=== PATIENT | male | born 1985 | race Caucasian/White ===

== ENCOUNTER 2016-09-13 19:44 | Emergency (ER) | payer OTHER ==
[2016-09-13 20:02] VITALS: RESP 18
[2016-09-13] MEDS ORDERED: PROPARACAINE 0.5% OPHTH DROPS 15 ML BTL LEFT EYE STA (20:34)
[2016-09-13] MEDS ORDERED: DIPH,PERTUS(ACELL)TETVAC-LF 0.5 ML VIAL IM ONE (20:43)
--- NOTE | 2016-09-13 20:47 | ED ---
General Adult HPI - General Chief complaint: Eye Problems Stated complaint: metal in eye Time Seen by Provider: 09/13/16 20:32 Source: patient, RN notes reviewed Mode of arrival: ambulatory Limitations: no limitations - History of Present Illness Initial comments: This is a 31-year-old male who presents with a foreign body to the left eye. Patient states this happened this morning at work around 7am. 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 Patient is not sure if he is up to date on his tetanus shot. Patient states the vision in his left eye is somewhat blurry. Patient states he tried to flush out his eye but was unsuccessful with removal of the foreign body. Patient does not wear contacts. Patient denies any recent fever, chills, shortness breath, chest pain , abdominal pain, nausea/vomiting/diarrhea, back pain, numbness, tingling, hematuria, headache, or any other complaints. - Related Data Home Medications Medication Instructions Recorded Confirmed [id number] 1 tab PO Q4HR PRN 10/12/15 08/01/16 [Excedrin] HYDROmorphone HCL [Dilaudid] 8 mg PO Q3-4H PRN 10/12/15 08/01/16 Ibuprofen [Motrin] 800 mg PO Q8HR PRN 10/12/15 08/01/16 Methadone [Dolophine] 10 mg PO Q12HR 10/12/15 08/01/16 Heparin Sod 1000 Unit/1Ml [Heparin 0 unit IV DAILY 11/11/15 08/01/16 Sodium] IV Vancomycin Per Pharmacy 0 mg IVPB DAILY 11/11/15 08/01/16 [Vancomycin IV (Pharmacy to dose)] Lansoprazole [Prevacid] 15 mg PO DAILY PRN 11/11/15 08/01/16 diphenhydrAMINE [Benadryl] 50 mg PO Q4H PRN 11/11/15 08/01/16 Previous Rx's Medication Instructions Recorded Amoxic-Pot Clav 875-125Mg 1 tab PO Q12HR 7 Days 08/01/16 [Augmentin 875-125] Ofloxacin [Floxin 0.3% Otic Soln] 10 drops LEFT EAR BID 14 Days 08/01/16 Erythromycin Ophth Oint [Romycin 1 applic LEFT EYE QID 5 Days 09/13/16 Ophth Oint] traMADol HCL [Ultram] 50 mg PO Q6HR #12 tab 09/13/16 Allergies Allergy/AdvReac Type Severity Reaction Status Date / Time cefepime Allergy Rash/Hives Verified 09/13/16 20:02 prochlorperazine edisylate Allergy SEIZURE Verified 09/13/16 20:02 [From Compazine] prochlorperazine maleate Allergy SEIZURE Verified 09/13/16 20:02 [From Compazine] Review of Systems ROS Statement: Those systems with pertinent positive or pertinent negative responses have been documented in the HPI. ROS Other: All systems not noted in ROS Statement are negative. Past Medical History Past Medical History: Asthma, GERD/Reflux Additional Past Medical History / Comment(s): 10/12/15 Pt is a direct admit with osteomyelitis sternum. He has been having pain swelling and redness for past 2 months. Pt states had quit heroin for a year Additional hx; lower back pain with arthritis, herniated discs, migraines , seizure with compazine as a child and once while in rehab in 2013. History of Any Multi-Drug Resistant Organisms: None Reported Past Surgical History: No Surgical Hx Reported Additional Past Surgical History / Comment(s): HAD EAR SURGERY AN twice. Cystoscopy Past Anesthesia/Blood Transfusion Reactions: No Reported Reaction Past Psychological History: ADD/ADHD, Anxiety Additional Psychological History / Comment(s): Pt lives with his mother. He states he has hx of heroin iv drug use. His physician has prescribed dilaudid but it is not covering the pain per pt. He states he takes the dialudid as prescribed. Smoking Status: Current every day smoker Past Alcohol Use History: Occasional Additional Past Alcohol Use History / Comment(s): Pt states he started smoking at age 18 or 19. He is 1PPD smoker. Past Drug Use History: None Reported Additional Drug Use History / Comment(s): Pt has hx of heroin addiction, opiate addiction. He was clean of heroin for about 1 yr with relapse 2 months ago and last heroin used 2 days ago. He has been buying methadone on the street and has a prescripition for dilaudid which he states is not covering the pain. He states he takes the dilaudid as prescribed. - Past Family History Father Additional Family Medical History / Comment(s): FATHER HAS EMPHYSEMA AND STAGE IV LUNG CA. ALSO HAS AN AORTIC ANEURYSM. Mother Family Medical History: Cancer Additional Family Medical History / Comment(s): BREAST CANCER. General Exam - General Exam Comments Initial Comments: General: The patient is awake and alert, in no distress, and does not appear acutely ill. Eye: There is mild conjunctival injection of the left eye. There is a foreign body noted to the 2 o'clock and 7 o'clock position of the eye. There is no foreign body noted with eyelid eversion. There is no purulent drainage. Pupils are equal, round and reactive to light, extra-ocular movements are intact. No nystagmus. There is normal conjunctiva of the right eye. No signs of icterus. Visual acuity is 20/40 of the left eye and 20/25 of the right eye. Neck: The neck is supple, there is no tenderness or JVD. Cardiovascular: There is a regular rate and rhythm. No murmur, rub or gallop is appreciated. Respiratory: Lungs are clear to auscultation, respirations are non-labored, breath sounds are equal. No wheezes, stridor, rales, or rhonchi. Musculoskeletal: Normal ROM, no tenderness. Strength 5/5. Sensation intact. Radial Pulses equal bilaterally 2+. Neurological: A&O x 3. CN II-XII intact, There are no obvious motor or sensory deficits. Coordination appears grossly intact. Speech is normal. Skin: Skin is warm and dry and no rashes or lesions are noted. Psychiatric: Cooperative, appropriate mood & affect, normal judgment. Limitations: no limitations Course Vital Signs 09/13/16 09/13/16 19:59 21:58 Temperature 98.5 F 98 F Pulse Rate 79 84 Respiratory 18 18 Rate Blood Pressure 142/79 140/68 O2 Sat by Pulse 98 96 Oximetry Procedures - Procedures Initial comment: A slit lamp exam was performed and rust ring with metal foreign body was noted to the 2:00 and 7:00 positions. Proparacaine was used to anesthetize the eye. Patient's symptoms were relieved after proparacaine drops. Used cotton tip to attempt to remove foreign body. No foreign body was removed with cotton tip. An [place] brush was used to remove the rust ring. Foreign body was removed successfully from 2 o'clock position and 7:00 positions. Rust ring was unable to be removed fully. Inverted lids to check for foreign body and no foreign body was noted. Patient tolerated procedure well. Medical Decision Making - Medical Decision Making This is a 31-year-old male who presents with foreign body to left eye. On physical exam There is mild conjunctival injection of the left eye. There is a foreign body noted to the 2 o'clock and 7:00 positions of the eye. There is no foreign body noted with eyelid eversion. There is no purulent drainage. Pupils are equal, round and reactive to light, extra-ocular movements are intact. No nystagmus. There is normal conjunctiva of the right eye. No signs of icterus. Visual acuity is 20/40 of the left eye and 20/25 of the right eye. Proparacaine was applied to the left eye with relief of symptoms. A slit lamp exam was performed and rust ring with metcal foreign body was noted to the 2:00 and 7:00 positions. Proparacaine was used to anesthetize the eye. Patient's symptoms were relieved after proparacaine drops. Used cotton tip to attempt to remove foreign body. No foreign body was removed with cotton tip. An [place] brush was used to remove the rust ring. Foreign body was successfully removed from 2 o'clock position and 7:00 positions. Rust ring was unable to be fully removed. Everted eyelids to check for foreign body and no foreign body was noted. Patient tolerated procedure well. I discussed that patient needs to follow-up with ophthalmology tomorrow. Patient will be given a prescription for erythromycin ointment to be applied 4 times daily for the next 5 days. Discussed the patient will be given a prescription for pain medication otherwise Tylenol or Motrin will be useful. Discussed return parameters.Discussed that patient should follow up with PCP in one to 2 days or return to the [facility] for any worsening symptoms or for any further concerns. Patient was receptive to this plan and patient will be discharged home. Disposition Clinical Impression: Foreign body in eyeball, left, Corneal rust ring of left eye Disposition: HOME SELF-CARE Condition: Good Instructions: Eye Foreign Body (ED) Additional Instructions: Please use antibiotic eye ointment 4 times daily to the left eye. Please follow -up with ophthalmology tomorrow. Please use medication as discussed. Please follow-up with family doctor in the next 2 days of symptoms have not improved. Please return to emergency room if the symptoms increase or worsen or for any other concerns. Prescriptions: Erythromycin Ophth Oint [Romycin Ophth Oint] 1 applic LEFT EYE QID 5 Days traMADol HCL [Ultram] 50 mg PO Q6HR #12 tab Referrals: Pedro Pablo Nunez MD [Primary Care Provider] - 1-2 days Jacek Cruz MD [STAFF PHYSICIAN] - 1-2 days Time of Disposition: 21:46
[2016-09-13 22:00] VITALS: BP 140/68; PULSE 84; TEMP 98
[2016-09-14] MEDS ORDERED: ERYTHROMYCIN 5 MG/GM OPHTH OINT 3.5 GM TUBE LEFT EYE SCH
== END 2016-09-13 21:58 | disposition home or self-care (01) ==
LOC: EC 19:44
DX: T15.02XA Foreign body in cornea, left eye, initial encounter (principal); Z23 Encounter for immunization; F17.200 Nicotine dependence, unspecified, uncomplicated; X58.XXXA Exposure to other specified factors, initial encounter; Y92.69 Other specified industrial and construction area as the place of occurrence of the external cause; Y99.0 Civilian activity done for income or pay; Z79.899 Other long term (current) drug therapy; Z88.1 Allergy status to other antibiotic agents; Z88.8 Allergy status to other drugs, medicaments and biological substances; F11.99 Opioid use, unspecified with unspecified opioid-induced disorder; Z79.2 Long term (current) use of antibiotics; Z79.01 Long term (current) use of anticoagulants
CPT/HCPCS: 65222; 90471; 90715; 99283

== ENCOUNTER 2016-10-17 02:23 | Emergency (ER) | payer OTHER ==
[2016-10-17 02:39] VITALS: RESP 16; TEMP 98.1
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
--- NOTE | 2016-10-17 03:31 | CT ---
PROCEDURE: CT HEAD Without Contrast HISTORY: 31-year-old male with head pain. COMPARISON: CT head 08/01/2016 TECHNIQUE: CT imaging was obtained through the head. Coronal and sagittal reformations were performed. DOSE: Total Exam volume computed tomography dose index (CTDIvol) = 60.3 mGy and Dose Length Product (DLP) = 1072.3 mGY-cm. FINDINGS: There is no evidence of acute intracranial hemorrhage, mass effect, or midline shift. The ventricles, sulci, and cisternal spaces are within normal limits. The edmonds-white matter differentiation is preserved. The bony structures are intact. Visualized mastoid air cells are clear. Mild mucosal thickening throughout the paranasal sinuses Visualized portions of the orbits are within normal limits. IMPRESSION: 1. No CT evidence of acute intracranial abnormality. 2. Other findings as detailed above.
--- NOTE | 2016-10-17 03:34 | XR ---
PROCEDURE: FILM CXR 1 VIEW HISTORY: 31-year-old male with altered mental status. COMPARISON: Chest radiograph 11/30/2015 TECHNIQUE: Frontal view of the chest was obtained. FINDINGS/IMPRESSION: Stable cardiomediastinal silhouette. The lungs are clear without evidence of focal consolidation, pleural effusion, or pneumothorax. Bones are unremarkable for age, without evidence of displaced fracture.
[2016-10-17 04:31] LABS: ALT 38 U/L (21-72); AST 47 U/L (17-59); Alcohol <10 mg/dL; Alkaline Phosphatase 104 U/L (38-126); Anion Gap 13 mmol/L; Calcium 9.4 mg/dL (8.4-10.2); Carbon Dioxide 23 mmol/L (22-30); Chloride 103 mmol/L (98-107); Glucose 77 mg/dL (74-99); Non-African American GFR(MDRD) >60 (>60 ml/min/1.73 sqM); Potassium 4.6 mmol/L (3.5-5.1); Sodium 139 mmol/L (137-145); Total Bilirubin 0.8 mg/dL (0.2-1.3); Total Protein 8.3 g/dL (6.3-8.2)
[2016-10-17 04:32] LABS: Blood Urea Nitrogen 21 mg/dL (9-20)
[2016-10-17 04:46] LABS: Creatine Kinase 412 U/L (55-170)
[2016-10-17 04:59] LABS: Troponin I <0.012 ng/mL (0.000-0.034)
[2016-10-17 05:13] LABS: Appearance,Urine Cloudy (Clear); Bacteria,Urine Rare /hpf; Bilirubin,Urine Negative (Negative); Glucose,Urine (UA) Negative (Negative); Ketones,Urine 1+ (Negative); Leukocyte Esterase,Urine Negative (Negative); Mucus,Urine Few /hpf; Nitrite,Urine Negative (Negative); PH, Urine 6.5 (5.0-8.0); Particle Count 7107; Protein,Urine Negative (Negative); RBC,Urine <1 /hpf (0-5); Specific Gravity,Urine 1.012 (1.001-1.035); Squamous Epithelial Cell,Urine 13 /hpf (0-4); UA Billing (MACRO vs. MICRO) MICRO; Urobilinogen,Urine <2.0 mg/dL (<2.0); WBC,Urine 1 /hpf (0-5)
[2016-10-17 05:26] LABS: Basophils % (A) 0 %; CH 28.8; CHCM 33.8; Eosinophils # (A) 0.3 k/uL (0-0.7); Eosinophils % (A) 4 %; HCT 42.2 % (39.0-53.0); HDW 3.04; HGB 13.6 gm/dL (13.0-17.5); Luc # (Auto) 0.11; Luc % (Auto) 2; Lymphocytes # (A) 0.6 k/uL (1.0-4.8); Lymphocytes % (A) 9 %; MCH 27.6 pg (25.0-35.0); MCHC 32.3 g/dL (31.0-37.0); MCV 85.5 fL (80.0-100.0); Monocytes # (A) 0.5 k/uL (0-1.0); Monocytes % (A) 7 %; Neutrophils # (A) 5.5 k/uL (1.3-7.7); Neutrophils % (A) 79 %; RBC 4.93 m/uL (4.30-5.90); RDW 12.1 % (11.5-15.5); WBC (Perox) 7.77
[2016-10-17 06:12] VITALS: BP 138/62; PULSE 78
== END 2016-10-17 06:32 | disposition home or self-care (01) ==
LOC: EC 02:23
DX: R41.82 Altered mental status, unspecified (principal); K21.9 Gastro-esophageal reflux disease without esophagitis; F17.200 Nicotine dependence, unspecified, uncomplicated; F11.90 Opioid use, unspecified, uncomplicated; Z79.891 Long term (current) use of opiate analgesic; Z79.899 Other long term (current) drug therapy; Z88.8 Allergy status to other drugs, medicaments and biological substances; Z88.1 Allergy status to other antibiotic agents
CPT/HCPCS: 36415; 70450; 71010; 80053; 80306; 80320; 81001; 82140; 82550; 82553; 84484; 85025; 93005; 99285

== ENCOUNTER → 2016-11-13 | Outpatient (CLI) | payer OTHER ==
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
== END | disposition home or self-care (01) ==
LOC: NEUROMAIN 09:24
PROVIDERS: ATTEND Family Medicine
DX: R56.9 Unspecified convulsions (principal)
CPT/HCPCS: 95816

== ENCOUNTER 2017-02-12 14:41 | Observation (INO) | payer OTHER ==
--- NOTE | 2017-02-12 14:53 | ED ---
General Adult HPI - General Chief complaint: Extremity Injury, Upper Stated complaint: L hand infection Time Seen by Provider: 02/12/17 14:53 Source: patient, RN notes reviewed, old records reviewed Mode of arrival: ambulatory Limitations: no limitations - History of Present Illness Initial comments: This is a 31-year-old male to the ER for evaluation of hand swelling left hand pain. Patient states he did punch a wall and is complaining of pain and swelling in his left hand. Patient has significant track guzman throughout upper extremities, patient has left hand pain. Left hand swelling and erythema. Denies fevers. Denies recent IV drug abuse - Related Data Home Medications Medication Instructions Recorded Confirmed Meinzax-Nogz-Kcta [id number] 1 tab PO Q4HR PRN 10/12/15 08/01/16 [Excedrin] HYDROmorphone HCL [Dilaudid] 8 mg PO Q3-4H PRN 10/12/15 08/01/16 Ibuprofen [Motrin] 800 mg PO Q8HR PRN 10/12/15 08/01/16 Methadone [Dolophine] 10 mg PO Q12HR 10/12/15 08/01/16 Heparin Sod 1000 Unit/1Ml [Heparin 0 unit IV DAILY 11/11/15 08/01/16 Sodium] IV Vancomycin Per Pharmacy 0 mg IVPB DAILY 11/11/15 08/01/16 [Vancomycin IV (Pharmacy to dose)] Lansoprazole [Prevacid] 15 mg PO DAILY PRN 11/11/15 08/01/16 diphenhydrAMINE [Benadryl] 50 mg PO Q4H PRN 11/11/15 08/01/16 Previous Rx's Medication Instructions Recorded Amoxic-Pot Clav 875-125Mg 1 tab PO Q12HR 7 Days 08/01/16 [Augmentin 875-125] Ofloxacin [Floxin 0.3% Otic Soln] 10 drops LEFT EAR BID 14 Days 08/01/16 Erythromycin Ophth Oint [Romycin 1 applic LEFT EYE QID 5 Days 09/13/16 Ophth Oint] traMADol HCL [Ultram] 50 mg PO Q6HR #12 tab 09/13/16 Allergies Allergy/AdvReac Type Severity Reaction Status Date / Time cefepime Allergy Rash/Hives Verified 02/12/17 14:49 prochlorperazine edisylate Allergy SEIZURE Verified 02/12/17 14:49 [From Compazine] prochlorperazine maleate Allergy SEIZURE Verified 02/12/17 14:49 [From Compazine] Review of Systems ROS Statement: Those systems with pertinent positive or pertinent negative responses have been documented in the HPI. ROS Other: All systems not noted in ROS Statement are negative. Past Medical History Past Medical History: Asthma, GERD/Reflux Additional Past Medical History / Comment(s): 10/12/15 Pt is a direct admit with osteomyelitis sternum. He has been having pain swelling and redness for past 2 months. Pt states had quit heroin for a year Additional hx; lower back pain with arthritis, herniated discs, migraines , seizure with compazine as a child and once while in rehab in 2013. History of Any Multi-Drug Resistant Organisms: None Reported Past Surgical History: No Surgical Hx Reported Additional Past Surgical History / Comment(s): HAD EAR SURGERY AN twice. Cystoscopy Past Anesthesia/Blood Transfusion Reactions: No Reported Reaction Past Psychological History: ADD/ADHD, Anxiety Smoking Status: Current every day smoker Past Alcohol Use History: Occasional Past Drug Use History: None Reported - Past Family History Father Additional Family Medical History / Comment(s): FATHER HAS EMPHYSEMA AND STAGE IV LUNG CA. ALSO HAS AN AORTIC ANEURYSM. Mother Family Medical History: Cancer Additional Family Medical History / Comment(s): BREAST CANCER. General Exam - General Exam Comments Initial Comments: significant swelling R hand, warmth, edema Limitations: no limitations General appearance: alert, in no apparent distress Head exam: Present: atraumatic, normocephalic, normal inspection Eye exam: Present: normal appearance, PERRL, EOMI. Absent: scleral icterus, conjunctival injection, periorbital swelling ENT exam: Present: normal exam, mucous membranes moist Neck exam: Present: normal inspection. Absent: tenderness, meningismus, lymphadenopathy Respiratory exam: Present: normal lung sounds bilaterally. Absent: respiratory distress, wheezes, rales, rhonchi, stridor Cardiovascular Exam: Present: regular rate, normal rhythm, normal heart sounds. Absent: systolic murmur, diastolic murmur, rubs, gallop, clicks GI/Abdominal exam: Present: soft, normal bowel sounds. Absent: distended, tenderness, guarding, rebound, rigid Extremities exam: Present: normal inspection, full ROM, normal capillary refill. Absent: tenderness, pedal edema, joint swelling, calf tenderness Back exam: Present: normal inspection Neurological exam: Present: alert, oriented X3, CN II-XII intact Psychiatric exam: Present: normal affect, normal mood Skin exam: Present: warm, dry, intact, normal color. Absent: rash Course Vital Signs 02/12/17 14:46 Temperature 97.9 F Pulse Rate 119 H Respiratory 18 Rate Blood Pressure 135/83 O2 Sat by Pulse 99 Oximetry - Reevaluation(s) Reevaluation #1: 02/12/17 16:37 Patient is in no acute distress Medical Decision Making - Medical Decision Making 31 no the ER with left hand abscess likely IV drug abuse, patient will be admitted for IV antibiotics, evaluation by hand surgery - Lab Data Result diagrams: 02/12/17 15:32 02/12/17 15:32 Lab Results 02/12/17 02/12/17 02/12/17 Range/Units 15:32 15:32 15:32 WBC 9.2 (3.8-10.6) k/uL RBC 4.86 (4.30-5.90) m/uL Hgb 14.2 (13.0-17.5) gm/dL Hct 39.5 (39.0-53.0) % MCV 81.2 (80.0-100.0) fL MCH 29.3 (25.0-35.0) pg MCHC 36.0 (31.0-37.0) g/dL RDW 12.7 (11.5-15.5) % Plt Count 250 (150-450) k/uL Neutrophils % 84 % Lymphocytes % 7 % Monocytes % 4 % Eosinophils % 4 % Basophils % 1 % Neutrophils # 7.7 (1.3-7.7) k/uL Lymphocytes # 0.6 L (1.0-4.8) k/uL Monocytes # 0.4 (0-1.0) k/uL Eosinophils # 0.4 (0-0.7) k/uL Basophils # 0.1 (0-0.2) k/uL PT 10.4 (9.0-12.0) sec INR 1.0 (<1.1) APTT 27.2 (22.0-30.0) sec Sodium 138 (137-145) mmol/L Potassium 4.4 (3.5-5.1) mmol/L Chloride 102 (98-107) mmol/L Carbon Dioxide 26 (22-30) mmol/L Anion Gap 10 mmol/L BUN 9 (9-20) mg/dL Creatinine 0.80 (0.66-1.25) mg/dL Est GFR (MDRD) Af Amer >60 (>60 ml/min/1.73 sqM) Est GFR (MDRD) Non-Af >60 (>60 ml/min/1.73 sqM) Glucose 106 H (74-99) mg/dL Calcium 9.4 (8.4-10.2) mg/dL Phosphorus 3.1 (2.5-4.5) mg/dL Magnesium 1.6 (1.6-2.3) mg/dL Total Bilirubin 0.7 (0.2-1.3) mg/dL AST 20 (17-59) U/L ALT 34 (21-72) U/L Alkaline Phosphatase 131 H (38-126) U/L Total Protein 7.0 (6.3-8.2) g/dL Albumin 3.8 (3.5-5.0) g/dL - Radiology Data Radiology results: report reviewed (X-ray left hand shows no osteo, no air), image reviewed Disposition Clinical Impression: Abscess of left hand, IV drug abuse Disposition: ADMITTED IP TO THIS HOSP Condition: Good Referrals: Pedro Pablo Nunez MD [Primary Care Provider] - 1-2 days
[2017-02-12] MEDS ORDERED: SODIUM CHLORIDE 0.9% 1,000 ML IV STA (15:10)
--- NOTE | 2017-02-12 15:28 | XR ---
EXAMINATION TYPE: XR hand complete LT DATE OF EXAM: 02/12/2017 COMPARISON: NONE HISTORY: Injury pain TECHNIQUE: 3 views FINDINGS: There is significant soft tissue swelling on the dorsum of the hand. The metacarpals appear intact. I see no fracture. Joint spaces are normal. IMPRESSION: Significant soft tissue swelling. No fracture seen.
[2017-02-12 15:48] LABS: Basophils # (A) 0.1 k/uL (0-0.2); Basophils % (A) 1 %; CHCM 35.8; Eosinophils # (A) 0.4 k/uL (0-0.7); Eosinophils % (A) 4 %; HCT 39.5 % (39.0-53.0); HDW 2.86; HGB 14.2 gm/dL (13.0-17.5); Luc # (Auto) 0.07; Luc % (Auto) 1; Lymphocytes # (A) 0.6 k/uL (1.0-4.8); Lymphocytes % (A) 7 %; MCH 29.3 pg (25.0-35.0); MCV 81.2 fL (80.0-100.0); Monocytes # (A) 0.4 k/uL (0-1.0); Monocytes % (A) 4 %; Neutrophils # (A) 7.7 k/uL (1.3-7.7); Neutrophils % (A) 84 %; RBC 4.86 m/uL (4.30-5.90); RDW 12.7 % (11.5-15.5); WBC 9.2 k/uL (3.8-10.6); WBC (Perox) 8.02
[2017-02-12] MEDS ORDERED: IV VANCOMYCIN PER PHARMACY 1 EACH MISC MISCELLANE PRN (15:58)
[2017-02-12] MEDS ORDERED: MORPHINE SULFATE 4 MG/ML SYRINGE IVP STA (15:58)
[2017-02-12 16:03] LABS: ALT 34 U/L (21-72); AST 20 U/L (17-59); Alkaline Phosphatase 131 U/L (38-126); Anion Gap 10 mmol/L; Blood Urea Nitrogen 9 mg/dL (9-20); Calcium 9.4 mg/dL (8.4-10.2); Carbon Dioxide 26 mmol/L (22-30); Chloride 102 mmol/L (98-107); Glucose 106 mg/dL (74-99); Magnesium 1.6 mg/dL (1.6-2.3); Non-African American GFR(MDRD) >60 (>60 ml/min/1.73 sqM); Phosphorous 3.1 mg/dL (2.5-4.5); Potassium 4.4 mmol/L (3.5-5.1); Sodium 138 mmol/L (137-145); Total Bilirubin 0.7 mg/dL (0.2-1.3)
[2017-02-12 16:05] LABS: Partial Thromboplastin Time 27.2 sec (22.0-30.0); Prothrombin Time 10.4 sec (9.0-12.0)
[2017-02-12] MEDS ORDERED: AMPICILLIN-SULBACTAM 3 GM in SODIUM CHLORIDE 0.9% 100 ML IVPB STA (16:07)
[2017-02-12] MEDS ORDERED: SODIUM CHLORIDE 0.9% 1,000 ML IV ONE (16:38)
[2017-02-12] MEDS ORDERED: VANCOMYCIN 2,000 MG in SODIUM CHLORIDE 0.9% 500 ML IVPB ONE (17:00)
[2017-02-12] MEDS ORDERED: THIAMINE 100 MG/ML 2 ML VIAL IM STA (17:16)
[2017-02-12] MEDS ORDERED: LORazepam 2 MG/ML SYRINGE IV PRN ×4 (17:16)
[2017-02-12 17:51] VITALS: RESP 18
[2017-02-12] MEDS: LORazepam 1 MG TAB PO SCH ×2 (18:12→21:47)
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
[2017-02-12] MEDS: NICOTINE 14MG/24HR PATCH TRANSDERM SCH (18:47)
[2017-02-12] MEDS: NAPROXEN 250 MG TAB PO SCH (20:30)
[2017-02-12] MEDS: MORPHINE SULFATE 4 MG/ML SYRINGE IVP PRN ×2 (20:31→23:38)
[2017-02-12 23:39] VITALS: TEMP 97.9
[2017-02-12] MEDS: AMPICILLIN-SULBACTAM 3 GM in SODIUM CHLORIDE 0.9% 100 ML IVPB SCH (23:40)
[2017-02-13] MEDS: VANCOMYCIN 1,500 MG in SODIUM CHLORIDE 0.9% 250 ML IVPB SCH ×2 (00:36→08:54)
[2017-02-13] MEDS: ACETAMINOPHEN TAB 325 MG TAB PO PRN ×2 (01:14→11:53)
[2017-02-13] MEDS: MORPHINE SULFATE 4 MG/ML SYRINGE IVP PRN ×3 (02:40→09:10)
[2017-02-13] MEDS: AMPICILLIN-SULBACTAM 3 GM in SODIUM CHLORIDE 0.9% 100 ML IVPB SCH ×2 (05:44→11:56)
[2017-02-13 07:34] VITALS: BP 123/57; PULSE 85
[2017-02-13] MEDS ORDERED: METHADONE 10 MG TAB PO PRN (08:29)
[2017-02-13] MEDS: NAPROXEN 250 MG TAB PO SCH (08:55)
[2017-02-13] MEDS: LORazepam 1 MG TAB PO SCH (08:55)
[2017-02-13] MEDS: NICOTINE 14MG/24HR PATCH TRANSDERM SCH (08:55)
[2017-02-13] MEDS: ERYTHROMYCIN 5 MG/GM OPHTH OINT 3.5 GM TUBE LEFT EYE SCH ×2 (08:56→13:21)
[2017-02-13] MEDS ORDERED: PANTOPRAZOLE 40 MG TABLET PO SCH (09:00)
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
--- NOTE | 2017-02-13 11:07 | P.CONS ---
History of Present Illness - Reason for Consult Consult date: 02/13/17 Left hand cellulitis Requesting physician: Nelson Eckert - Chief Complaint Left hand pain and swelling - History of Present Illness Patient is a 31 male who apparently got upset after breaking up with his girlfriend about a week and half ago and slammed the dorsum of his hand into a steel table patient did have slight laceration on the dorsum of his left hand and the patient said he was applying a drying powder on it however for the last few days and it has become more swollen and more red and painful. Pain was throbbing with Intensity of 4-5 of 10 and no radiation he did mention that he squeezes slight blood, but no pus denies any high-grade fever and chills with worsening pain swelling or tenderness E the patient presented to [facility] ER where the patient was evaluated by the emergency room physician patient did have x-rays of the left hand that did show significant soft tissue swelling but no bony changes patient did have a normal white count and no fever he has been admitted hospital for observation and started on cefepime and vancomycin ID was consulted for further recommendations regarding antibiotic therapy. As of this morning his left hand redness has much improved the redness is slightly decreased there is no skin breakdown there is no drainage the patient denies having any fever or chills denies significant chest pain shortness of breath or cough no abdominal pain and no diarrhea and categorically denied injecting any drugs in his left hand. Review of Systems Review of system Constitutional: The patient denies any fever or rigors or chills. Eyes: No complaint ENT: No complaint Respiratory: No complaint Cardiovascular: No complaint Gastrointestinal: No complaint Genitourinary: No complaint Musculoskeletal: As per history of present illness Integumentary: As per history of present illness Endocrine : No complaint Psycologial : No complaint Neurological: No complaint. Past Medical History Past Medical History: Asthma, GERD/Reflux Additional Past Medical History / Comment(s): Left sternoclavicular joint osteomyelitis, treated at [facility] Pt states had quit heroin for a year Additional hx; lower back pain with arthritis, herniated discs, migraines , seizure with compazine as a child and once while in rehab in 2013. History of Any Multi-Drug Resistant Organisms: None Reported Past Surgical History: No Surgical Hx Reported Additional Past Surgical History / Comment(s): HAD EAR SURGERY AN twice. Cystoscopy Past Anesthesia/Blood Transfusion Reactions: No Reported Reaction Past Psychological History: ADD/ADHD, Anxiety Smoking Status: Current every day smoker Past Alcohol Use History: Occasional Past Drug Use History: None Reported - Past Family History Father Additional Family Medical History / Comment(s): FATHER HAS EMPHYSEMA AND STAGE IV LUNG CA. ALSO HAS AN AORTIC ANEURYSM. Mother Family Medical History: Cancer Additional Family Medical History / Comment(s): BREAST CANCER. Medications and Allergies Home Medications Medication Instructions Recorded Confirmed Type Ibuprofen [Motrin] 800 mg PO TID PRN 10/12/15 02/13/17 History Methadone [Dolophine] 120 mg PO Q12HR PRN 10/12/15 02/12/17 History Acetaminophen [Tylenol] 1,000 mg PO QID PRN 02/13/17 02/13/17 History Buprenorphine HCl/Naloxone HCl 1 film SL BID 02/13/17 02/13/17 History [Suboxone 8 mg-2 mg Sl Film] Famotidine [Pepcid] 40 mg PO DAILY 02/13/17 02/13/17 History Gabapentin [Neurontin] 100 mg PO DAILY 02/13/17 02/13/17 History cloNIDine HCL [Catapres] 0.1 mg PO HS 02/13/17 02/13/17 History Allergies Allergy/AdvReac Type Severity Reaction Status Date / Time cefepime Allergy Rash/Hives Verified 02/12/17 14:49 prochlorperazine edisylate Allergy SEIZURE Verified 02/12/17 14:49 [From Compazine] prochlorperazine maleate Allergy SEIZURE Verified 02/12/17 14:49 [From Compazine] Physical Exam Vitals: Vital Signs Temp Pulse Pulse Resp BP BP Pulse Ox 02/13/17 07:32 97.9 F 85 18 123/57 99 02/13/17 03:58 18 02/12/17 23:51 18 02/12/17 23:38 97.9 F 80 18 135/83 99 02/12/17 20:00 18 02/12/17 18:22 85 18 02/12/17 17:50 98.5 F 85 18 130/69 98 02/12/17 17:28 98.5 F 111 H 20 137/72 99 02/12/17 14:46 97.9 F 119 H 18 135/83 99 Intake and Output 02/12/17 02/13/17 02/13/17 22:59 06:59 14:59 Intake Total 1250 240 Balance 1250 240 Intake: IV 1050 Ampicillin-Sulbactam 3 gm 100 In Sodium Chloride 0.9% 100 ml @ 100 mls/hr IVPB ONCE STA Rx#:[id number] Sodium Chloride 0.9% 1, 700 000 ml @ 100 mls/hr IV . Q10H ONE Rx#:[id number] Vancomycin 1,500 mg In 250 Sodium Chloride 0.9% 250 ml @ 125 mls/hr IVPB Q8H ASA Rx#:[id number] Oral 200 240 Other: Voiding Method Toilet Toilet # Voids 3 Weight 79.7 kg General: The patient is awake and alert, in no distress. Skin: no rashes or lesions are noted no masses palpable. Eye: Pupils are equal, round and reactive to light, there is normal conjunctiva bilaterally. Ears, nose, mouth and throat: There are moist mucous membranes and no oral lesions. Neck: The neck is supple, there is no thyromegaly. Cardiovascular: S1-S2 regular rate and rhythm. No murmur. Respiratory: Unlabored breathing clear to auscultation bilaterally Gastrointestinal: Soft, non-distended, non-tender abdomen without masses or organomegaly noted. Musculoskeletal: Left had is swollen with minimal redness no fluctuation induration or drainage was noticed Neurological: There are no obvious motor or sensory deficits. Coordination appears grossly intact. Speech is normal. Psychiatric: Patient is awake and alert and oriented 3, appropriate mood & affect, normal judgment. Results CBC & Chem 7: 02/12/17 15:32 02/12/17 15:32 Labs: Abnormal Lab Results - Last 24 Hours (Table) 02/12/17 02/12/17 02/12/17 Range/Units 15:32 15:32 15:32 Lymphocytes # 0.6 L (1.0-4.8) k/uL ESR 28 H (0-15) mm/hr Glucose 106 H (74-99) mg/dL Alkaline Phosphatase 131 H (38-126) U/L Assessment and Plan (1) Cellulitis of hand, left Status: Acute Plan: 1-left hand cellulitis the patient swelling and redness started after he slammed his hand on the steel table the likely organism need to cover will be the gram-positive skin michelle and less likely gram-negative pathogen and did show overall improvement within 24 hour x-rays negative for any osteomyelitis 2-as the patient is insisting on going home the patient can be switched over to Bactrim DS one twice a day for another 10 days along with an Ted wrap to the left hand to keep some of the swelling down and follow-up in the office in about a week times
[2017-02-13] MEDS ORDERED: MULTIVITAMINS, THERA 1 EACH TAB PO SCH (12:00)
[2017-02-13 13:03] VITALS: BMI 25.2
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
[2017-02-14] MEDS ORDERED: VANCOMYCIN TROUGH DUE 1 EACH MISC MISCELLANE ONE
== END 2017-02-13 15:04 | disposition home or self-care (01) ==
LOC: EC 14:41 → 3OBS 16:38
PROVIDERS: ADMIT Hospitalist; ATTEND Hospitalist
DX: L03.114 Cellulitis of left upper limb (principal); F17.210 Nicotine dependence, cigarettes, uncomplicated; F11.99 Opioid use, unspecified with unspecified opioid-induced disorder; F41.9 Anxiety disorder, unspecified; F90.9 Attention-deficit hyperactivity disorder, unspecified type; K21.9 Gastro-esophageal reflux disease without esophagitis; J45.20 Mild intermittent asthma, uncomplicated; Z79.01 Long term (current) use of anticoagulants; Z79.899 Other long term (current) drug therapy; Z79.2 Long term (current) use of antibiotics; Z88.8 Allergy status to other drugs, medicaments and biological substances; Z80.1 Family history of malignant neoplasm of trachea, bronchus and lung; Z80.3 Family history of malignant neoplasm of breast
CPT/HCPCS: 96361 ×5; 96375 ×3; 99285; 96365; 96366 ×2; 96367; 96376 ×2; 36415; 80053; 85652; 83735; 84100; 85025; 85610; 85730; 87040; 73130; G0378 ×2; S4990 ×2; J3370 ×2; J2060; J2270 ×2; J0295 ×2

== ENCOUNTER → 2017-04-26 | Outpatient (CLI) | payer OTHER ==
[2017-04-26 15:51] LABS: Basophils % (A) 0 %; CH 28.4; CHCM 34.9; Eosinophils # (A) 0.2 k/uL (0-0.7); Eosinophils % (A) 5 %; HCT 41.7 % (39.0-53.0); HDW 2.82; HGB 14.6 gm/dL (13.0-17.5); Luc # (Auto) 0.11; Luc % (Auto) 4; Lymphocytes # (A) 1.3 k/uL (1.0-4.8); Lymphocytes % (A) 42 %; MCH 28.5 pg (25.0-35.0); MCV 81.5 fL (80.0-100.0); Mean Platelet Volume 8.5; Monocytes # (A) 0.2 k/uL (0-1.0); Monocytes % (A) 5 %; Neutrophils # (A) 1.4 k/uL (1.3-7.7); Neutrophils % (A) 45 %; RBC 5.11 m/uL (4.30-5.90); RDW 13.5 % (11.5-15.5); WBC 3.1 k/uL (3.8-10.6); WBC (Perox) 3.07
[2017-04-26 16:00] LABS: ALT 26 U/L (21-72); AST 25 U/L (17-59); Alkaline Phosphatase 108 U/L (38-126); Anion Gap 10 mmol/L; Blood Urea Nitrogen 14 mg/dL (9-20); Calcium 9.5 mg/dL (8.4-10.2); Carbon Dioxide 26 mmol/L (22-30); Chloride 105 mmol/L (98-107); Glucose 78 mg/dL (74-99); Non-African American GFR(MDRD) >60 (>60 ml/min/1.73 sqM); Potassium 4.7 mmol/L (3.5-5.1); Sodium 141 mmol/L (137-145); Total Bilirubin 0.3 mg/dL (0.2-1.3)
[2017-04-26 16:11] LABS: Appearance,Urine Clear (Clear); Bilirubin,Urine Negative (Negative); Glucose,Urine (UA) Negative (Negative); Ketones,Urine Negative (Negative); Leukocyte Esterase,Urine Negative (Negative); Nitrite,Urine Negative (Negative); PH, Urine 5.5 (5.0-8.0); Protein,Urine Negative (Negative); Specific Gravity,Urine 1.021 (1.001-1.035); UA Billing (MACRO vs. MICRO) CHEM; Urobilinogen,Urine <2.0 mg/dL (<2.0)
[2017-04-26 16:30] LABS: Hepatitis B Surface Ag Index 0.08
== END | disposition home or self-care (01) ==
LOC: LABWHC1 15:00
PROVIDERS: ATTEND Family Medicine
DX: F19.10 Other psychoactive substance abuse, uncomplicated (principal)
CPT/HCPCS: 36415; 80053; 81003; 85025; 86780; 87340

== ENCOUNTER 2017-04-29 15:06 | Emergency (ER) | payer OTHER ==
[2017-04-29 15:10] VITALS: RESP 18
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
[2017-04-29 16:46] LABS: ALT 42 U/L (21-72); AST 33 U/L (17-59); Alkaline Phosphatase 121 U/L (38-126); Anion Gap 8 mmol/L; Blood Urea Nitrogen 17 mg/dL (9-20); Calcium 9.4 mg/dL (8.4-10.2); Carbon Dioxide 27 mmol/L (22-30); Chloride 104 mmol/L (98-107); Glucose 74 mg/dL (74-99); Non-African American GFR(MDRD) >60 (>60 ml/min/1.73 sqM); Potassium 4.6 mmol/L (3.5-5.1); Sodium 139 mmol/L (137-145); Total Bilirubin 0.4 mg/dL (0.2-1.3); Total Protein 7.8 g/dL (6.3-8.2)
[2017-04-29 16:49] LABS: Basophils % (A) 1 %; CH 28.2; CHCM 34.5; Eosinophils # (A) 0.6 k/uL (0-0.7); Eosinophils % (A) 10 %; HCT 42.3 % (39.0-53.0); HDW 2.78; HGB 14.7 gm/dL (13.0-17.5); Luc # (Auto) 0.08; Luc % (Auto) 1; Lymphocytes # (A) 1.2 k/uL (1.0-4.8); Lymphocytes % (A) 21 %; MCH 28.4 pg (25.0-35.0); MCHC 34.7 g/dL (31.0-37.0); MCV 81.9 fL (80.0-100.0); Mean Platelet Volume 6.5; Monocytes # (A) 0.4 k/uL (0-1.0); Monocytes % (A) 7 %; Neutrophils # (A) 3.4 k/uL (1.3-7.7); Neutrophils % (A) 60 %; RBC 5.17 m/uL (4.30-5.90); RDW 13.5 % (11.5-15.5); WBC 5.6 k/uL (3.8-10.6); WBC (Perox) 5.13
[2017-04-29 17:11] VITALS: BP 134/66; PULSE 77; TEMP 97.8
== END 2017-04-29 17:09 | disposition home or self-care (01) ==
LOC: EC 15:06
DX: R79.89 Other specified abnormal findings of blood chemistry (principal); I10 Essential (primary) hypertension; F41.9 Anxiety disorder, unspecified; F17.200 Nicotine dependence, unspecified, uncomplicated; Z79.899 Other long term (current) drug therapy; Z88.1 Allergy status to other antibiotic agents; Z88.8 Allergy status to other drugs, medicaments and biological substances
CPT/HCPCS: 36415; 80053; 85025; 99283

== ENCOUNTER 2017-07-05 19:15 | Emergency (ER) | payer OTHER ==
[2017-07-05 19:21] VITALS: BP 138/76; PULSE 86; RESP 16; TEMP 98.1
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
== END 2017-07-05 20:40 | disposition home or self-care (01) ==
LOC: EC 19:15
DX: L02.414 Cutaneous abscess of left upper limb (principal); F17.200 Nicotine dependence, unspecified, uncomplicated; Z88.1 Allergy status to other antibiotic agents; Z88.8 Allergy status to other drugs, medicaments and biological substances; Z79.899 Other long term (current) drug therapy
CPT/HCPCS: 10060; 99282

== ENCOUNTER → 2017-09-06 | Outpatient (CLI) | payer OTHER ==
--- NOTE | 2017-09-07 20:55 | XR ---
EXAMINATION TYPE: XR cervical spine comp DATE OF EXAM: 09/06/2017 TECHNIQUE: Frontal, lateral, oblique, swimmers, and open mouth view of the cervical spine are obtaine d. HISTORY: R52 PAIN COMPARISON: CT cervical spine August 01, 2016 FINDINGS: The cervical spine is visualized in its entirety from C1 thru the top of T1 level, it is s atisfactory in alignment without evidence of acute fracture or dislocation. The pre-vertebral soft t issue appears within normal limits. The C1-C2 articulation is within normal limits on the open mouth view. Vertebral body heights and disc space heights are maintained. The oblique images are within no rmal limits. Overlying soft tissue is unremarkable. IMPRESSION: Unremarkable study.
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
== END | disposition home or self-care (01) ==
LOC: RADXRMAIN 16:13
PROVIDERS: ATTEND Internal Medicine
DX: M47.816 Spondylosis without myelopathy or radiculopathy, lumbar region (principal); M46.04 Spinal enthesopathy, thoracic region; R52 Pain, unspecified
CPT/HCPCS: 72050; 72070; 72110

== ENCOUNTER → 2017-09-30 | Outpatient (CLI) | payer OTHER ==
--- NOTE | 2017-09-30 21:59 | MR ---
EXAMINATION TYPE: MR lumbar spine wo con DATE OF EXAM: 09/30/2017 COMPARISON: NONE HISTORY: 32-year-old male Low back pain x1 year TECHNIQUE: Multiplanar, multisequence images of the lumbar spine were acquired. FINDINGS: Vertebral body heights are preserved and alignment is maintained. There is mild intervertebral disc desiccation and disc interspace narrowing throughout, sparing L2-L3 and L3-L4. Bulging discs at these levels as well as well as a prominent posterior annular fissure at L4-L5. Facet degenerative change mid to lower lumbar spine. No suspicious bone marrow replacement. Conus medullaris terminates opposite the L2 level which is acceptable. At T12-L1, mild bulging disc without significant canal or foraminal stenosis. At L1-L2, mild bulging disc without significant canal or foraminal stenosis. At L2-L3 and L3-L4, there is facet degenerative change without significant canal or foraminal stenosi s. At L4-L5, bulging disc with posterior annular fissure and facet degenerative change. Changes result i n mild narrowing of the right neuroforamen. No spinal canal stenosis. Disc material closely approache s both traversing L5 nerve roots. At L5-S1, bulging disc with facet degenerative change. Changes mildly narrow the bilateral neural for amen. No spinal canal stenosis. No prevertebral or paravertebral soft tissue abnormality. IMPRESSION: 1. Mild multilevel degenerative disc disease characterized by disc desiccation, disc space narrowing, and disc bulging. There is a posterior annular fissure at L4-L5. The L2-L3 and L3-L4 levels are rela tively spared. 2. Mild facet arthropathy mid to lower lumbar spine. 3. At L4-L5, changes result in mild right-sided neuroforaminal stenosis and disc material closely celena roaches the bilateral traversing L5 nerve roots. 4. At L5-S1, there is mild bilateral neuroforaminal stenosis. 5. No significant spinal canal stenosis.
== END ==
LOC: RADMRIMAIN 19:42
PROVIDERS: ATTEND Internal Medicine
DX: M48.061 Spinal stenosis, lumbar region without neurogenic claudication (principal); M99.73 Connective tissue and disc stenosis of intervertebral foramina of lumbar region; M51.26 Other intervertebral disc displacement, lumbar region; M51.36 Other intervertebral disc degeneration, lumbar region; M46.86 Other specified inflammatory spondylopathies, lumbar region
CPT/HCPCS: 72148

== ENCOUNTER 2018-01-31 22:42 | Emergency (ER) | payer OTHER ==
[2018-01-31 22:51] VITALS: RESP 18
--- NOTE | 2018-01-31 23:03 | ED ---
Seizure HPI - General Chief Complaint: Seizure Stated Complaint: Seizure Time Seen by Provider: 01/31/18 22:53 Source: patient, EMS, RN notes reviewed Mode of arrival: EMS Limitations: no limitations - History of Present Illness Initial Comments: This is a 32-year-old male who presents to the emergency department with chief complaint of seizure. Patient does report a history of seizures, his last being one year ago. Patient states that prior to arrival he was at his mother' s house. Mother reported to EMS that patient was walking down the hallway, started to lean over to one side, hit the wall and landed on the ground. She states that he had a grand mal seizure and was unconscious for a couple of minutes. Patient states he has never followed up with a neurologist and takes no medications for seizures. He states currently that he feels "100%." Denies fevers or chills, chest pain shortness of breath, abdominal pain, nausea or vomiting, dizziness or headache, numbness or tingling. - Related Data Home Medications Medication Instructions Recorded Confirmed Albuterol Inhaler [Ventolin Hfa 2 puff INHALATION RT-QID PRN 07/05/17 01/31/18 Inhaler] Buprenorphine HCl/Naloxone HCl 1 film SL BID 07/05/17 01/31/18 [Suboxone 8 mg-2 mg Sl Film] ALPRAZolam [Xanax] 0.25 mg PO BID PRN 01/31/18 01/31/18 Allergies Allergy/AdvReac Type Severity Reaction Status Date / Time cefepime Allergy Rash/Hives Verified 01/31/18 23:25 prochlorperazine edisylate Allergy SEIZURE Verified 01/31/18 23:25 [From Compazine] prochlorperazine maleate Allergy SEIZURE Verified 01/31/18 23:25 [From Compazine] Review of Systems ROS Statement: Those systems with pertinent positive or pertinent negative responses have been documented in the HPI. ROS Other: All systems not noted in ROS Statement are negative. 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 History of Any Multi-Drug Resistant Organisms: None Reported Past Surgical History: No Surgical Hx Reported Additional Past Surgical History / Comment(s): HAD EAR SURGERY AN INFANT twice. Cystoscopy Past Anesthesia/Blood Transfusion Reactions: No Reported Reaction Past Psychological History: ADD/ADHD, Anxiety Smoking Status: Current every day smoker Past Alcohol Use History: Occasional Past Drug Use History: Heroin - Past Family History Father Additional Family Medical History / Comment(s): FATHER HAS EMPHYSEMA AND STAGE IV LUNG CA. ALSO HAS AN AORTIC ANEURYSM. Mother Family Medical History: Cancer Additional Family Medical History / Comment(s): BREAST CANCER. General Exam - General Exam Comments Initial Comments: General: Awake and alert, well-developed; in no apparent distress. HEENT: Head atraumatic, normocephalic. Pupils are equal, round and reactive to light. Extraocular movements intact. Oropharynx moist without erythema or exudate. Dried blood noted to the left upper lip, however no wounds are noted. Neck: Supple. Normal ROM. Cardiovascular: Regular rate and rhythm. No murmurs, rubs or gallops. Chest symmetrical. Respiratory: Lungs clear to auscultation bilaterally. No wheezes, rales or rhonchi. Normal respiratory effort with no use of accessory muscles. Abdomen: Soft, non-tender, non-distended. No rigidity, rebound or guarding. Normal bowel sounds in all 4 quadrants. Musculoskeletal: Normal ROM, no tenderness bilateral upper and lower extremities. Ambulating normally. Skin: [place], warm and dry without rashes or lesions. Neurological: Alert and oriented x3. CN II-XII grossly intact. Speech is fluent and answers are appropriate. No focal neuro deficits. Psychiatric: Normal mood and affect. No overt signs of depression or anxiety noted. Limitations: no limitations Course Vital Signs 01/31/18 01/31/18 22:46 23:34 Temperature 99.3 F Pulse Rate 97 97 Respiratory 18 18 Rate Blood Pressure 134/61 132/64 O2 Sat by Pulse 99 98 Oximetry Medical Decision Making - Medical Decision Making This is a 32-year-old male who presents to the emergency department with chief complaint of seizure. Patient does have a history of seizures but does not take any medications for it and does not see a neurologist. She reportedly had a witnessed grand mal seizure this evening as reported by his mother to EMS. Patient has no complaints and denies any current symptoms while in the emergency department. CBC, CMP were unremarkable. Computed tomography scan of the brain revealed no acute abnormalities. Patient has been seizure-free throughout entire emergency department stay. Vital signs are stable and patient is in no acute distress. He will be discharged home at this time. Patient will be given referral to neurology. Recommended follow-up with the next couple of days. Patient is in agreement with plan and voices understanding. All questions answered. - Lab Data Result diagrams: 01/31/18 22:55 01/31/18 22:55 Lab Results 01/31/18 01/31/18 02/01/18 Range/Units 22:55 22:55 00:23 WBC 5.0 (3.8-10.6) k/uL RBC 4.75 (4.30-5.90) m/uL Hgb 13.6 (13.0-17.5) gm/dL Hct 39.5 (39.0-53.0) % MCV 83.1 (80.0-100.0) fL MCH 28.6 (25.0-35.0) pg MCHC 34.4 (31.0-37.0) g/dL RDW 13.3 (11.5-15.5) % Plt Count 230 (150-450) k/uL Neutrophils % 63 % Lymphocytes % 20 % Monocytes % 6 % Eosinophils % 8 % Basophils % 1 % Neutrophils # 3.1 (1.3-7.7) k/uL Lymphocytes # 1.0 (1.0-4.8) k/uL Monocytes # 0.3 (0-1.0) k/uL Eosinophils # 0.4 (0-0.7) k/uL Basophils # 0.0 (0-0.2) k/uL Sodium 140 (137-145) mmol/L Potassium 4.0 (3.5-5.1) mmol/L Chloride 104 (98-107) mmol/L Carbon Dioxide 26 (22-30) mmol/L Anion Gap 10 mmol/L BUN 13 (9-20) mg/dL Creatinine 0.80 (0.66-1.25) mg/dL Est GFR (CKD-EPI)AfAm >90 (>60 ml/min/1.73 sqM) Est GFR (CKD-EPI)NonAf >90 (>60 ml/min/1.73 sqM) Glucose 124 H (74-99) mg/dL Calcium 9.3 (8.4-10.2) mg/dL Total Bilirubin 0.2 (0.2-1.3) mg/dL AST 84 H (17-59) U/L ALT 118 H (21-72) U/L Alkaline Phosphatase 75 (38-126) U/L Total Protein 6.4 (6.3-8.2) g/dL Albumin 3.9 (3.5-5.0) g/dL Urine Opiates Screen Not Detected (NotDetected) Ur Oxycodone Screen Not Detected (NotDetected) Urine Methadone Screen Not Detected (NotDetected) Ur Propoxyphene Screen Not Detected (NotDetected) Ur Barbiturates Screen Not Detected (NotDetected) U Tricyclic Antidepress Not Detected (NotDetected) Ur Phencyclidine Scrn Not Detected (NotDetected) Ur Amphetamines Screen Not Detected (NotDetected) U Methamphetamines Scrn Not Detected (NotDetected) U Benzodiazepines Scrn Not Detected (NotDetected) Urine Cocaine Screen Not Detected (NotDetected) U Marijuana (THC) Screen Detected H (NotDetected) - EKG Data EKG Comments: 22:52:26. Normal sinus rhythm with sinus arrhythmia. Minimal voltage criteria for LVH, maybe normal variant. Ventricular rate 91 bpm, MO interval 130, QRS duration 84, QT/QTC 340/418. - Radiology Data Radiology results: report reviewed CT brain without contrast impression: Normal head CT scan. No change. There is noted minimal frontal sinusitis is improved compared to old exam. Disposition Clinical Impression: Generalized seizure Disposition: HOME SELF-CARE Condition: Good Instructions: Recurrent Seizures in Adults (ED) Additional Instructions: Please follow-up with Dr. Srinivasan, neurology within 1-2 days. Please follow up with primary care provider within 1-2 days. Return to emergency department if symptoms should worsen or any concerns arise. Is patient prescribed a controlled substance at d/c from ED?: No Referrals: Sarah Apple MD [Primary Care Provider] - 1-2 days Cholo Srinivasan MD [STAFF PHYSICIAN] - 1-2 days Time of Disposition: 00:52
[2018-01-31 23:19] LABS: Basophils % (A) 1 %; Eosinophils # (A) 0.4 k/uL (0-0.7); Eosinophils % (A) 8 %; HCT 39.5 % (39.0-53.0); HGB 13.6 gm/dL (13.0-17.5); Lymphocytes % (A) 20 %; MCH 28.6 pg (25.0-35.0); MCHC 34.4 g/dL (31.0-37.0); MCV 83.1 fL (80.0-100.0); Mean Platelet Volume 6.6; Monocytes # (A) 0.3 k/uL (0-1.0); Monocytes % (A) 6 %; Neutrophils # (A) 3.1 k/uL (1.3-7.7); Neutrophils % (A) 63 %; Platelet Count 230 k/uL (150-450); RBC 4.75 m/uL (4.30-5.90); RDW 13.3 % (11.5-15.5)
[2018-01-31 23:29] LABS: ALT 118 U/L (21-72); AST 84 U/L (17-59); Albumin 3.9 g/dL (3.5-5.0); Alkaline Phosphatase 75 U/L (38-126); Anion Gap 10 mmol/L; Blood Urea Nitrogen 13 mg/dL (9-20); Calcium 9.3 mg/dL (8.4-10.2); Carbon Dioxide 26 mmol/L (22-30); Chloride 104 mmol/L (98-107); Glucose 124 mg/dL (74-99); Sodium 140 mmol/L (137-145); Total Bilirubin 0.2 mg/dL (0.2-1.3); Total Protein 6.4 g/dL (6.3-8.2)
--- NOTE | 2018-01-31 23:41 | CT ---
EXAMINATION TYPE: CT brain wo con DATE OF EXAM: 01/31/2018 COMPARISON: 10/17/2016 HISTORY: seizure CT DLP: 995.50 mGycm. Automated Exposure Control for Dose Reduction was Utilized. TECHNIQUE: CT scan of the head is performed without contrast. FINDINGS: Ventricles and sulci appear normal. There is no mass effect nor midline shift. There is no sign of intracranial hemorrhage. The calvarium is intact. IMPRESSION: Normal head CT scan. No change. There is noted minimal frontal sinusitis that is improved compared to old exam.
[2018-02-01 00:45] LABS: Amphetamine Screen,Urine Not Detected (NotDetected); Barbiturate Screen,Urine Not Detected (NotDetected); Benzodiazepines Screen,Urine Not Detected (NotDetected); Cocaine Screen,Urine Not Detected (NotDetected); Methadone Screen, Urine Not Detected (NotDetected); Opiate Screen,Urine Not Detected (NotDetected); Oxycodone Screen, Urine Not Detected (NotDetected); Phencyclidine Screen,Urine Not Detected (NotDetected); Tricyclic Antidepressant,Urine Not Detected (NotDetected); Urn Cannabinoid Scrn Detected (NotDetected)
[2018-02-01 01:16] VITALS: BP 130/60; PULSE 89; TEMP 98.2
== END 2018-02-01 01:16 | disposition home or self-care (01) ==
LOC: EC 22:42
DX: G40.409 Other generalized epilepsy and epileptic syndromes, not intractable, without status epilepticus (principal); J32.1 Chronic frontal sinusitis; I49.8 Other specified cardiac arrhythmias; J45.909 Unspecified asthma, uncomplicated; F17.200 Nicotine dependence, unspecified, uncomplicated; Z79.899 Other long term (current) drug therapy; Z88.1 Allergy status to other antibiotic agents; Z88.8 Allergy status to other drugs, medicaments and biological substances; Z82.49 Family history of ischemic heart disease and other diseases of the circulatory system; W22.8XXA Striking against or struck by other objects, initial encounter; Y93.01 Activity, walking, marching and hiking; Y92.89 Other specified places as the place of occurrence of the external cause
CPT/HCPCS: 36415; 70450; 80053; 80306; 85025; 93005; 99285

== ENCOUNTER 2018-09-09 12:30 | Emergency (ER) | payer OTHER ==
[2018-09-09 12:41] VITALS: RESP 16
[2018-09-09] MEDS ORDERED: SODIUM CHLORIDE 0.9% 1,000 ML IV STA (12:58)
--- NOTE | 2018-09-09 14:25 | XR ---
EXAMINATION TYPE: XR forearm LT DATE OF EXAM: 09/09/2018 CLINICAL HISTORY: Pain swelling and redness. Fall injury per patient. TECHNIQUE: Two views of the left forearm are obtained. COMPARISON: None. FINDINGS: There is no acute fracture or dislocation seen in the left radius or ulna. The left elbow and wrist joints appear within normal limits. There are 4 needle fragments in the cubital fossa radi al aspect at level of distal humeral diaphysis seen on 2 views. IMPRESSION: There are 4 linear foreign bodies suspected needle fragments distal humeral level.
--- NOTE | 2018-09-09 14:34 | ED ---
General Adult HPI - General Chief complaint: Extremity Injury, Upper Stated complaint: Left arm pain Time Seen by Provider: 09/09/18 12:51 Source: patient, RN notes reviewed Mode of arrival: ambulatory Limitations: no limitations - History of Present Illness Initial comments: Patient's a 33-year-old male presented to the emergency room today with a chief complaint of increased pain to the left forearm. He does admit that there was a bump there approximately for one month that was nonpainful. He states he slipped on the ice yesterday landing on this area is had increased swelling and pain. Patient does admit to a history of IV drug use. Admits that he's had osteomyelitis in the past. Patient denies any other complaints or symptoms. Patient denies any recent fever, chills, shortness of breath, chest pain, back pain, abdominal pain, nausea or vomiting, headaches or visual changes, or any other complaints. - Related Data Home Medications Medication Instructions Recorded Confirmed Buprenorphine HCl/Naloxone HCl 1 film SUBLINGUAL BID 07/05/17 09/09/18 [Suboxone 8 mg-2 mg Sl Film] Ibuprofen [Motrin] 800 mg PO BID 09/09/18 09/09/18 Previous Rx's Medication Instructions Recorded Cephalexin [Keflex] 500 mg PO Q12HR 10 Days cap 09/09/18 Ibuprofen [Motrin] 800 mg PO Q6HR #30 tab 09/09/18 Sulfamethox-Tmp 800-160Mg [Bactrim 1 tab PO Q12HR #20 tab 09/09/18 DS 800-160 mg] Allergies Allergy/AdvReac Type Severity Reaction Status Date / Time cefepime Allergy Rash/Hives Verified 09/09/18 13:37 prochlorperazine edisylate Allergy SEIZURE Verified 09/09/18 13:37 [From Compazine] prochlorperazine maleate Allergy SEIZURE Verified 09/09/18 13:37 [From Compazine] Review of Systems ROS Statement: Those systems with pertinent positive or pertinent negative responses have been documented in the HPI. ROS Other: All systems not noted in ROS Statement are negative. 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 History of Any Multi-Drug Resistant Organisms: None Reported Past Surgical History: No Surgical Hx Reported Additional Past Surgical History / Comment(s): HAD EAR SURGERY AN twice. Cystoscopy Past Anesthesia/Blood Transfusion Reactions: No Reported Reaction Past Psychological History: ADD/ADHD, Anxiety Smoking Status: Current every day smoker Past Alcohol Use History: Occasional Past Drug Use History: Heroin, Marijuana - Past Family History Father Additional Family Medical History / Comment(s): FATHER HAS EMPHYSEMA AND STAGE IV LUNG CA. ALSO HAS AN AORTIC ANEURYSM. Mother Family Medical History: Cancer Additional Family Medical History / Comment(s): BREAST CANCER. General Exam - General Exam Comments Initial Comments: General: The patient is awake and alert, in no distress, and does not appear acutely ill. Neck: The neck is supple, there is no tenderness or JVD. Cardiovascular: There is a regular rate and rhythm. No murmur, rub or gallop is appreciated. Respiratory: Lungs are clear to auscultation, respirations are non-labored, breath sounds are equal. No wheezes, stridor, rales, or rhonchi. Musculoskeletal/skin: Patient does have moderate swelling to the left forearm. Locally tender to the posterior proximal forearm. There is no lymphangitis. There is some warmth to the posterior aspect. It is firm on palpation there is no fluctuant head. Radial pulses 2+ bilateral. Full range of motion. Strength 5/5. Neurological: A&O x 3. CN II-XII intact, There are no obvious motor or sensory deficits. Coordination appears grossly intact. Speech is normal. Psychiatric: Normal mood and affect. Limitations: no limitations Course Vital Signs 09/09/18 12:33 Temperature 98.8 F Pulse Rate 71 Respiratory 16 Rate Blood Pressure 117/66 O2 Sat by Pulse 100 Oximetry Medical Decision Making - Medical Decision Making Multiple attempts made by nursing staff to establish IV for blood work. No blood or IV was able to be obtained. Patient does have history of former IV drug user. Patient states had a pump for approximately a month but did not become painful until yesterday after falling on the ice there is swelling to the left forearm. Denies fever or chills. Was discussed with patient about possible admission with IV antibiotics. He has declined this stating that he would like to try oral antibiotics outpatient first. Patient will be placed on Bactrim, Keflex. He is advised close follow-up over the next 2 days. Advised return if symptoms increase worsen or for any other concerns. Disposition Clinical Impression: Abscess of forearm, left Disposition: HOME SELF-CARE Condition: Good Instructions (If sedation given, give patient instructions): Abscess (ED) Additional Instructions: Please use medication as discussed. Please follow-up with family doctor in the next 2 days. Please return to emergency room if the symptoms increase or worsen or for any other concerns. Prescriptions: Cephalexin [Keflex] 500 mg PO Q12HR 10 Days cap Ibuprofen [Motrin] 800 mg PO Q6HR #30 tab Sulfamethox-Tmp 800-160Mg [Bactrim DS 800-160 mg] 1 tab PO Q12HR #20 tab Is patient prescribed a controlled substance at d/c from ED?: No Referrals: Sarah Apple MD [Primary Care Provider] - 1-2 days Time of Disposition: 14:32
[2018-09-09 14:44] VITALS: BP 111/68; PULSE 73; TEMP 98.6
== END 2018-09-09 14:44 | disposition home or self-care (01) ==
LOC: EC 12:30
DX: L02.414 Cutaneous abscess of left upper limb (principal); F17.200 Nicotine dependence, unspecified, uncomplicated; Z79.891 Long term (current) use of opiate analgesic; Z88.1 Allergy status to other antibiotic agents; Z88.8 Allergy status to other drugs, medicaments and biological substances; W00.0XXA Fall on same level due to ice and snow, initial encounter
CPT/HCPCS: 99283

== ENCOUNTER 2018-09-11 11:31 | Inpatient (IN) | payer OTHER ==
[2018-09-11] MEDS ORDERED: KETOROLAC 30 MG/ML 1 ML VIAL IVP STA (12:30)
[2018-09-11] MEDS ORDERED: SODIUM CHLORIDE 0.9% 1,000 ML IV STA (12:30)
[2018-09-11] MEDS ORDERED: LIDOCAINE 1% INJ 10MG/ML (20 ML MDV) SQ STA (12:30)
--- NOTE | 2018-09-11 12:59 | ED ---
General Adult HPI - General Source: patient, RN notes reviewed, old records reviewed Mode of arrival: ambulatory Limitations: no limitations <Colton De Luna - Last Filed: 09/11/18 15:28> <Morro Horvath - Last Filed: 09/11/18 16:05> - General Chief complaint: Skin/Abscess/Foreign Body Stated complaint: lt arm infection - recheck Time Seen by Provider: 09/11/18 12:05 - History of Present Illness Initial comments: Patient 33-year-old male presented to the emergency room today with a chief complaint of an abscess to the left forearm. Patient states that he was here 2 days ago and started on oral antibiotics. Patient states that the pain swelling seems to become worse. He states that a total of 4 doses. Currently taking Bactrim, Keflex. Patient does admit to history of past IV drug use. Denies any other complaints or symptoms. He states this originally started as a small bump was present for a month with nonpainful but became worse 3 days ago when he slipped on the ice falling onto this area. Patient denies any recent shortness of breath, chest pain, back pain, abdominal pain, nausea or vomiting, numbness or tingling, headaches or visual changes, or any other complaints. (Colton De Luna) - Related Data Home Medications Medication Instructions Recorded Confirmed Buprenorphine HCl/Naloxone HCl 1 film SUBLINGUAL TID 07/05/17 09/11/18 [Suboxone 8 mg-2 mg Sl Film] Ibuprofen [Motrin] 800 mg PO TID PRN 09/09/18 09/11/18 Previous Rx's Medication Instructions Recorded Cephalexin [Keflex] 500 mg PO Q12HR 10 Days cap 09/09/18 Sulfamethox-Tmp 800-160Mg [Bactrim 1 tab PO Q12HR #20 tab 09/09/18 DS 800-160 mg] Allergies Allergy/AdvReac Type Severity Reaction Status Date / Time cefepime Allergy Rash/Hives Verified 09/11/18 12:06 prochlorperazine edisylate Allergy SEIZURE Verified 09/11/18 12:06 [From Compazine] prochlorperazine maleate Allergy SEIZURE Verified 09/11/18 12:06 [From Compazine] Review of Systems ROS Other: All systems not noted in ROS Statement are negative. <Colton De Luna - Last Filed: 09/11/18 15:28> ROS Other: All systems not noted in ROS Statement are negative. <Morro Horvath - Last Filed: 09/11/18 16:05> ROS Statement: Those systems with pertinent positive or pertinent negative responses have been documented in the HPI. 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 History of Any Multi-Drug Resistant Organisms: None Reported Past Surgical History: No Surgical Hx Reported Additional Past Surgical History / Comment(s): HAD EAR SURGERY AN INFANT twice. Cystoscopy Past Anesthesia/Blood Transfusion Reactions: No Reported Reaction Past Psychological History: ADD/ADHD, Anxiety Smoking Status: Current every day smoker Past Alcohol Use History: Occasional Past Drug Use History: Heroin, Marijuana - Past Family History Father Additional Family Medical History / Comment(s): FATHER HAS EMPHYSEMA AND STAGE IV LUNG CA. ALSO HAS AN AORTIC ANEURYSM. Mother Family Medical History: Cancer Additional Family Medical History / Comment(s): BREAST CANCER. <Colton De Luna - Last Filed: 09/11/18 15:28> General Exam Limitations: no limitations <Colton De Luna - Last Filed: 09/11/18 15:28> <Morro Horvath - Last Filed: 09/11/18 16:05> - General Exam Comments Initial Comments: General: The patient is awake and alert, in no distress, and does not appear acutely ill. Neck: The neck is supple, there is no tenderness or JVD. Cardiovascular: There is a regular rate and rhythm. No murmur, rub or gallop is appreciated. Respiratory: Lungs are clear to auscultation, respirations are non-labored, breath sounds are equal. No wheezes, stridor, rales, or rhonchi. Musculoskeletal: Normal ROM, no tenderness. Strength 5/5. Sensation intact. Pulses equal bilaterally 2+. Neurological: A&O x 3. CN II-XII intact, There are no obvious motor or sensory deficits. Coordination appears grossly intact. Speech is normal. Skin: Redness to proximal left forearm. It is firm on palpation. Small area of fluctuance is palpated. Tender on Palpation. No lymphangitic streaking. Psychiatric: Cooperative, appropriate mood & affect, normal judgment. (Colton De Luna) Vital Signs 09/11/18 11:44 Temperature 98.7 F Pulse Rate 96 Respiratory 16 Rate Blood Pressure 133/67 O2 Sat by Pulse 100 Oximetry Procedures <Colton De Luna - Last Filed: 09/11/18 15:28> <Morro Horvath - Last Filed: 09/11/18 16:05> - Procedures Initial comment: Procedure: Incision and drainage The skin overlying the abscess was prepped with Betadine, and anesthetized with 1% lidocaine without epinephrine. A #11 scalpel was then used to incise the abscess. Large purulent material was then extracted from the lesion. Wound culture obtained. Gauze dressing placed on top, The patient tolerated the procedure well. (Colton De Luna) Medical Decision Making - Lab Data Result diagrams: 09/11/18 13:35 09/11/18 13:31 <Colton De Luna - Last Filed: 09/11/18 15:28> - Lab Data Result diagrams: 09/11/18 13:35 09/11/18 13:31 <Morro Horvath - Last Filed: 09/11/18 16:05> - Medical Decision Making Case was discussed with Dr. odell, who will admit covering for Dr. Apple I did reevaluate and reexamined patient. Patient does have left forearm swelling. Patient states he is improved following I&D. Patient does have pain however is not out of proportion. No pain with passive range of motion. Patient states he did have some mild paresthesias earlier however that has resolved. No pallor. No paralysis. No pulse. Patient does have radial pulse. Cap refill less than 2 seconds. Case was discussed with Marisol from orthopedics who will evaluate patient. Patient was earlier seen by Dr. odell who did have some concern for possible compartment syndrome. (Morro Horvath) - Lab Data Lab Results 09/11/18 09/11/18 09/11/18 Range/Units 13:31 13:31 13:35 WBC 8.1 (3.8-10.6) k/uL RBC 4.95 (4.30-5.90) m/uL Hgb 13.9 (13.0-17.5) gm/dL Hct 44.0 (39.0-53.0) % MCV 88.8 (80.0-100.0) fL MCH 28.1 (25.0-35.0) pg MCHC 31.7 (31.0-37.0) g/dL RDW 13.1 (11.5-15.5) % Plt Count 243 (150-450) k/uL Neutrophils % 73 % Lymphocytes % 14 % Monocytes % 4 % Eosinophils % 8 % Basophils % 0 % Neutrophils # 6.0 (1.3-7.7) k/uL Lymphocytes # 1.1 (1.0-4.8) k/uL Monocytes # 0.3 (0-1.0) k/uL Eosinophils # 0.6 (0-0.7) k/uL Basophils # 0.0 (0-0.2) k/uL Sodium 138 (137-145) mmol/L Potassium 4.5 (3.5-5.1) mmol/L Chloride 101 (98-107) mmol/L Carbon Dioxide 26 (22-30) mmol/L Anion Gap 11 mmol/L BUN 20 (9-20) mg/dL Creatinine 0.89 (0.66-1.25) mg/dL Est GFR (CKD-EPI)AfAm >90 (>60 ml/min/1.73 sqM) Est GFR (CKD-EPI)NonAf >90 (>60 ml/min/1.73 sqM) Glucose 88 (74-99) mg/dL Plasma Lactic Acid Erik 1.6 (0.7-2.0) mmol/L Calcium 9.3 (8.4-10.2) mg/dL Total Bilirubin 0.2 (0.2-1.3) mg/dL AST 15 L (17-59) U/L ALT 13 L (21-72) U/L Alkaline Phosphatase 99 (38-126) U/L Total Protein 7.7 (6.3-8.2) g/dL Albumin 4.4 (3.5-5.0) g/dL Disposition Is patient prescribed a controlled substance at d/c from ED?: No Time of Disposition: 15:29 <Colton De Luna - Last Filed: 09/11/18 15:28> <Morro Horvath - Last Filed: 09/11/18 16:05> Clinical Impression: Abscess of forearm, left, Failure of outpatient treatment Disposition: ADMITTED IP TO THIS HOSP Condition: Stable
[2018-09-11 13:49] LABS: Basophils % (A) 0 %; Eosinophils # (A) 0.6 k/uL (0-0.7); Eosinophils % (A) 8 %; HGB 13.9 gm/dL (13.0-17.5); Lymphocytes # (A) 1.1 k/uL (1.0-4.8); Lymphocytes % (A) 14 %; MCH 28.1 pg (25.0-35.0); MCHC 31.7 g/dL (31.0-37.0); MCV 88.8 fL (80.0-100.0); Mean Platelet Volume 6.9; Monocytes # (A) 0.3 k/uL (0-1.0); Monocytes % (A) 4 %; Neutrophils % (A) 73 %; Platelet Count 243 k/uL (150-450); RBC 4.95 m/uL (4.30-5.90); RDW 13.1 % (11.5-15.5); WBC 8.1 k/uL (3.8-10.6)
[2018-09-11 14:08] LABS: ALT 13 U/L (21-72); AST 15 U/L (17-59); Albumin 4.4 g/dL (3.5-5.0); Alkaline Phosphatase 99 U/L (38-126); Anion Gap 11 mmol/L; Blood Urea Nitrogen 20 mg/dL (9-20); Calcium 9.3 mg/dL (8.4-10.2); Carbon Dioxide 26 mmol/L (22-30); Chloride 101 mmol/L (98-107); Glucose 88 mg/dL (74-99); Potassium 4.5 mmol/L (3.5-5.1); Sodium 138 mmol/L (137-145); Total Bilirubin 0.2 mg/dL (0.2-1.3); Total Protein 7.7 g/dL (6.3-8.2)
[2018-09-11] MEDS ORDERED: VANCOMYCIN IV PER PHARMACY 1 EACH MISC MISCELLANE PRN ×2 (14:35→16:16)
[2018-09-11] MEDS ORDERED: AMPICILLIN-SULBACTAM 3 GM in SODIUM CHLORIDE 0.9% 100 ML IVPB STA (14:38)
[2018-09-11] MEDS ORDERED: VANCOMYCIN 1,500 MG in SODIUM CHLORIDE 0.9% 250 ML IVPB ONE (15:00)
[2018-09-11] MEDS ORDERED: ONDANSETRON 4 MG/2 ML VIAL IVP PRN (15:29)
[2018-09-11] MEDS ORDERED: SODIUM CHLORIDE 0.9% 1,000 ML IV ONE (15:29)
[2018-09-11] MEDS ORDERED: NALOXONE 0.4 MG/ML 1 ML VIAL IV PRN (15:29)
[2018-09-11] MEDS ORDERED: KETOROLAC 30 MG/ML 1 ML VIAL IVP PRN (15:29)
[2018-09-11] MEDS ORDERED: ACETAMINOPHEN TAB 325 MG TAB PO PRN (15:29)
[2018-09-11] MEDS ORDERED: MORPHINE SULFATE 2 MG/ML SYRINGE IVP PRN (16:18)
--- NOTE | 2018-09-11 16:25 | P.HPIM ---
History of Present Illness This is a pleasant 33 years old male with significant past medical history of asthma, GERD, who presents because of left arm swelling and tenderness, patient had been diagnosed with cellulitis of his left arm which is a started as tender point in the proximal left forearm about one month ago, and he slipped in the office about 3 days ago, after that he started to have swelling, pain and tenderness in his proximal forearm. He came to the emergency room when he got to antibiotics about 2 days ago however his left arm Attending swelling. Today he was complaining of from pain and significant swelling around his elbow joint and the proximal forearm with pain in his shoulder area, also patient was noticed to have difficulty in moving his fingers. Also he has a linear wound on the lateral side of the proximal forearm about 3 inches in length with clear right base and some serosanguineous fluid a training. Patient denies recommended fever however yesterday he was warm and has some chills as per patient. I discussed the case with surgeon special education coordinator, compartment syndrome is of concern. Discussed the case again with the ER attending and with recommendation for emergent orthopedic evaluation for possible compartment syndrome otherwise patient has to be shipped to outside hospital facility where he can be evaluated and treated emergently for possible compartment syndrome of his left forearm. On admission his Vitas looks stable with temperature 98.7, blood pressure 133/67 , heart rate 96. CBC was unremarkable with the WBC 8.1K, BMP was also unremarkable with creatinine 0.89, liver enzymes not elevated. There is no imaging done yet. Patient already got Tylenol, Toradol, Unasyn, intravenous vancomycin, IV fluids boluses and started on normal saline at 100 mm/h. his status post I&D in the emergency room Review of Systems CONSTITUTIONAL: No fever, no malaise, no fatigue. HEENT: No recent visual problems or hearing problems. Denied any sore throat. CARDIOVASCULAR: No orthopnea, PND, no palpitations, no syncope. PULMONARY: No shortness of breath, no cough, no hemoptysis. GASTROINTESTINAL: No diarrhea, no nausea, no vomiting, no abdominal pain. Normoactive bowel sounds. NEUROLOGICAL: No headaches, no weakness, no numbness. HEMATOLOGICAL: Denies any bleeding or petechiae. GENITOURINARY: Denies any burning micturition, frequency, or urgency. MUSCULOSKELETAL/RHEUMATOLOGICAL: Denies any joint pain, swelling, or any muscle pain. ENDOCRINE: Denies any polyuria or polydipsia. Past Medical History Past Medical History: Asthma, GERD/Reflux Additional Past Medical History / Comment(s): Left sternoclavicular joint osteomyelitis, treated at [facility] Pt states had quit heroin for a year Additional hx; lower back pain with arthritis, herniated discs, migraines , seizure with compazine as a child and once while in rehab in 2013. History of Any Multi-Drug Resistant Organisms: None Reported Past Surgical History: No Surgical Hx Reported Additional Past Surgical History / Comment(s): HAD EAR SURGERY AN twice. Cystoscopy Past Anesthesia/Blood Transfusion Reactions: No Reported Reaction Past Psychological History: ADD/ADHD, Anxiety Smoking Status: Current every day smoker Past Alcohol Use History: Occasional Past Drug Use History: Heroin, Marijuana - Past Family History Father Additional Family Medical History / Comment(s): FATHER HAS EMPHYSEMA AND STAGE IV LUNG CA. ALSO HAS AN AORTIC ANEURYSM. Mother Family Medical History: Cancer Additional Family Medical History / Comment(s): BREAST CANCER. Medications and Allergies Home Medications Medication Instructions Recorded Confirmed Type Buprenorphine HCl/Naloxone HCl 1 film SUBLINGUAL TID 07/05/17 09/11/18 History [Suboxone 8 mg-2 mg Sl Film] Cephalexin [Keflex] 500 mg PO Q12HR 10 Days cap 09/09/18 09/11/18 Rx Ibuprofen [Motrin] 800 mg PO TID PRN 09/09/18 09/11/18 History Sulfamethox-Tmp 800-160Mg [Bactrim 1 tab PO Q12HR #20 tab 09/09/18 09/11/18 Rx DS 800-160 mg] Allergies Allergy/AdvReac Type Severity Reaction Status Date / Time cefepime Allergy Rash/Hives Verified 09/11/18 12:06 prochlorperazine edisylate Allergy SEIZURE Verified 09/11/18 12:06 [From Compazine] prochlorperazine maleate Allergy SEIZURE Verified 09/11/18 12:06 [From Compazine] Physical Exam Vitals: Vital Signs Temp Pulse Resp BP Pulse Ox 09/11/18 11:44 98.7 F 96 16 133/67 100 Intake and Output 09/11/18 09/11/18 09/11/18 06:59 14:59 22:59 Other: Weight 79.379 kg GENERAL: The patient is alert and oriented x3, not in any acute distress. Well developed, well nourished. HEENT: Pupils are round and equally reacting to light. EOMI. No scleral icterus. No conjunctival pallor. Normocephalic, atraumatic. No pharyngeal erythema. No thyromegaly. CARDIOVASCULAR: S1 and S2 present. No murmurs, rubs, or gallops. PULMONARY: Chest is clear to auscultation, no wheezing or crackles. ABDOMEN: Soft, nontender, nondistended, normoactive bowel sounds. No palpable organomegaly. MUSCULOSKELETAL: No joint swelling or deformity. -EXTREMITIES: No cyanosis, clubbing, or pedal edema. 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 NEUROLOGICAL: Gross neurological examination did not reveal any focal deficits. SKIN: No rashes. Results CBC & Chem 7: 09/11/18 13:35 09/11/18 13:31 Labs: Abnormal Lab Results - Last 24 Hours (Table) 09/11/18 Range/Units 13:31 AST 15 L (17-59) U/L ALT 13 L (21-72) U/L Assessment and Plan Assessment: Assessment and plan -Left arm swelling and tenderness, needs emergent evaluation for compartment syndrome. Orthopedic team already evaluated the patient, I spoke with Marisol nurse practitioner and they don't think it's compartment syndrome however going to keep a close follow-up with the patient -Possible cellulitis of the left forearm, where, and antibiotics which are already started in the emergency room including unasyn, and vancomycin pharmacy to dose and will call infectious disease for consult and Gen. surgery for possible abscess collection. We will recommend x-ray of the left elbow area as well as venous Doppler to rule out deep venous thrombosis. Sent for wound culture and blood culture as well. Continue with pain management -History of asthma when he was a kid, not an active issue -History of GERD, not in active issue -History of substance abuse on Suboxone, he hasn't taken his Suboxone for 3 days. He was on it for about one year as per patient -DVT prophylaxis: Subcutaneous heparin -GI prophylaxis: Pepcid
[2018-09-11 16:41] VITALS: BMI 25.1
--- NOTE | 2018-09-11 16:44 | XR ---
EXAMINATION TYPE: XR elbow complete LT DATE OF EXAM: 09/11/2018 COMPARISON: NONE HISTORY: Elbow abscess TECHNIQUE: 3 views FINDINGS: There is soft tissue swelling around the elbow. I see no fracture nor dislocation. There is no focal bone destruction. There is no sign of joint effusion. IMPRESSION: Soft tissue swelling. No evidence of osteomyelitis.
--- NOTE | 2018-09-11 16:52 | P.CNOR ---
<Marisol Villalta Odell - Last Filed: 09/11/18 16:52> History of Present Illness - HPI Consult date: 09/11/18 Consult reason: other (Left forearm/elbow abscess and cellulitis) History of present illness: The patient is a 33-year-old male who presented to the emergency department with worsening left arm swelling and tenderness. He states that he's had a tender area on the posterior aspect of his proximal left forearm for almost a month. The patient slipped and fell approximately 3 days ago onto the left forearm and noticed worsening pain and swelling to the left proximal forearm/ elbow. He was seen in the emergency department on 09/09/2017 where x-rays were taken and he was placed on Keflex and Bactrim. The wound on his posterior forearm has continued to worsen and now has limited ROM of the the elbow due to pain. He denies fever, chills, rigors, shortness of breath, chest pain, abdominal pain today. He did however have chills yesterday. The patient states that he does have a history of osteomyelitis of his clavicle which was removed and he was on IV antibiotics in the form of vancomycin and cefepime in the past. Dr. Hoffman has followed the patient for that infection. The patient has had a history of IV drug use in the past but is currently on Suboxone for the past year. He denies any current use of IV drugs. Orthopedics was consulted for further evaluation and to rule out compartment syndrome. Review of Systems Constitutional: Reports chills, Denies fever Cardiovascular: Denies chest pain, Denies shortness of breath Respiratory: Denies cough Gastrointestinal: Denies diarrhea, Denies nausea, Denies vomiting Musculoskeletal: left: elbow pain, elbow stiffness, elbow swelling Integumentary: Reports wounds (Left proximal forearm) Past Medical History Past Medical History: Asthma, GERD/Reflux, Seizure Disorder Additional Past Medical History / Comment(s): Left sternoclavicular joint osteomyelitis, treated at [facility] Pt states had quit heroin since 2016. lower back pain with arthritis, herniated discs, migraines , seizure with compazine as a child and once while in rehab in 2013.last seizure 5 -6 months ago, adhd/anxiety, [place] lt ear(past perforated eardrum History of Any Multi-Drug Resistant Organisms: None Reported Past Surgical History: No Surgical Hx Reported Additional Past Surgical History / Comment(s): HAD EAR SURGERY AN INFANT twice. Cystoscopy Past Anesthesia/Blood Transfusion Reactions: No Reported Reaction Smoking Status: Current every day smoker - Past Family History Father Family Medical History: Cancer Additional Family Medical History / Comment(s): FATHER HAd EMPHYSEMA AND STAGE IV LUNG CA. ALSO HAS AN AORTIC ANEURYSM. recently . Mother Family Medical History: Cancer Additional Family Medical History / Comment(s): BREAST CANCER. Medications and Allergies Home Medications Medication Instructions Recorded Confirmed Type Buprenorphine HCl/Naloxone HCl 1 film SUBLINGUAL TID 07/05/17 09/11/18 History [Suboxone 8 mg-2 mg Sl Film] Cephalexin [Keflex] 500 mg PO Q12HR 10 Days cap 09/09/18 09/11/18 Rx Ibuprofen [Motrin] 800 mg PO TID PRN 09/09/18 09/11/18 History Sulfamethox-Tmp 800-160Mg [Bactrim 1 tab PO Q12HR #20 tab 09/09/18 09/11/18 Rx DS 800-160 mg] Allergies Allergy/AdvReac Type Severity Reaction Status Date / Time cefepime Allergy Rash/Hives Verified 09/11/18 12:06 prochlorperazine edisylate Allergy SEIZURE Verified 09/11/18 12:06 [From Compazine] prochlorperazine maleate Allergy SEIZURE Verified 09/11/18 12:06 [From Compazine] Physical Examination The patient is a 33-year-old male who is in no acute distress. He is alert and oriented 3. Exam of the left upper extremity reveals a approximate 3cm wound to the posterior aspect of the proximal left forearm which was opened up by the emergency department . No obvious purulent drainage noted. There is moderate swelling to the posterior aspect of the left forearm and elbow. No obvious abscess seen at this time. Mild erythema present to the area without proximal red streaking. No significant pain on passive range of motion of the elbow, wrists, and fingers. There is limited active range of motion of the left shoulder due to previous clavicle excision and limited active range of motion of the left elbow due to pain and guarding. No signs of compartment syndrome present. Neurological status is normal. Patient is able to feel light touch to the volar and dorsal aspects of the forearm, hand, and fingers. Radial pulses strong and capillary refill is less than 2 seconds. Results X-rays of the left forearm dated 09/09/2018 reveal no signs of osteomyelitis. Soft tissue swelling present. There are 4 small metallic foreign bodies within the antecubital fossa that are old. - Labs Labs: Abnormal Lab Results - Last 24 Hours (Table) 09/11/18 Range/Units 13:31 AST 15 L (17-59) U/L ALT 13 L (21-72) U/L H & H 09/11/18 Range/Units 13:35 Hgb 13.9 (13.0-17.5) gm/dL Hct 44.0 (39.0-53.0) % Result Diagrams: 09/11/18 13:35 09/11/18 13:31 Assessment and Plan (1) Abscess of forearm, left Current Visit: Yes Status: Acute Code(s): L02.414 - CUTANEOUS ABSCESS OF LEFT UPPER LIMB SNOMED Code(s): 79402691 (2) Failure of outpatient treatment Current Visit: Yes Status: Acute Code(s): Z78.9 - OTHER SPECIFIED HEALTH STATUS SNOMED Code(s): 269355308 Plan: The clinical and x-ray findings were discussed with the patient. The case was also discussed with Dr. Metcalf, Dr. Horvath, and Dr. Lindo. We recommend admission, IV antibiotics, local wound care, and infectious disease consultation. We will continue to follow the patient closely. If he fails to improve on IV antibiotics for the next 24-48 hours, further imaging or surgical intervention may be needed. <Thong Metcalf - Last Filed: 09/11/18 21:07> Results - Labs Labs: Abnormal Lab Results - Last 24 Hours (Table) 09/11/18 Range/Units 13:31 AST 15 L (17-59) U/L ALT 13 L (21-72) U/L Microbiology - Last 24 Hours (Table) 09/11/18 14:30 Wound Culture - Preliminary Arm - Left H & H 09/11/18 Range/Units 13:35 Hgb 13.9 (13.0-17.5) gm/dL Hct 44.0 (39.0-53.0) % Result Diagrams: 09/11/18 13:35 09/11/18 13:31 Assessment and Plan Plan: Reviewed and agree with above findings. Patient was also seen and examined later by me Pt states that he fell on the ice 3 days ago and developed gradually increasing swelling and pain around the elbow. Pain became quite intense and did not seem to be responding to antibiotics. Reports significant improvement since bedside I&D today. Still reports wrist and digital ROM inhibited by pain but moving easier. States he's been clean from IV drugs for over 10 months. Currently smoking about 1 PPD. Of note, his father recently from lung CA and patient says he's going to try to quit. Exam: Open surgical wound on proximal volar forearm, ~2-3cm with mild serosanguinous drainage. No gross purulence. Not malodorous. Mild surrounding edema (pt states has improved). Mild-moderate TTP. Surrounding soft tissues edematous and somewhat indurated. No subcutaneous crepitus. No focal subcu fluid collection appreciated. Able to perform mid-range active digital/wrist flexion and extension with only mild discomfort. Pain is increased at the extremes of motion, particularly with extension. Minimal pain with passive motion until extending wrist beyond 20 degrees of extension or digital hyperextension. Pain level appropriate for appearance of forearm. Impression: Pain & swelling of left proximal forearm - likely superficial abscess with surrounding cellulitis Differential also includes intramuscular hematoma and deep abscess No concern for compartment syndrome at this time. Plan: Recommend continued observation to evaluate clinical response to initial I&D/ decompression. Agree with IV antibiotics and ID eval. Encourage pt to continue AROM/PROM of fingers, hand, wrist and elbow. We will continue to monitor closely. Thong Metcalf D.O.
--- NOTE | 2018-09-11 18:01 | P.GSCN ---
History of Present Illness Consult date: 09/11/18 History of present illness: The patient is a 33-year-old male who presented to the emergency department with worsening left arm swelling and tenderness. The patient states that he fell approximately 3 days ago and was seen in the emergency department at that time. He was diagnosed with cellulitis and given antibiotics. He states that since that time, the swelling has increased and has become more painful. He also complained of his left hand turning bluish tint along with some paresthesias. He states that in the emergency department, an incision and drainage was performed and since that time he no longer feels that pressure and is feeling much better. He currently denies any paresthesias. He does state that he has some limited range of motion of the left elbow due to pain. He denies any fevers, chills, chest pain, shortness of breath. He is noted to have a history of ostium mellitus of his clavicle. He denies any current IV drug abuse, but does have a history of IV drug abuse. He states that during the incision and drainage in the emergency department that a small amount of brownish fluid was removed and the rest was bloody output. Review of Systems All systems: negative Past Medical History Past Medical History: Asthma, GERD/Reflux, Seizure Disorder Additional Past Medical History / Comment(s): Left sternoclavicular joint osteomyelitis, treated at [facility] Pt states had quit heroin since 2016. lower back pain with arthritis, herniated discs, migraines , seizure with compazine as a child and once while in rehab in 2013.last seizure 5 -6 months ago, adhd/anxiety, [place] [employer] [place] lt ear(past perforated eardrum History of Any Multi-Drug Resistant Organisms: None Reported Past Surgical History: No Surgical Hx Reported Additional Past Surgical History / Comment(s): HAD EAR SURGERY AN twice. Cystoscopy Past Anesthesia/Blood Transfusion Reactions: No Reported Reaction Smoking Status: Current every day smoker - Past Family History Father Family Medical History: Cancer Additional Family Medical History / Comment(s): FATHER HAd EMPHYSEMA AND STAGE IV LUNG CA. ALSO HAS AN AORTIC ANEURYSM. recently . Mother Family Medical History: Cancer Additional Family Medical History / Comment(s): BREAST CANCER. Medications and Allergies Home Medications Medication Instructions Recorded Confirmed Type Buprenorphine HCl/Naloxone HCl 1 film SUBLINGUAL TID 07/05/17 09/11/18 History [Suboxone 8 mg-2 mg Sl Film] Cephalexin [Keflex] 500 mg PO Q12HR 10 Days cap 09/09/18 09/11/18 Rx Ibuprofen [Motrin] 800 mg PO TID PRN 09/09/18 09/11/18 History Sulfamethox-Tmp 800-160Mg [Bactrim 1 tab PO Q12HR #20 tab 09/09/18 09/11/18 Rx DS 800-160 mg] Allergies Allergy/AdvReac Type Severity Reaction Status Date / Time cefepime Allergy Rash/Hives Verified 09/11/18 12:06 prochlorperazine edisylate Allergy SEIZURE Verified 09/11/18 12:06 [From Compazine] prochlorperazine maleate Allergy SEIZURE Verified 09/11/18 12:06 [From Compazine] Surgical - Exam Osteopathic Statement: *. No significant issues noted on an osteopathic structural exam other than those noted in the History and Physical/Consult. Vital Signs Temp Pulse Resp BP Pulse Ox 98.7 F 96 16 133/67 100 09/11/18 11:44 09/11/18 11:44 09/11/18 11:44 09/11/18 11:44 09/11/18 11:44 - General well nourished, no distress - Neck trachea midline - Respiratory No difficulty with respiration - Abdomen Soft, nontender, nondistended, no rebound, no guarding - Musculoskeletal Left upper extremity with notable edema around the elbow, incision and drainage site is noted to have serosanguineous output at this time, no significant cellulitic changes of the skin, operable induration with no palpable fluctuance Results - Labs 09/11/18 13:35 09/11/18 13:31 Abnormal Lab Results - Last 24 Hours (Table) 09/11/18 Range/Units 13:31 AST 15 L (17-59) U/L ALT 13 L (21-72) U/L Diabetes panel 09/11/18 Range/Units 13:31 Sodium 138 (137-145) mmol/L Potassium 4.5 (3.5-5.1) mmol/L Chloride 101 (98-107) mmol/L Carbon Dioxide 26 (22-30) mmol/L BUN 20 (9-20) mg/dL Creatinine 0.89 (0.66-1.25) mg/dL Glucose 88 (74-99) mg/dL Calcium 9.3 (8.4-10.2) mg/dL AST 15 L (17-59) U/L ALT 13 L (21-72) U/L Alkaline Phosphatase 99 (38-126) U/L Total Protein 7.7 (6.3-8.2) g/dL Albumin 4.4 (3.5-5.0) g/dL Calcium panel 09/11/18 Range/Units 13:31 Calcium 9.3 (8.4-10.2) mg/dL Albumin 4.4 (3.5-5.0) g/dL Pituitary panel 09/11/18 Range/Units 13:31 Sodium 138 (137-145) mmol/L Potassium 4.5 (3.5-5.1) mmol/L Chloride 101 (98-107) mmol/L Carbon Dioxide 26 (22-30) mmol/L BUN 20 (9-20) mg/dL Creatinine 0.89 (0.66-1.25) mg/dL Glucose 88 (74-99) mg/dL Calcium 9.3 (8.4-10.2) mg/dL Adrenal panel 09/11/18 Range/Units 13:31 Sodium 138 (137-145) mmol/L Potassium 4.5 (3.5-5.1) mmol/L Chloride 101 (98-107) mmol/L Carbon Dioxide 26 (22-30) mmol/L BUN 20 (9-20) mg/dL Creatinine 0.89 (0.66-1.25) mg/dL Glucose 88 (74-99) mg/dL Calcium 9.3 (8.4-10.2) mg/dL Total Bilirubin 0.2 (0.2-1.3) mg/dL AST 15 L (17-59) U/L ALT 13 L (21-72) U/L Alkaline Phosphatase 99 (38-126) U/L Total Protein 7.7 (6.3-8.2) g/dL Albumin 4.4 (3.5-5.0) g/dL Assessment and Plan Plan: 33-year-old male with hematoma versus abscess of left upper extremity - Patient is to undergo an ultrasound of the left forearm to evaluate for any fluid collection. I will follow-up on this study. The patient has also been evaluated by orthopedic surgery for any possible compartment syndrome. I do recommend continuing antibiotics for now and await infectious disease evaluation. I will continue to follow the patient closely and continue to provide recommendations and discuss with orthopedics if any surgical intervention is necessary.
--- NOTE | 2018-09-11 21:00 | US ---
EXAMINATION TYPE: US venous doppler duplex UE LT DATE OF EXAM: 09/11/2018 COMPARISON: NONE CLINICAL HISTORY: forarm swelling , r/o DVT. Forearm swelling feel on the ice. SIDE PERFORMED: Left Left Arm: Negative for DVT No evidence of DVT left arm. IMPRESSION: No sign of deep venous thrombosis in the left arm.
[2018-09-11] MEDS: FAMOTIDINE 20 MG/2 ML VIAL IV SCH (21:01)
[2018-09-11] MEDS: HEPARIN SODIUM,PORCINE 5,000 UNIT/ML 1 ML VIAL SQ SCH (21:01)
--- NOTE | 2018-09-11 21:02 | US ---
EXAMINATION TYPE: US extremity nonvasc complt LT DATE OF EXAM: 09/11/2018 COMPARISON: NONE CLINICAL HISTORY: forarm swelling . Left forearm swelling feel on the ice. Patient had fluid drained out of area today. No fluid visualized at area around drainage site. IMPRESSION: No solid or cystic mass identified in the area of concern on the left forearm lump lynne n.
[2018-09-11] MEDS: SODIUM CHLORIDE 0.9% 1,000 ML IV SCH (23:09)
[2018-09-11] MEDS: AMPICILLIN-SULBACTAM 3 GM in SODIUM CHLORIDE 0.9% 100 ML IVPB SCH (23:22)
[2018-09-12] MEDS ORDERED: VANCOMYCIN 1,500 MG in SODIUM CHLORIDE 0.9% 250 ML IVPB SCH ×2
[2018-09-12] MEDS: AMPICILLIN-SULBACTAM 3 GM in SODIUM CHLORIDE 0.9% 100 ML IVPB SCH ×2 (05:39→12:14)
[2018-09-12 07:44] LABS: ALT 24 U/L (21-72); AST 16 U/L (17-59); Albumin 3.5 g/dL (3.5-5.0); Alkaline Phosphatase 90 U/L (38-126); Anion Gap 2 mmol/L; Blood Urea Nitrogen 15 mg/dL (9-20); Calcium 9.2 mg/dL (8.4-10.2); Carbon Dioxide 26 mmol/L (22-30); Chloride 110 mmol/L (98-107); Glucose 102 mg/dL (74-99); Potassium 4.9 mmol/L (3.5-5.1); Sodium 138 mmol/L (137-145); Total Bilirubin 0.4 mg/dL (0.2-1.3); Total Protein 6.5 g/dL (6.3-8.2)
--- NOTE | 2018-09-12 07:47 | P.PN ---
Subjective Progress Note Date: 09/12/18 Patient seen and examined at bedside. States she is feeling much better today. He feels less pressure in his left upper extremity. Ultrasound was completed yesterday that did not show a drainable fluid collection. Objective - Vital Signs Vital signs: Vital Signs Temp 98.2 F 09/11/18 23:45 Pulse 61 09/12/18 04:00 Resp 16 09/12/18 04:00 BP 114/60 09/11/18 23:45 Pulse Ox 97 09/11/18 23:45 Intake & Output 09/11/18 09/12/18 09/12/18 18:59 06:59 18:59 Intake Total 200 Balance 200 Weight 79.379 kg Intake: Oral 200 Other: # Voids 2 - Constitutional General appearance: Present: cooperative, no acute distress - Respiratory Details: No difficulty with respiration - Gastrointestinal Gastrointestinal Comment(s): Soft, nontender, nondistended, no rebound, no guarding - Musculoskeletal Musculoskeletal Comment(s): Left upper extremity with appropriate motor function, indurated area has slightly decreased and is softer to the touch, no obvious erythema or cellulitic skin changes - Labs CBC & Chem 7: 09/11/18 13:35 09/12/18 06:28 Labs: Abnormal Lab Results - Last 24 Hours (Table) 09/11/18 09/12/18 Range/Units 13:31 06:28 Chloride 110 H (98-107) mmol/L Glucose 102 H (74-99) mg/dL AST 15 L 16 L (17-59) U/L ALT 13 L (21-72) U/L Microbiology - Last 24 Hours (Table) 09/11/18 14:30 Gram Stain - Preliminary Arm - Left Wound Culture - Preliminary Assessment and Plan Plan: 33-year-old male with hematoma versus abscess of left upper extremity - Ultrasound was reviewed with no obvious drainable fluid collection - Patient's symptoms continue to improve - I did recommend elevation of the patient's arm - ID recommendations - No plan for surgical intervention at this time with no drainable fluid collection
[2018-09-12] MEDS: FAMOTIDINE 20 MG/2 ML VIAL IV SCH (08:16)
[2018-09-12] MEDS: HEPARIN SODIUM,PORCINE 5,000 UNIT/ML 1 ML VIAL SQ SCH ×2 (08:17→22:00)
[2018-09-12 09:15] LABS: Basophils % (A) 0 %; Eosinophils # (A) 0.7 k/uL (0-0.7); Eosinophils % (A) 10 %; HCT 41.5 % (39.0-53.0); HGB 13.9 gm/dL (13.0-17.5); Lymphocytes # (A) 1.1 k/uL (1.0-4.8); Lymphocytes % (A) 15 %; MCH 28.9 pg (25.0-35.0); MCHC 33.5 g/dL (31.0-37.0); MCV 86.4 fL (80.0-100.0); Mean Platelet Volume 7.6; Monocytes # (A) 0.4 k/uL (0-1.0); Monocytes % (A) 5 %; Neutrophils # (A) 4.9 k/uL (1.3-7.7); Neutrophils % (A) 68 %; Platelet Count 307 k/uL (150-450); RBC 4.81 m/uL (4.30-5.90); RDW 12.8 % (11.5-15.5); WBC 7.1 k/uL (3.8-10.6)
[2018-09-12] MEDS: VANCOMYCIN 1,500 MG in SODIUM CHLORIDE 0.9% 250 ML IVPB SCH ×2 (14:20→21:58)
--- NOTE | 2018-09-12 14:33 | P.PN ---
Subjective This is a pleasant 33 years old male with significant past medical history of asthma, GERD, who presents because of left arm swelling and tenderness, patient had been diagnosed with cellulitis of his left arm which is a started as tender point in the proximal left forearm about one month ago, and he slipped in the office about 3 days ago, after that he started to have swelling, pain and tenderness in his proximal forearm. He came to the emergency room when he got to antibiotics about 2 days ago however his left arm Attending swelling. Today he was complaining of from pain and significant swelling around his elbow joint and the proximal forearm with pain in his shoulder area, also patient was noticed to have difficulty in moving his fingers. Also he has a linear wound on the lateral side of the proximal forearm about 3 inches in length with clear right base and some serosanguineous fluid a training. Patient denies recommended fever however yesterday he was warm and has some chills as per patient. I discussed the case with surgeon soa integration developer, compartment syndrome is of concern. Discussed the case again with the ER attending and with recommendation for emergent orthopedic evaluation for possible compartment syndrome otherwise patient has to be shipped to outside hospital facility where he can be evaluated and treated emergently for possible compartment syndrome of his left forearm. On admission his Vitas looks stable with temperature 98.7, blood pressure 133/67 , heart rate 96. CBC was unremarkable with the WBC 8.1K, BMP was also unremarkable with creatinine 0.89, liver enzymes not elevated. There is no imaging done yet. Patient already got Tylenol, Toradol, Unasyn, intravenous vancomycin, IV fluids boluses and started on normal saline at 100 mm/h. his status post I&D in the emergency room 09/12/2018 Patient is doing better, with this a swelling in his proximal left forearm, less tenderness and he has better hand belt puncher and he can flex and extend his elbow more freely patient is happy with this progress. X-ray and ultrasound resulted in show significant lesions or abscesses needs to be drained. Surgical evaluation is appreciated and his impression is the same. Culture came back positive for MRSA. Discontinue Unasyn continue with vancomycin pending final recommendation by infectious disease team. No fever, no leukocytosis. Creatinine is stable at 0.8. Liver enzymes not elevated. Objective - Vital Signs Vital signs: Vital Signs Temp 98.2 F 09/12/18 08:00 Pulse 86 09/12/18 08:00 Resp 16 09/12/18 08:00 BP 135/70 09/12/18 08:00 Pulse Ox 98 09/12/18 08:00 Intake & Output 09/11/18 09/12/18 09/12/18 18:59 06:59 18:59 Intake Total 200 Balance 200 Weight 79.379 kg Intake: Oral 200 Other: # Voids 2 - Exam GENERAL: The patient is alert and oriented x3, not in any acute distress. Well developed, well nourished. HEENT: Pupils are round and equally reacting to light. EOMI. No scleral icterus. No conjunctival pallor. Normocephalic, atraumatic. No pharyngeal erythema. No thyromegaly. CARDIOVASCULAR: S1 and S2 present. No murmurs, rubs, or gallops. PULMONARY: Chest is clear to auscultation, no wheezing or crackles. ABDOMEN: Soft, nontender, nondistended, normoactive bowel sounds. No palpable organomegaly. MUSCULOSKELETAL: No joint swelling or deformity. -EXTREMITIES: No cyanosis, clubbing, or pedal edema. Left forearm is a swollen, tender and tense with linear wings about 3 inches in length and 2 mm in diameter serosanguineous fluid draining, patient has weakness in his fingers with weaker belt puncher. Improving NEUROLOGICAL: Gross neurological examination did not reveal any focal deficits. SKIN: No rashes. - Labs CBC & Chem 7: 09/12/18 06:28 09/12/18 06:28 Labs: Abnormal Lab Results - Last 24 Hours (Table) 09/12/18 Range/Units 06:28 Chloride 110 H (98-107) mmol/L Glucose 102 H (74-99) mg/dL AST 16 L (17-59) U/L Microbiology - Last 24 Hours (Table) 09/11/18 14:30 Gram Stain - Preliminary Arm - Left Wound Culture - Preliminary Presumptive MRSA Assessment and Plan Assessment: Assessment and plan -Left arm swelling and tenderness, mostly secondary to MRSA cellulitis and soft tissue infection , on vancomycin , ID team are on consult. no need for surgical intervention , c/w pain management and iv fluids -History of asthma when he was a kid, not an active issue -History of GERD, not in active issue -History of substance abuse on Suboxone, he hasn't taken his Suboxone for 3 days. He was on it for about one year as per patient -DVT prophylaxis: Subcutaneous heparin -GI prophylaxis: Pepcid Plan: Labs and medication were reviewed.. Continue same treatment. Continue with symptomatic treatment. Resume home medication. Monitor lytes and vitals. DVT and GI prophylaxis. Further recommendations of the clinical course of the patient DVT prophylaxis: Subcutaneous heparin GI Prophylaxis: Pepcid PT/OT: Pending Prognosis is guarded
[2018-09-12] MEDS: BUTALB/APAP/CAFF 50-325-40MG TAB PO PRN (18:24)
--- NOTE | 2018-09-12 19:52 | P.PN ---
Progress Note - Text Progress Note Date: 09/12/18 Ortho Progress Note S: Pt states the pain is "100% better." Feels swelling has improved. Able move it easier. O: Erythema regressed. Dressing recently changed - no strike through. Induration and edema improved. Much less tenderness to palpation. A: Left forearm abscess/cellulitis. P: Do not anticipate any need for surgical intervention. Recommend cont'd abx per primary/ID. Will sign off for now. Pt does not need to follow up with ortho. Please call/reconsult if new issues or questions arise. Thong Metcalf D.O.
[2018-09-12] MEDS: NON-FORMULARY DRUG (Buprenorphine Hcl/Naloxone Hcl [Suboxone 8 Mg-2 Mg Sl Film] 1 FILM) SUBLINGUAL SCH ×2 (20:02→20:03)
[2018-09-12] MEDS: FAMOTIDINE 20 MG TAB PO SCH (22:00)
[2018-09-12] MEDS: MELATONIN 5 MG TABLET PO SCH (22:21)
[2018-09-13] MEDS ORDERED: VANCOMYCIN TROUGH DUE 1 EACH MISC MISCELLANE ONE (05:00)
[2018-09-13] MEDS: SODIUM CHLORIDE 0.9% 1,000 ML IV SCH ×3 (06:17→14:06)
[2018-09-13 06:50] LABS: Anion Gap 6 mmol/L; Blood Urea Nitrogen 18 mg/dL (9-20); Calcium 9.4 mg/dL (8.4-10.2); Carbon Dioxide 24 mmol/L (22-30); Chloride 112 mmol/L (98-107); Glucose 104 mg/dL (74-99); Potassium 5.3 mmol/L (3.5-5.1); Sodium 142 mmol/L (137-145)
[2018-09-13] MEDS: VANCOMYCIN 1,500 MG in SODIUM CHLORIDE 0.9% 250 ML IVPB SCH ×3 (06:54→21:17)
--- NOTE | 2018-09-13 07:55 | CONS ---
CONSULTATION DATE OF SERVICE: 09/12/2018. REASON FOR CONSULTATION: Left forearm abscess and cellulitis, antibiotic recommendation. 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 However, the patient said he has been cleaned off IV drugs for more than 2 years now. The patient recently did fell on the ice with significant laceration to his left elbow area. The patient was seen in the ER after his fall and was diagnosed with cellulitis of the left elbow area and was treated with oral Bactrim and Keflex. However over the next 3 days, the patient had left elbow area becoming more painful. Pain described to be pressure-like normal 7 to 8 out of 10, with no radiation with significant swelling and redness and pain, but denies any high-grade fever. With these symptoms, the patient presented back to the [facility] ER yesterday afternoon and the patient was evaluated by the ER physician. The patient did have I and D of this area with drainage of that has been cultured. The patient was started on Unasyn and vancomycin. Infectious disease was consulted for further recommendation regarding antibiotic therapy. The patient subsequently did have an ultrasound of the area which was negative for any fluid collection. The patient did mention that after the areas was opened up, he did have some continuous blood-stained fluid draining out. However, none has drained since morning. The patient overall pressure and pain has decreased as well. The patient denies having any chest pain. No shortness of breath or cough. No abdominal pain and no diarrhea. REVIEW OF SYSTEMS: Positive points have been mentioned in HPI, the rest of the review of systems has been negative. PAST MEDICAL HISTORY: Asthma, gastroesophageal reflux disease, left distal clavicle osteomyelitis with MRSA with chronic back pain , seizure disorder. PAST SURGICAL HISTORY: Cystoscopy, PICC line placement and subsequent removal. SOCIAL HISTORY: Current everyday smoker. The patient did admit to marijuana use. No IV drug use. FAMILY HISTORY: Father history of emphysema, stage IV lung cancer. Mother history of breast cancer. ALLERGIES: TO CEFEPIME, CHLORPROMAZINE. MEDICATIONS: Medication include the patient is currently on Unasyn 3 g every 6 hours, Tylenol, Fioricet, Pepcid, heparin, Melatonin, vancomycin 1500 mg q.8 hours, Zofran and Narcan. PHYSICAL EXAMINATION: Blood pressure 123/72 with a pulse of 74, temperature 97.5. He is 100% on room air. General description is a middle-aged male lying in bed in no distress. No tachypnea or accessory muscles of respiration use. HEENT: Shows no pallor or scleral icterus. Oral mucosa membranes are dry. No pharyngeal erythema or thrush. Neck: Trachea central. No thyromegaly. Lungs unlabored breathing. Clear to auscultation anteriorly. No wheeze or crackles. Heart S1, S2. Regular rate and rhythm. Abdomen: Soft, no tenderness. No guarding. No organomegaly. Extremities: No edema of the feet. Skin examination: No rash or mass palpable. Examination of left arm did shows some areas of slightly swelling but no redness was noticed. No fluctuation induration or any drainage. Neurological: Patient is awake, alert, oriented times three. Mood and affect normal. LABS: Hemoglobin is 13.2, white count 7.8 with a BUN of 18, creatinine 0.86. Blood culture has been negative so far. Local culture presumptive MRSA. DIAGNOSTIC IMPRESSION AND PLAN: Patient with left forearm abscess in this patient who did have recent scratching after fall on the ice could have been for possible infected hematoma. workup did not show any evidence of any fracture and the ultrasound was negative for any evidence of fluid collection post drainage of this abscess or infected hematoma by the ER physician, culture with presumptive MRSA likely infected pathogen. PLAN: 1. Vancomycin pharmacy to dose, target of 15 while watching his kidney function and closely. 2. Discontinue Unasyn. 3. Recommend keeping the patient on IV vancomycin for at least 24-48 hours, depending on the clinical response, and if the organism is sensitive with oral antibiotics. No need for a PICC line for outpatient antibiotic therapy. Thank you for this consultation. We will follow this patient along with you. MMODL / IJN: [id number] /
[2018-09-13] MEDS: HEPARIN SODIUM,PORCINE 5,000 UNIT/ML 1 ML VIAL SQ SCH ×2 (08:30→21:16)
[2018-09-13] MEDS: BUTALB/APAP/CAFF 50-325-40MG TAB PO PRN (08:31)
[2018-09-13] MEDS: FAMOTIDINE 20 MG TAB PO SCH ×2 (08:31→21:17)
[2018-09-13] MEDS: NON-FORMULARY DRUG (Buprenorphine Hcl/Naloxone Hcl [Suboxone 8 Mg-2 Mg Sl Film] 1 FILM) SUBLINGUAL SCH ×3 (08:45→22:33)
--- NOTE | 2018-09-13 09:16 | P.PN ---
Subjective This is a pleasant 33 years old male with significant past medical history of asthma, GERD, who presents because of left arm swelling and tenderness, patient had been diagnosed with cellulitis of his left arm which is a started as tender point in the proximal left forearm about one month ago, and he slipped in the office about 3 days ago, after that he started to have swelling, pain and tenderness in his proximal forearm. He came to the emergency room when he got to antibiotics about 2 days ago however his left arm Attending swelling. Today he was complaining of from pain and significant swelling around his elbow joint and the proximal forearm with pain in his shoulder area, also patient was noticed to have difficulty in moving his fingers. Also he has a linear wound on the lateral side of the proximal forearm about 3 inches in length with clear right base and some serosanguineous fluid a training. Patient denies recommended fever however yesterday he was warm and has some chills as per patient. I discussed the case with surgeon student liaison officer, compartment syndrome is of concern. Discussed the case again with the ER attending and with recommendation for emergent orthopedic evaluation for possible compartment syndrome otherwise patient has to be shipped to outside hospital facility where he can be evaluated and treated emergently for possible compartment syndrome of his left forearm. On admission his Vitas looks stable with temperature 98.7, blood pressure 133/67 , heart rate 96. CBC was unremarkable with the WBC 8.1K, BMP was also unremarkable with creatinine 0.89, liver enzymes not elevated. There is no imaging done yet. Patient already got Tylenol, Toradol, Unasyn, intravenous vancomycin, IV fluids boluses and started on normal saline at 100 mm/h. his status post I&D in the emergency room 09/12/2018 Patient is doing better, with this a swelling in his proximal left forearm, less tenderness and he has better hand resource room special education teacher and he can flex and extend his elbow more freely patient is happy with this progress. X-ray and ultrasound resulted in show significant lesions or abscesses needs to be drained. Surgical evaluation is appreciated and his impression is the same. Culture came back positive for MRSA. Discontinue Unasyn continue with vancomycin pending final recommendation by infectious disease team. No fever, no leukocytosis. Creatinine is stable at 0.8. Liver enzymes not elevated. 09/13/2018 patient continued to improve with less swelling and pain in his left proximal forearm, he has strong resource room special education teacher today. Patient continue on IV vancomycin. Vitals and labs are within normal son stable including creatinine which is 0.79. Infectious disease input is appreciated, there comment to continue with IV vancomycin for 24-48 hours, and follow-up the sensitivity to see the need for intravenous or oral antibiotics on discharge. Objective - Vital Signs Vital signs: Vital Signs Temp 98.3 F 09/13/18 08:00 Pulse 87 09/13/18 08:00 Resp 16 09/13/18 08:00 BP 147/69 09/13/18 08:00 Pulse Ox 100 09/13/18 08:00 Intake & Output 09/12/18 09/13/18 09/13/18 18:59 06:59 18:59 Other: # Voids 1 1 - Exam GENERAL: The patient is alert and oriented x3, not in any acute distress. Well developed, well nourished. HEENT: Pupils are round and equally reacting to light. EOMI. No scleral icterus. No conjunctival pallor. Normocephalic, atraumatic. No pharyngeal erythema. No thyromegaly. CARDIOVASCULAR: S1 and S2 present. No murmurs, rubs, or gallops. PULMONARY: Chest is clear to auscultation, no wheezing or crackles. ABDOMEN: Soft, nontender, nondistended, normoactive bowel sounds. No palpable organomegaly. MUSCULOSKELETAL: No joint swelling or deformity. -EXTREMITIES: No cyanosis, clubbing, or pedal edema. Left forearm is a swollen, tender and tense with linear wings about 3 inches in length and 2 mm in diameter serosanguineous fluid draining, patient has weakness in his fingers with weaker resource room special education teacher. Improving NEUROLOGICAL: Gross neurological examination did not reveal any focal deficits. SKIN: No rashes. - Labs CBC & Chem 7: 09/12/18 06:28 09/13/18 05:59 Labs: Abnormal Lab Results - Last 24 Hours (Table) 09/13/18 Range/Units 05:59 Potassium 5.3 H (3.5-5.1) mmol/L Chloride 112 H (98-107) mmol/L Glucose 104 H (74-99) mg/dL Microbiology - Last 24 Hours (Table) 09/11/18 13:35 Blood Culture - Preliminary Blood No Growth after 24 hours 09/11/18 14:30 Gram Stain - Preliminary Arm - Left Wound Culture - Preliminary Presumptive MRSA Assessment and Plan Assessment: Assessment and plan -Left arm swelling and tenderness, mostly secondary to MRSA cellulitis and soft tissue infection , on vancomycin , ID team are on consult. no need for surgical intervention , c/w pain management and iv fluids -History of asthma when he was a kid, not an active issue -History of GERD, not in active issue -History of substance abuse on Suboxone, he hasn't taken his Suboxone for 3 days. He was on it for about one year as per patient -DVT prophylaxis: Subcutaneous heparin -GI prophylaxis: Pepcid Plan: Labs and medication were reviewed.. Continue same treatment. Continue with symptomatic treatment. Resume home medication. Monitor lytes and vitals. DVT and GI prophylaxis. Further recommendations of the clinical course of the patient DVT prophylaxis: Subcutaneous heparin GI Prophylaxis: Pepcid PT/OT: Pending Prognosis is guarded
--- NOTE | 2018-09-13 13:32 | P.PN ---
Subjective Progress Note Date: 09/13/18 Patient doing much better today good strength improved per patient. Swelling is significantly improved. Objective - Vital Signs Vital signs: Vital Signs Temp 98.3 F 09/13/18 08:00 Pulse 87 09/13/18 12:00 Resp 16 09/13/18 12:00 BP 147/69 09/13/18 08:00 Pulse Ox 100 09/13/18 08:00 Intake & Output 09/12/18 09/13/18 09/13/18 18:59 06:59 18:59 Other: Voiding Method Toilet # Voids 1 1 - Respiratory Details: Nonlabored - Cardiovascular Rhythm: regular - Gastrointestinal Gastrointestinal Comment(s): Soft nontender nondistended - Integumentary Integumentary Comment(s): Minimal erythema and induration left forearm - Neurologic Neurologic Comment(s): Sensation and strength intact in left upper extremity - Psychiatric Psychiatric: Present: A&O x's 3 - Labs CBC & Chem 7: 09/12/18 06:28 09/13/18 05:59 Labs: Abnormal Lab Results - Last 24 Hours (Table) 09/13/18 Range/Units 05:59 Potassium 5.3 H (3.5-5.1) mmol/L Chloride 112 H (98-107) mmol/L Glucose 104 H (74-99) mg/dL Microbiology - Last 24 Hours (Table) 09/11/18 13:35 Blood Culture - Preliminary Blood No Growth after 24 hours 09/11/18 14:30 Gram Stain - Preliminary Arm - Left Wound Culture - Preliminary Presumptive MRSA Assessment and Plan Assessment: Left forearm cellulitis Plan: There is no drainable fluid collection seen on ultrasound patient is significantly improved with antibiotics. Continue antibiotics per infectious disease. There is no plans for surgical intervention please feel free to contact surgery with any further questions. Thank you for involving us in this patient's care.
[2018-09-13] MEDS: MELATONIN 5 MG TABLET PO SCH (21:16)
--- NOTE | 2018-09-14 01:31 | PN ---
PROGRESS NOTE DATE OF SERVICE: 09/13/2018 REASON FOR FOLLOW UP: Left arm MRSA infected hematoma. INTERVAL HISTORY: The patient is currently afebrile. He is breathing comfortably. Denies any chest pain, shortness of breath, cough, no abdominal pain. Overall pain and swelling to the left arm has improved. Currently with and no drainage. PHYSICAL EXAMINATION: Blood pressure 133/70 with a pulse of 64, temperature is 97.1. He is 98% on room air. General description is a middle-aged male lying in bed in no distress. Respiratory system: Unlabored breathing, clear to auscultation anteriorly. Heart S1, S2. Regular rate and rhythm. Abdomen soft, no tenderness. Left arm currently with minimal swelling. No redness. No fluctuation. No drainage. LABS: Creatinine 0.79. White count with blood culture has been negative. DIAGNOSTIC IMPRESSION AND PLAN: Patient with MRSA left arm infected hematoma, status post drainage. Blood culture has been negative. Local culture positive for MRSA. The patient is currently on Vancomycin to continue, hopefully finish therapy with oral antibiotic therapy. NO need for a PICC line. Overall, IV antibiotic therapy. Continue supportive care. MMODL / IJN: [id number] /
[2018-09-14] MEDS: VANCOMYCIN 1,500 MG in SODIUM CHLORIDE 0.9% 250 ML IVPB SCH (06:22)
[2018-09-14] MEDS: NON-FORMULARY DRUG (Buprenorphine Hcl/Naloxone Hcl [Suboxone 8 Mg-2 Mg Sl Film] 1 FILM) SUBLINGUAL SCH (06:58)
[2018-09-14] MEDS: BUTALB/APAP/CAFF 50-325-40MG TAB PO PRN (07:45)
[2018-09-14] MEDS: HEPARIN SODIUM,PORCINE 5,000 UNIT/ML 1 ML VIAL SQ SCH (07:45)
[2018-09-14] MEDS: FAMOTIDINE 20 MG TAB PO SCH (07:45)
[2018-09-14 07:53] LABS: Anion Gap 7 mmol/L; Blood Urea Nitrogen 19 mg/dL (9-20); Calcium 9.3 mg/dL (8.4-10.2); Carbon Dioxide 24 mmol/L (22-30); Chloride 111 mmol/L (98-107); Glucose 118 mg/dL (74-99); Potassium 4.7 mmol/L (3.5-5.1); Sodium 142 mmol/L (137-145)
[2018-09-14] MEDS: SODIUM CHLORIDE 0.9% 1,000 ML IV SCH (12:10)
[2018-09-14 14:14] VITALS: BP 145/70; PULSE 67; RESP 22; TEMP 97.4
[2018-09-14] MEDS ORDERED: SULFAMETHOX-TMP 800-160MG 1 EACH TAB PO STA (14:49)
--- NOTE | 2018-09-14 17:26 | PN ---
PROGRESS NOTE DATE OF SERVICE: 09/14/2018. REASON FOR FOLLOWUP: Left arm MRSA infected hematoma. INTERVAL HISTORY: The patient is currently afebrile. He is breathing comfortably. Denies having any chest pain or cough. No abdominal pain or pain to the left arm area. Site of the I and D currently with no drainage. No pain. PHYSICAL EXAMINATION: Blood pressure 145/70 with a pulse of 87, temperature 97.4, he is 99% on room air. GENERAL: A middle aged male up in the room in no distress. RESPIRATORY SYSTEM: Unlabored breathing, clear to auscultation anteriorly. HEART: S1, S2 regular rate and rhythm. Left arm currently with no swelling. Minimal erythema at the site of the drainage, but no fluctuation, no drainage was noticed. LABS: BUN of 19, creatinine 0.76, potassium 4.7. DIAGNOSTIC IMPRESSION AND PLAN: Patient with left arm infected hematoma after the patient did have a fall, status post ER drainage. The patient has shown overall clinical improvement. He will finish therapy with oral Bactrim DS 1 twice a day for 10 days with close outpatient followup. Prescription was sent to the pharmacy. Continue supportive care. MMODL / IJN: [id number] /
== END 2018-09-14 16:29 | disposition home or self-care (01) | DRG 603 ==
LOC: EC 11:31 → 1SOBS 15:01 → OBSVTOIN 09-13 11:01 → 3NMEDONC 09-13 14:57
PROVIDERS: ADMIT Internal Medicine; ATTEND Internal Medicine
DX: L03.114 Cellulitis of left upper limb (principal); L02.414 Cutaneous abscess of left upper limb; K21.9 Gastro-esophageal reflux disease without esophagitis; J45.909 Unspecified asthma, uncomplicated; S51.012S Laceration without foreign body of left elbow, sequela; W00.0XXS Fall on same level due to ice and snow, sequela; B95.62 Methicillin resistant Staphylococcus aureus infection as the cause of diseases classified elsewhere; F17.210 Nicotine dependence, cigarettes, uncomplicated; F41.9 Anxiety disorder, unspecified; F90.9 Attention-deficit hyperactivity disorder, unspecified type; G40.909 Epilepsy, unspecified, not intractable, without status epilepticus; Z80.1 Family history of malignant neoplasm of trachea, bronchus and lung; Z80.3 Family history of malignant neoplasm of breast; Z82.5 Family history of asthma and other chronic lower respiratory diseases; Z79.899 Other long term (current) drug therapy; Z86.14 Personal history of Methicillin resistant Staphylococcus aureus infection; F11.11 Opioid abuse, in remission; M54.9 Dorsalgia, unspecified; G89.29 Other chronic pain; H91.8X2 Other specified hearing loss, left ear
CPT/HCPCS: 10060; 36415; 80048; 80053; 80202; 83605; 85025; 87040; 87070; 87077; 87186; 87205; 96361; 96365; 96375; 99285

== ENCOUNTER → 2019-01-19 | Outpatient (CLI) | payer OTHER ==
[2019-01-19 15:48] LABS: Basophils % (A) 1 %; Eosinophils # (A) 0.5 k/uL (0-0.7); Eosinophils % (A) 13 %; HCT 45.6 % (39.0-53.0); HGB 14.5 gm/dL (13.0-17.5); Lymphocytes # (A) 1.3 k/uL (1.0-4.8); Lymphocytes % (A) 30 %; MCH 27.3 pg (25.0-35.0); MCHC 31.9 g/dL (31.0-37.0); MCV 85.8 fL (80.0-100.0); Mean Platelet Volume 6.9; Monocytes # (A) 0.4 k/uL (0-1.0); Monocytes % (A) 9 %; Neutrophils # (A) 1.8 k/uL (1.3-7.7); Neutrophils % (A) 44 %; Platelet Count 232 k/uL (150-450); RBC 5.32 m/uL (4.30-5.90); RDW 13.2 % (11.5-15.5); WBC 4.2 k/uL (3.8-10.6)
[2019-01-19 20:54] LABS: ALT 14 U/L (10-49); AST 20 U/L (14-35); African American GFR (CKD) 115.7 (60.0-200.0); Albumin/Globulin Ratio 2.11 (1.60-3.17); Alkaline Phosphatase 84 U/L (41-126); Amylase 25 U/L (23-121); Calcium 8.4 mg/dL (8.7-10.3); Carbon Dioxide 25.3 mmol/L (21.6-31.8); Chloride 101 mmol/L (96-109); Globulin 1.9 g/dL (1.6-3.3); Glucose 84 mg/dL (70-110); Potassium 4.8 mmol/L (3.5-5.5); Sodium 135 mmol/L (135-145); Total Bilirubin 0.1 mg/dL (0.2-1.2); Total Protein 5.9 g/dL (6.2-8.2)
[2019-01-19 21:17] LABS: Phenytoin (Dilantin) <0.5 ug/mL (10.0-20.0)
== END | disposition home or self-care (01) ==
LOC: LABWHC1 14:49
PROVIDERS: ATTEND Internal Medicine
DX: K30 Functional dyspepsia (principal); E40 Kwashiorkor; R51 Headache
CPT/HCPCS: 36415; 80053; 80185; 82150; 85025

== ENCOUNTER 2019-06-08 11:50 | Emergency (ER) | payer OTHER ==
[2019-06-08] MEDS ORDERED: KETOROLAC 30 MG/ML 1 ML VIAL IVP STA (12:53)
[2019-06-08] MEDS ORDERED: SODIUM CHLORIDE 0.9% 1,000 ML IV STA ×2 (12:53)
--- NOTE | 2019-06-08 13:36 | ED ---
Back Pain HPI - General Chief Complaint: Back Pain/Injury Stated Complaint: Back injury-[facility] Time Seen by Provider: 06/08/19 12:29 Source: patient, RN notes reviewed, old records reviewed Limitations: no limitations - History of Present Illness Initial Comments: This Patient is a 34-year-old male present emergency department today with week after a work injury. 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 Patient states that he felt a pull in his back and abdomen at that time. Patient states that he's been having some length right-sided lower abdominal pain occasionally with laying down since that time. Patient states that he's had no other significant occluding fevers or chills. The state that he has had some hesitancy with urination. Patient is on Suboxone for pain control. 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 Patient reports his pain is worse with certain movements. - Related Data Home Medications Medication Instructions Recorded Confirmed Buprenorphine HCl/Naloxone HCl 1 film SUBLINGUAL QAM 07/05/17 06/08/19 [Suboxone 8 mg-2 mg Sl Film] Buprenorphine HCl/Naloxone HCl 0.5 film SUBLINGUAL HS 06/08/19 06/08/19 [Suboxone 8 mg-2 mg Sl Film] Ibuprofen 800 mg PO TID PRN 06/08/19 06/08/19 Topiramate [Topamax] 50 mg PO BID 06/08/19 06/08/19 Varenicline [Chantix Starter Pack] 0.5 mg PO BID 06/08/19 06/08/19 Venlafaxine HCl [Effexor XR] 150 mg PO HS 06/08/19 06/08/19 cloNIDine HCL [Catapres] 0.2 mg PO HS 06/08/19 06/08/19 lamoTRIgine [LaMICtal] 150 mg PO BID 06/08/19 06/08/19 Previous Rx's Medication Instructions Recorded Cyclobenzaprine [Flexeril] 10 mg PO TID #12 tab 06/08/19 Ibuprofen [Motrin] 600 mg PO Q8HR PRN #20 tab 06/08/19 Allergies Allergy/AdvReac Type Severity Reaction Status Date / Time cefepime Allergy seizure Verified 06/08/19 12:12 prochlorperazine edisylate Allergy SEIZURE Verified 06/08/19 12:12 [From Compazine] prochlorperazine maleate Allergy SEIZURE Verified 06/08/19 12:12 [From Compazine] Review of Systems ROS Statement: Those systems with pertinent positive or pertinent negative responses have been documented in the HPI. ROS Other: All systems not noted in ROS Statement are negative. 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 lower back pain with arthritis, herniated discs, migraines , seizure with compazine as a child and once while in rehab in 2013.last seizure 5-6 months ago, adhd/anxiety, [place] ear(past perforated eardrum History of Any Multi-Drug Resistant Organisms: MRSA Date of last positivie culture/infection: 09/11/18 MDRO Source:: Left Arm Past Surgical History: No Surgical Hx Reported Additional Past Surgical History / Comment(s): HAD EAR SURGERY AN INFANT twice. Cystoscopy Past Anesthesia/Blood Transfusion Reactions: No Reported Reaction Past Psychological History: ADD/ADHD, Anxiety Smoking Status: Current every day smoker Past Alcohol Use History: None Reported Past Drug Use History: None Reported - Past Family History Father Family Medical History: Cancer Additional Family Medical History / Comment(s): FATHER HAd EMPHYSEMA AND STAGE IV LUNG CA. ALSO HAS AN AORTIC ANEURYSM. recently . Mother Family Medical History: Cancer Additional Family Medical History / Comment(s): BREAST CANCER. General Exam - General Exam Comments Initial Comments: His is a 34-year-old male. Alert and oriented. No significant distress. General: Well appearing, well nourished, in no distress. Oriented x 3, normal mood and affect . Ambulating without difficulty. Skin: Good turgor, no rash, unusual bruising or prominent lesions Hair: Normal texture and distribution. HEENT: Head: Normocephalic, atraumatic, no visible or palpable masses, depressio ns, or scaring. Eyes: Visual acuity intact, conjunctiva clear, sclera non-icteric, EOM intact, PERRL. Neck: Supple, without lesions, bruits, or adenopathy, thyroid non-enlarged and non-tender Heart: No cardiomegaly or thrills; regular rate and rhythm, no murmur or gallop Lungs: Clear to auscultation and percussion Abdomen: Bowel sounds normal, RLQ groin tenderness. No incarcerated hernia, sli ght palpable bulgge with straining. Positive carnet sign. Back: Spine normal without deformity and has paraspinal muscle tenderness over the right and left. Extremities: No amputations or deformities, cyanosis, edema or varicosities, peripheral pulses intact Musculoskeletal: Normal gait and station. No misalignment, asymmetry, crepitation, defects, tenderness, masses, effusions, decreased range of motion, instability, atrophy or abnormal strength or tone in the head, neck, spine, ribs, pelvis or extremities. Neurologic: CN 2-12 normal. Sensation to pain, touch, and proprioception normal. DTRs normal in upper and lower extremities. No pathologic reflexes. Psychiatric: Oriented X3, intact recent and remote memory, judgment and insight, normal mood and affect. Limitations: no limitations Course Vital Signs 06/08/19 06/08/19 11:58 15:26 Temperature 97.8 F 98.5 F Pulse Rate 63 84 Respiratory 18 17 Rate Blood Pressure 140/70 151/82 O2 Sat by Pulse 100 99 Oximetry Medical Decision Making - Medical Decision Making This is a 34-year-old male presents returns today with complaint of back pain and lower abdominal pain. Symptoms are worse with certain movements. At this time patient's lab days are unremarkable. Urinalysis negative for bladder infection or protein. He does have some positive muscle tenderness positive Kernig sign and some paraspinal lumbar spine tenderness. X-ray shows L5-S1 compression. Patient also has no objective bowel gas pattern KUB. Discussed Patient to take anti-inflammatory medication and advised with a small palpable pulse concern for mild hernia Patient could follow up with surgeon. No signs of incarceration or anything else this time. - Lab Data Result diagrams: 06/08/19 14:16 06/08/19 14:16 Lab Results 06/08/19 06/08/19 06/08/19 Range/Units 13:15 14:16 14:16 WBC 5.0 (3.8-10.6) k/uL RBC 5.17 (4.30-5.90) m/uL Hgb 15.4 (13.0-17.5) gm/dL Hct 44.0 (39.0-53.0) % MCV 85.2 (80.0-100.0) fL MCH 29.8 (25.0-35.0) pg MCHC 35.0 (31.0-37.0) g/dL RDW 12.5 (11.5-15.5) % Plt Count 193 (150-450) k/uL Neutrophils % 65 % Lymphocytes % 20 % Monocytes % 7 % Eosinophils % 6 % Basophils % 1 % Neutrophils # 3.3 (1.3-7.7) k/uL Lymphocytes # 1.0 (1.0-4.8) k/uL Monocytes # 0.3 (0-1.0) k/uL Eosinophils # 0.3 (0-0.7) k/uL Basophils # 0.0 (0-0.2) k/uL Sodium 141 (137-145) mmol/L Potassium 4.6 (3.5-5.1) mmol/L Chloride 110 H (98-107) mmol/L Carbon Dioxide 23 (22-30) mmol/L Anion Gap 8 mmol/L BUN 18 (9-20) mg/dL Creatinine 0.94 (0.66-1.25) mg/dL Est GFR (CKD-EPI)AfAm >90 (>60 ml/min/1.73 sqM) Est GFR (CKD-EPI)NonAf >90 (>60 ml/min/1.73 sqM) Glucose 97 (74-99) mg/dL Calcium 9.5 (8.4-10.2) mg/dL Total Bilirubin 0.4 (0.2-1.3) mg/dL AST 26 (17-59) U/L ALT 17 L (21-72) U/L Alkaline Phosphatase 55 (38-126) U/L Total Protein 7.2 (6.3-8.2) g/dL Albumin 4.2 (3.5-5.0) g/dL Amylase 55 (30-110) U/L Lipase 34 (23-300) U/L Urine Color Yellow Urine Appearance Turbid (Clear) Urine pH 8.0 (5.0-8.0) Ur Specific [place] 1.019 (1.001-1.035) Urine Protein Trace H (Negative) Urine Glucose (UA) Negative (Negative) Urine Ketones Negative (Negative) Urine Blood Negative (Negative) Urine Nitrite Negative (Negative) Urine Bilirubin Negative (Negative) Urine Urobilinogen <2.0 (<2.0) mg/dL Ur Leukocyte Esterase Negative (Negative) Urine WBC 3 (0-5) /hpf Amorphous Sediment Many H (None) /hpf Urine Mucus Rare H (None) /hpf Urine Sperm Few H (None) /hpf - Radiology Data Radiology results: report reviewed KUB shows unremarkable abdomen. Posterior disc pain is narrowing at L5-S1 slightly progressive for comparison. Disposition Clinical Impression: Abdominal muscle strain, Degenerative disc disease at L5-S1 level, Abdominal wall hernia Disposition: HOME SELF-CARE Condition: Good Instructions (If sedation given, give patient instructions): Acute Low Back Pain (ED) Additional Instructions: Please use medication as discussed. Please follow up with family doctor if sympt oms have not improved over the next two days. Please return to the emergency room if your symptoms increase or worsen or for any other concerns. Prescriptions: Cyclobenzaprine [Flexeril] 10 mg PO TID #12 tab Ibuprofen [Motrin] 600 mg PO Q8HR PRN #20 tab PRN Reason: Pain Is patient prescribed a controlled substance at d/c from ED?: No Referrals: None,Stated [Primary Care Provider] - 1-2 days Adithya Carey MD [STAFF PHYSICIAN] - 1-2 days Time of Disposition: 15:10
--- NOTE | 2019-06-08 13:45 | XR ---
EXAMINATION TYPE: XR KUB DATE OF EXAM: 06/08/2019 COMPARISON: None INDICATION: Abdomen pain lower quadrant pain and right lower quadrant pain TECHNIQUE: Single view abdomen upright view FINDINGS: There is a normal bowel gas pattern. No suspicious air-fluid levels or differential air-fluid levels are present. Some nonspecific small bowel gas is present. Normal bowel gas within the colon. No mass effect is evident. Psoas margins are normal. No organomegaly is present. IMPRESSION: 1. Unremarkable abdomen
[2019-06-08 13:46] LABS: Amorphous Sediment,Urine Many /hpf; Appearance,Urine Turbid (Clear); Bilirubin,Urine Negative (Negative); Blood,Urine Negative (Negative); Color,Urine Yellow; Glucose,Urine (UA) Negative (Negative); Ketones,Urine Negative (Negative); Leukocyte Esterase,Urine Negative (Negative); Mucus,Urine Rare /hpf; Nitrite,Urine Negative (Negative); Protein,Urine Trace (Negative); Specific Gravity,Urine 1.019 (1.001-1.035); Sperm,Urine Few /hpf; Urobilinogen,Urine <2.0 mg/dL (<2.0); WBC,Urine 3 /hpf (0-5)
--- NOTE | 2019-06-08 13:46 | XR ---
EXAMINATION TYPE: XR lumbar spine 2 or 3V DATE OF EXAM: 06/08/2019 COMPARISON: 09/06/2017 HISTORY: Pain TECHNIQUE: 3 view lumbar spine FINDINGS: There are 5 lumbar-type vertebral bodies. The pedicles are intact. Some posterior disc spac e narrowing is present L5-S1. Remaining disc have normal hydration. There is preservation of vertebra l body height. IMPRESSION: 1. Posterior disc space narrowing L5-S1. This may be slightly progressive from the comparison.
[2019-06-08] MEDS ORDERED: KETOROLAC 30 MG/ML 1 ML VIAL IM STA (13:56)
[2019-06-08 14:42] LABS: ALT 17 U/L (21-72); AST 26 U/L (17-59); African American GFR (CKD) >90 (>60 ml/min/1.73 sqM); Albumin 4.2 g/dL (3.5-5.0); Alkaline Phosphatase 55 U/L (38-126); Amylase 55 U/L (30-110); Anion Gap 8 mmol/L; Blood Urea Nitrogen 18 mg/dL (9-20); Calcium 9.5 mg/dL (8.4-10.2); Carbon Dioxide 23 mmol/L (22-30); Chloride 110 mmol/L (98-107); Glucose 97 mg/dL (74-99); Potassium 4.6 mmol/L (3.5-5.1); Sodium 141 mmol/L (137-145); Total Bilirubin 0.4 mg/dL (0.2-1.3); Total Protein 7.2 g/dL (6.3-8.2)
[2019-06-08 14:57] LABS: Basophils % (A) 1 %; Eosinophils # (A) 0.3 k/uL (0-0.7); Eosinophils % (A) 6 %; HGB 15.4 gm/dL (13.0-17.5); Lymphocytes % (A) 20 %; MCH 29.8 pg (25.0-35.0); MCV 85.2 fL (80.0-100.0); Mean Platelet Volume 7.7; Monocytes # (A) 0.3 k/uL (0-1.0); Monocytes % (A) 7 %; Neutrophils # (A) 3.3 k/uL (1.3-7.7); Neutrophils % (A) 65 %; Platelet Count 193 k/uL (150-450); RBC 5.17 m/uL (4.30-5.90); RDW 12.5 % (11.5-15.5)
[2019-06-08 15:28] VITALS: BP 151/82; PULSE 84; RESP 17; TEMP 98.5
== END 2019-06-08 15:27 | disposition home or self-care (01) ==
LOC: EC 11:50
DX: M51.37 Other intervertebral disc degeneration, lumbosacral region (principal); S39.011A Strain of muscle, fascia and tendon of abdomen, initial encounter; K43.9 Ventral hernia without obstruction or gangrene; S39.92XA Unspecified injury of lower back, initial encounter; K21.9 Gastro-esophageal reflux disease without esophagitis; G40.909 Epilepsy, unspecified, not intractable, without status epilepticus; F41.9 Anxiety disorder, unspecified; F90.9 Attention-deficit hyperactivity disorder, unspecified type; F17.200 Nicotine dependence, unspecified, uncomplicated; Z79.899 Other long term (current) drug therapy; Z53.9 Procedure and treatment not carried out, unspecified reason; Z88.1 Allergy status to other antibiotic agents; Z88.8 Allergy status to other drugs, medicaments and biological substances; Z86.14 Personal history of Methicillin resistant Staphylococcus aureus infection; X50.0XXA Overexertion from strenuous movement or load, initial encounter; Y93.89 Activity, other specified; Y92.69 Other specified industrial and construction area as the place of occurrence of the external cause; Y99.0 Civilian activity done for income or pay
CPT/HCPCS: 36415; 80053; 82150; 83690; 85025; 81001; 72100; 74018; 96372; 99284; J1885

== ENCOUNTER → 2019-08-07 | Outpatient (CLI) | payer OTHER ==
--- NOTE | 2019-08-07 14:42 | MR ---
EXAMINATION TYPE: MR lumbar spine wo con DATE OF EXAM: 08/07/2019 1:32 PM COMPARISON: 09/30/2017 HISTORY: Low back pain Multiplanar, MultiSpin echo imaging of the lumbar spine was performed. L1-L2: Normal disc appearance without desiccation. No herniation, protrusion or disc bulging. No ca nal stenosis is present. Foramina are patent bilaterally. L2-L3: Normal disc appearance without desiccation. No herniation, protrusion or disc bulging. No ca nal stenosis is present. Foramina are patent bilaterally. L3-L4: Normal disc appearance without desiccation. No herniation, protrusion or disc bulging. No ca nal stenosis is present. Foramina are patent bilaterally. L4-L5: Mild decreased signal ossified compatible degenerative disc disease. Posterior disc bulge with small annular tear noted. Mild effacement ventral thecal sac. No evidence for dennys herniation or ce ntral stenosis. Foramina are patent bilaterally. L5-S1: Mild disc desiccation noted. Posterior disc bulge mildly effaces the ventral thecal sac. Again noted there is borderline lateral recess stenosis. Moderate bilateral foraminal encroachment is iden tified. Facet joint arthropathy seen. Lumbar segments are intact. No paraspinal masses are identified. Conus medullaris has a normal appe arance. IMPRESSION: 1. Degenerative disc disease and disc bulging at L4-5 and L5-S1 as noted essentially unchanged from p rior study.
== END | disposition home or self-care (01) ==
LOC: RADMRIMAIN 13:03
PROVIDERS: ATTEND Family Medicine
DX: M51.27 Other intervertebral disc displacement, lumbosacral region (principal); M51.36 Other intervertebral disc degeneration, lumbar region
CPT/HCPCS: 72148

== ENCOUNTER 2019-08-11 03:49 | Emergency (ER) | payer OTHER ==
[2019-08-11 04:26] VITALS: RESP 18
--- NOTE | 2019-08-11 04:41 | ED ---
Overdose HPI - General Chief Complaint: Overdose Stated Complaint: Overdose Time Seen by Provider: 08/11/19 04:11 Source: patient, EMS Mode of arrival: EMS Limitations: no limitations - History of Present Illness MD Complaint: accidental overdose -: minutes(s) Context: Accidental Overdose: wanted to get high Treatments Prior to Arrival: oxygen, narcan - Related Data Home Medications Medication Instructions Recorded Confirmed Buprenorphine HCl/Naloxone HCl 1 film SUBLINGUAL QAM 07/05/17 06/08/19 [Suboxone 8 mg-2 mg Sl Film] Buprenorphine HCl/Naloxone HCl 0.5 film SUBLINGUAL HS 06/08/19 06/08/19 [Suboxone 8 mg-2 mg Sl Film] Ibuprofen 800 mg PO TID PRN 06/08/19 06/08/19 Topiramate [Topamax] 50 mg PO BID 06/08/19 06/08/19 Varenicline [Chantix Starter Pack] 0.5 mg PO BID 06/08/19 06/08/19 Venlafaxine HCl [Effexor XR] 150 mg PO HS 06/08/19 06/08/19 cloNIDine HCL [Catapres] 0.2 mg PO HS 06/08/19 06/08/19 lamoTRIgine [LaMICtal] 150 mg PO BID 06/08/19 06/08/19 Previous Rx's Medication Instructions Recorded Cyclobenzaprine [Flexeril] 10 mg PO TID #12 tab 06/08/19 Ibuprofen [Motrin] 600 mg PO Q8HR PRN #20 tab 06/08/19 Hydrocodone/Acetaminophen [[place] 1 each PO Q6HR PRN #16 tab 08/11/19 5-325] Allergies Allergy/AdvReac Type Severity Reaction Status Date / Time cefepime Allergy seizure Verified 06/08/19 12:12 prochlorperazine edisylate Allergy SEIZURE Verified 06/08/19 12:12 [From Compazine] prochlorperazine maleate Allergy SEIZURE Verified 06/08/19 12:12 [From Compazine] Review of Systems ROS Statement: Those systems with pertinent positive or pertinent negative responses have been documented in the HPI. ROS Other: All systems not noted in ROS Statement are negative. Respiratory: Denies: cough, dyspnea Cardiovascular: Denies: chest pain, orthopnea, syncope Gastrointestinal: Reports: abdominal pain, nausea, vomiting, diarrhea. 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 lower back pain with arthritis, herniated discs, migraines , seizure with compazine as a child and once while in rehab in 2013.last seizure 5-6 months ago, adhd/anxiety, [place] lt ear(past perforated eardrum History of Any Multi-Drug Resistant Organisms: MRSA Date of last positivie culture/infection: 09/11/18 MDRO Source:: Left Arm Past Surgical History: No Surgical Hx Reported Additional Past Surgical History / Comment(s): HAD EAR SURGERY AN INFANT twice. Cystoscopy Past Anesthesia/Blood Transfusion Reactions: No Reported Reaction Past Psychological History: ADD/ADHD, Anxiety Smoking Status: Current every day smoker Past Alcohol Use History: None Reported Past Drug Use History: Heroin - Past Family History Father Family Medical History: Cancer Additional Family Medical History / Comment(s): FATHER HAd EMPHYSEMA AND STAGE IV LUNG CA. ALSO HAS AN AORTIC ANEURYSM. recently . Mother Family Medical History: Cancer Additional Family Medical History / Comment(s): BREAST CANCER. General Exam Limitations: no limitations General appearance: alert, anxious Head exam: Present: atraumatic, normocephalic Eye exam: Present: normal appearance. Absent: scleral icterus, conjunctival injection, nystagmus ENT exam: Present: mucous membranes dry Neck exam: Present: normal inspection, full ROM Respiratory exam: Present: normal lung sounds bilaterally. Absent: respiratory distress, wheezes, rales, rhonchi, stridor Cardiovascular Exam: Present: regular rate, normal rhythm, normal heart sounds. Absent: systolic murmur, diastolic murmur, rubs, gallop GI/Abdominal exam: Present: soft. Absent: distended, tenderness, rigid, mass Extremities exam: Present: normal inspection, normal capillary refill. Absent: calf tenderness Back exam: Present: normal inspection Neurological exam: Present: alert, oriented X3, CN II-XII intact. Absent: motor sensory deficit Course Vital Signs 08/11/19 08/11/19 03:57 07:11 Temperature 98.7 F Pulse Rate 98 78 Respiratory 18 18 Rate Blood Pressure 124/80 124/64 O2 Sat by Pulse 97 98 Oximetry Medical Decision Making - Lab Data Result diagrams: 08/11/19 04:29 08/11/19 04:29 Lab Results 08/11/19 08/11/19 Range/Units 04:29 04:29 WBC 10.7 H (3.8-10.6) k/uL RBC 4.97 (4.30-5.90) m/uL Hgb 14.0 (13.0-17.5) gm/dL Hct 42.4 (39.0-53.0) % MCV 85.3 (80.0-100.0) fL MCH 28.2 (25.0-35.0) pg MCHC 33.0 (31.0-37.0) g/dL RDW 12.6 (11.5-15.5) % Plt Count 262 (150-450) k/uL Neutrophils % 80 % Lymphocytes % 11 % Monocytes % 7 % Eosinophils % 1 % Basophils % 0 % Neutrophils # 8.6 H (1.3-7.7) k/uL Lymphocytes # 1.2 (1.0-4.8) k/uL Monocytes # 0.7 (0-1.0) k/uL Eosinophils # 0.1 (0-0.7) k/uL Basophils # 0.0 (0-0.2) k/uL Sodium 141 (137-145) mmol/L Potassium 4.0 (3.5-5.1) mmol/L Chloride 105 (98-107) mmol/L Carbon Dioxide 27 (22-30) mmol/L Anion Gap 9 mmol/L BUN 19 (9-20) mg/dL Creatinine 0.94 (0.66-1.25) mg/dL Est GFR (CKD-EPI)AfAm >90 (>60 ml/min/1.73 sqM) Est GFR (CKD-EPI)NonAf >90 (>60 ml/min/1.73 sqM) Glucose 79 (74-99) mg/dL Calcium 9.8 (8.4-10.2) mg/dL - EKG Data -: EKG Interpreted by Mo EKG shows normal: sinus rhythm, axis (Normal), intervals (Normal), QRS complexes (Possible voltage criteria for LVH.), ST-T waves (Normal) Disposition Clinical Impression: Accidental drug overdose Disposition: HOME SELF-CARE Condition: Good Instructions (If sedation given, give patient instructions): Adult Overdose (E D) Prescriptions: Hydrocodone/Acetaminophen [[place] 5-325] 1 each PO Q6HR PRN #16 tab PRN Reason: Pain Is patient prescribed a controlled substance at d/c from ED?: Yes When asked, does pt state using other controlled substances?: No If prescribed controlled substance>3 days was MAPS reviewed?: Prescribed <3 Days If opioid is for acute pain is fill amount 7 days or less?: Yes If Rx opioid, was Start Talking consent form obtained?: Yes Referrals: Damon Elam Jr, DO [Primary Care Provider] - 1-2 days
[2019-08-11 05:35] LABS: Basophils % (A) 0 %; Eosinophils # (A) 0.1 k/uL (0-0.7); Eosinophils % (A) 1 %; HCT 42.4 % (39.0-53.0); Lymphocytes # (A) 1.2 k/uL (1.0-4.8); Lymphocytes % (A) 11 %; MCH 28.2 pg (25.0-35.0); MCV 85.3 fL (80.0-100.0); Mean Platelet Volume 7.3; Monocytes # (A) 0.7 k/uL (0-1.0); Monocytes % (A) 7 %; Neutrophils # (A) 8.6 k/uL (1.3-7.7); Neutrophils % (A) 80 %; Platelet Count 262 k/uL (150-450); RBC 4.97 m/uL (4.30-5.90); RDW 12.6 % (11.5-15.5); WBC 10.7 k/uL (3.8-10.6)
[2019-08-11 05:45] LABS: African American GFR (CKD) >90 (>60 ml/min/1.73 sqM); Anion Gap 9 mmol/L; Blood Urea Nitrogen 19 mg/dL (9-20); Calcium 9.8 mg/dL (8.4-10.2); Carbon Dioxide 27 mmol/L (22-30); Chloride 105 mmol/L (98-107); Glucose 79 mg/dL (74-99); Non-African American GFR(CKD) >90 (>60 ml/min/1.73 sqM); Sodium 141 mmol/L (137-145)
[2019-08-11] MEDS ORDERED: METHADONE 5 MG TAB PO STA (06:21)
[2019-08-11 08:31] VITALS: BP 140/82; PULSE 89; TEMP 97.8
== END 2019-08-11 07:45 | disposition home or self-care (01) ==
LOC: EC 03:49
DX: T50.901A Poisoning by unspecified drugs, medicaments and biological substances, accidental (unintentional), initial encounter (principal); G40.909 Epilepsy, unspecified, not intractable, without status epilepticus; F41.9 Anxiety disorder, unspecified; F17.200 Nicotine dependence, unspecified, uncomplicated; Z86.14 Personal history of Methicillin resistant Staphylococcus aureus infection; Z79.891 Long term (current) use of opiate analgesic; Z79.899 Other long term (current) drug therapy; Z88.1 Allergy status to other antibiotic agents; Z88.8 Allergy status to other drugs, medicaments and biological substances
CPT/HCPCS: 36415; 80048; 85025; 99284

== ENCOUNTER 2020-09-13 14:25 | Emergency (ER) | payer OTHER ==
[2020-09-13 14:32] VITALS: BP 143/90; PULSE 83; RESP 18
[2020-09-13 14:35] VITALS: TEMP 98
[2020-09-13] MEDS ORDERED: ACETAMINOPHEN TAB 325 MG TAB PO STA (14:55)
[2020-09-13] MEDS ORDERED: LIDOCAINE 1% INJ 10MG/ML (20 ML MDV) SQ ONE (15:02)
--- NOTE | 2020-09-13 15:09 | ED ---
Eye Problem HPI - General Chief complaint: Eye Problems Stated complaint: lt eye/facial injury Time Seen by Provider: 09/13/20 14:44 Source: patient, EMS, RN notes reviewed Mode of arrival: EMS Limitations: no limitations - History of Present Illness Initial comments: Patient is a 35-year-old male that presents to emergency department complaining of eye trauma after a homemade pull-up bar fell from his pole barn rafters which she states is 16 feet in the air and hit him in the left lateral aspect of the bridge of his nose between his eye. He noted that he put an extension ladder up to try to reach the pull-up bar like he usually does but today soon as the ladder at the bar 8 came falling down he looked up and hit him in the face. She noted that he was codi he had a bloody with some help to get up, washcloth to put pressure on his eye. They did call EMS nor transported here. He denied losing consciousness.Patient states that the pain is a 7 out of 10 right now but he didn't want any opiates or heart pain medications as he is currently getting treated for addiction. He said the pain is tolerable but constant. He does suffer from migraines. He denied any change in vision, blurry vision, double vision, nausea, vomiting, chest pain, shortness of breath, Constipation, and diarrhea, fever, fatigue, chills.Line Patient verbally denied wanting a tetanus shot. - Related Data Home Medications Medication Instructions Recorded Confirmed Buprenorphine HCl/Naloxone HCl 1 film SUBLINGUAL QAM 07/05/17 06/08/19 [Suboxone 8 mg-2 mg Sl Film] Buprenorphine HCl/Naloxone HCl 0.5 film SUBLINGUAL HS 06/08/19 06/08/19 [Suboxone 8 mg-2 mg Sl Film] Ibuprofen 800 mg PO TID PRN 06/08/19 06/08/19 Topiramate [Topamax] 50 mg PO BID 06/08/19 06/08/19 Varenicline [Chantix Starter Pack] 0.5 mg PO BID 06/08/19 06/08/19 Venlafaxine HCl [Effexor XR] 150 mg PO HS 06/08/19 06/08/19 cloNIDine HCL [Catapres] 0.2 mg PO HS 06/08/19 06/08/19 lamoTRIgine [LaMICtal] 150 mg PO BID 06/08/19 06/08/19 Previous Rx's Medication Instructions Recorded Cyclobenzaprine [Flexeril] 10 mg PO TID #12 tab 06/08/19 Ibuprofen [Motrin] 600 mg PO Q8HR PRN #20 tab 06/08/19 Hydrocodone/Acetaminophen [[place] 1 each PO Q6HR PRN #16 tab 08/11/19 5-325] Tobramycin [Tobrex 0.3% Ophth Soln] 1 drop LEFT EYE Q4HR #5 ml 09/13/20 Allergies Allergy/AdvReac Type Severity Reaction Status Date / Time cefepime Allergy seizure Verified 06/08/19 12:12 prochlorperazine edisylate Allergy SEIZURE Verified 06/08/19 12:12 [From Compazine] prochlorperazine maleate Allergy SEIZURE Verified 06/08/19 12:12 [From Compazine] Review of Systems ROS Statement: Those systems with pertinent positive or pertinent negative responses have been documented in the HPI. ROS Other: All systems not noted in ROS Statement are negative. 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 lower back pain with arthritis, herniated discs, migraines , seizure with compazine as a child and once while in rehab in 2013.last seizure 5-6 months ago, adhd/anxiety, [place] lt ear(past perforated eardrum, migraines History of Any Multi-Drug Resistant Organisms: MRSA Date of last positivie culture/infection: 09/11/18 MDRO Source:: Left Arm Past Surgical History: No Surgical Hx Reported, Hernia Repair Additional Past Surgical History / Comment(s): HAD EAR SURGERY AN twice. Cystoscopy Past Anesthesia/Blood Transfusion Reactions: No Reported Reaction Past Psychological History: ADD/ADHD, Anxiety Smoking Status: Current every day smoker, Vaper Past Alcohol Use History: None Reported Past Drug Use History: Marijuana - Past Family History Father Family Medical History: Cancer Additional Family Medical History / Comment(s): FATHER HAd EMPHYSEMA AND STAGE IV LUNG CA. ALSO HAS AN AORTIC ANEURYSM. recently . Mother Family Medical History: Cancer Additional Family Medical History / Comment(s): BREAST CANCER. General Exam Limitations: no limitations General appearance: alert, in no apparent distress Head exam: Present: atraumatic, normocephalic, normal inspection Eye exam: Present: normal appearance, PERRL, EOMI, conjunctival injection, periorbital swelling, other (Positive corneal abrasion seen On fluorescein strip exam., Subconjunctival hemorrhage due to trauma.). Absent: scleral icterus Pupils: Present: normal accommodation ENT exam: Present: normal exam, mucous membranes moist Neck exam: Present: normal inspection. Absent: tenderness, meningismus, lymphadenopathy Respiratory exam: Present: normal lung sounds bilaterally. Absent: respiratory distress, wheezes, rales, rhonchi, stridor Cardiovascular Exam: Present: regular rate, normal rhythm, normal heart sounds. Absent: systolic murmur, diastolic murmur, rubs, gallop, clicks GI/Abdominal exam: Present: soft, normal bowel sounds. Absent: distended, tenderness, guarding, rebound, rigid Extremities exam: Present: normal inspection, full ROM, normal capillary refill. Absent: tenderness, pedal edema, joint swelling, calf tenderness Neurological exam: Present: alert, oriented X3, CN II-XII intact Psychiatric exam: Present: normal affect, normal mood Skin exam: Present: warm, dry, normal color, other (Laceration to the left lateral aspect of the nose approximately 2-1/2-3 cm long, curved with clean edges non-jagged.). Absent: intact, rash Course Vital Signs 09/13/20 14:26 Temperature 98.0 F Pulse Rate 83 Respiratory 18 Rate Blood Pressure 143/90 O2 Sat by Pulse 100 Oximetry - Reevaluation(s) Reevaluation #1: 09/13/20 16:[address] Procedures - Laceration Laceration #1 Consent Obtained: verbal consent Indication: laceration Site: other (Left lateral aspect of the bridge of the nose) Size (cm): 3 Description: linear (NV circular), clean Depth: simple, single layer Anesthetic Used: lidocaine 1% Anesthesia Technique: local infiltration Size of Sutures: 6-0 Number of Sutures: 5 Technique: simple, interrupted Complications: pain Patient Tolerated Procedure: well Medical Decision Making - Medical Decision Making 35-year-old male complaining of trauma to left eyes/nose from a falling bar on the rafters of his pole barn. CT was negative. Laceration was Flushed and cleaned with normal saline. And t hen was cleaned with iodine and then draped with sterile draping. 1% lidocaine was injected subcutaneously for anesthesia. Patient tolerated anesthesia suturing well Patient denied head CT and tetanus injection.. Case was discussed with Dr. Petit, incised patient is discharged home with Ophthalmic antibiotic drops and was told to come back in 5 days for suture removal - Radiology Data Radiology results: report reviewed, image reviewed CT: Soft tissue swelling of the nasal and periorbital region, no acute fractures. Disposition Clinical Impression: Nasal laceration, Eyes swollen, Corneal abrasion, left, Subconjunctival hemorrhage of left eye Disposition: HOME SELF-CARE Instructions (If sedation given, give patient instructions): Laceration (ED), Facial Laceration (ED) Additional Instructions: Please return to the Emergency Department if symptoms worsen or any other concerns. Follow-up with primary care 1-2 days. Come back in 5 days for suture removal. Take [id number] pain medication as needed for pain. Use antibiotic drops as prescribed Follow-up with ophthalmology if any change in vision, blurry vision. Is patient prescribed a controlled substance at d/c from ED?: No Referrals: Damon Elam Jr, [Primary Care Provider] - 1-2 days Time of Disposition: 16:23
--- NOTE | 2020-09-13 15:37 | CT ---
EXAMINATION TYPE: CT facial bones wo con DATE OF EXAM: 09/13/2020 COMPARISON: 08/01/2016 HISTORY: Left eye, facial injury CT DLP: 399.2 mGycm CONTRAST: 0 mL of Isovue 300 The paranasal sinuses are examined in the axial plane at 2 mm thick sections. Reconstructed images i n the coronal plane were obtained. Soft tissue injury is along the nasal region on the left preseptal region. Subcutaneous air is presen t. The globes are symmetrical. Intraconal and extraconal fat is unremarkable. The frontal bone and nasal bones are intact. Greater wings of sphenoid are normal. Zygomatic arches a re intact. No blowout fractures identified. Because thickening is within the left maxillary sinus. The left ostiomeatal unit is patent, some muco bhavana thickening however is present along the inferior left orbit. Anterior ethmoid air cells have muc osal thickening. Remaining ethmoid air cells are clear. The sphenoid sinuses are clear. The frontal sinuses are clear. The septum is evaluated. There is septal deviation to the left. The right ostiomeatal units is patent. IMPRESSIONS: 1. Soft tissue injury left nasal and periorbital region. 2. No underlying fractures are evident. 3. Mucosal thickening within left maxillary and anterior ethmoid air cells.
[2020-09-13] MEDS ORDERED: FLUORESCEIN STRIPS 1 MG STRIP LEFT EYE ONE (16:09)
== END 2020-09-13 16:34 | disposition home or self-care (01) ==
LOC: EC 14:25
DX: S01.21XA Laceration without foreign body of nose, initial encounter (principal); S05.02XA Injury of conjunctiva and corneal abrasion without foreign body, left eye, initial encounter; H11.32 Conjunctival hemorrhage, left eye; F41.9 Anxiety disorder, unspecified; F90.9 Attention-deficit hyperactivity disorder, unspecified type; K21.9 Gastro-esophageal reflux disease without esophagitis; I10 Essential (primary) hypertension; G40.909 Epilepsy, unspecified, not intractable, without status epilepticus; F17.200 Nicotine dependence, unspecified, uncomplicated; Z79.899 Other long term (current) drug therapy; Z88.1 Allergy status to other antibiotic agents; Z88.8 Allergy status to other drugs, medicaments and biological substances; Z86.14 Personal history of Methicillin resistant Staphylococcus aureus infection; Z86.69 Personal history of other diseases of the nervous system and sense organs; W22.8XXA Striking against or struck by other objects, initial encounter; Y92.009 Unspecified place in unspecified non-institutional (private) residence as the place of occurrence of the external cause
CPT/HCPCS: 70486; 99284; 12013; J2001

== ENCOUNTER → 2021-03-09 | Outpatient (CLI) | payer OTHER ==
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
== END | disposition home or self-care (01) ==
LOC: RADMRIMAIN 12:40
PROVIDERS: ATTEND Family Medicine
DX: M51.27 Other intervertebral disc displacement, lumbosacral region (principal); M51.37 Other intervertebral disc degeneration, lumbosacral region; M99.73 Connective tissue and disc stenosis of intervertebral foramina of lumbar region
CPT/HCPCS: 72148

== ENCOUNTER 2022-04-18 15:07 | Emergency (ER) | payer OTHER ==
[2022-04-18] MEDS ORDERED: methylPREDNISolone SOD SUCCI 125 MG/2 ML VIAL IV STA (15:09)
[2022-04-18] MEDS ORDERED: diphenhydrAMINE 50 MG/ML 1 ML VIAL IVP STA (15:09)
[2022-04-18] MEDS ORDERED: FAMOTIDINE 20 MG/2 ML VIAL IV STA (15:09)
[2022-04-18] MEDS ORDERED: IPRATROPIUM-ALBUTEROL 3 ML NEB INHALATION STA (15:09)
--- NOTE | 2022-04-18 15:38 | ED ---
General Adult HPI - General Chief complaint: Allergic Reaction Stated complaint: allergic reaction Time Seen by Provider: 04/18/22 15:07 Source: patient, EMS, RN notes reviewed, old records reviewed Mode of arrival: EMS Limitations: no limitations - History of Present Illness Initial comments: This is a 37-year-old male who presents emergency Department after having ALLERGIC reaction. Patient states she was out cutting wood and all of a sudden he started feeling of those so was closing off and having a difficult time breathing his face really hot his hands and his legs became red and swollen and he called EMS. When EMS arrived they were unable to live if he could given 0.3 of epi IM. Patient states symptoms have significantly improved so he still remains swollen and he feels as though his throat was mildly tight. Patient denies ever having had a symptom like this. Patient states it's possible being out there cutting wood he could've been stung but he did not see any bleeding or wasp that stung him. - Related Data Home Medications Medication Instructions Recorded Confirmed Buprenorphine HCl/Naloxone HCl 1 film SUBLINGUAL QAM 07/05/17 06/08/19 [Suboxone 8 mg-2 mg Sl Film] Buprenorphine HCl/Naloxone HCl 0.5 film SUBLINGUAL HS 06/08/19 06/08/19 [Suboxone 8 mg-2 mg Sl Film] Ibuprofen 800 mg PO TID PRN 06/08/19 06/08/19 Topiramate [Topamax] 50 mg PO BID 06/08/19 06/08/19 Varenicline [Chantix Starter Pack] 0.5 mg PO BID 06/08/19 06/08/19 Venlafaxine HCl [Effexor XR] 150 mg PO HS 06/08/19 06/08/19 cloNIDine HCL [Catapres] 0.2 mg PO HS 06/08/19 06/08/19 lamoTRIgine [LaMICtal] 150 mg PO BID 06/08/19 06/08/19 Previous Rx's Medication Instructions Recorded Cyclobenzaprine [Flexeril] 10 mg PO TID #12 tab 06/08/19 Ibuprofen [Motrin] 600 mg PO Q8HR PRN #20 tab 06/08/19 Hydrocodone/Acetaminophen [[place] 1 each PO Q6HR PRN #16 tab 08/11/19 5-325] Tobramycin [Tobrex 0.3% Ophth Soln] 1 drop LEFT EYE Q4HR #5 ml 09/13/20 EPINEPHrine (Auto Inject) [Epipen] 0.3 mg IM ONCE PRN #2 each 04/18/22 predniSONE [Deltasone] 40 mg PO DAILY #8 tab 04/18/22 Allergies Allergy/AdvReac Type Severity Reaction Status Date / Time cefepime Allergy seizure Verified 04/18/22 15:24 prochlorperazine edisylate Allergy SEIZURE Verified 04/18/22 15:24 [From Compazine] prochlorperazine maleate Allergy SEIZURE Verified 04/18/22 15:24 [From Compazine] Review of Systems ROS Statement: Those systems with pertinent positive or pertinent negative responses have been documented in the HPI. ROS Other: All systems not noted in ROS Statement are negative. Past Medical History Past Medical History: Asthma, GERD/Reflux, Hypertension, Seizure Disorder Additional Past Medical History / Comment(s): Left sternoclavicular joint osteomyelitis, treated at [facility] Pt states had quit heroin since 2015. lower back pain with arthritis, herniated discs, migraines , seizure with compazine as a child and once while in rehab in 2013.last seizure 5-6 months ago, adhd/anxiety, [place] lt ear(past perforated eardrum, migraines History of Any Multi-Drug Resistant Organisms: MRSA Date of last positivie culture/infection: 09/11/18 MDRO Source:: Left Arm Past Surgical History: No Surgical Hx Reported, Hernia Repair Additional Past Surgical History / Comment(s): HAD EAR SURGERY AN twice. Cystoscopy Past Anesthesia/Blood Transfusion Reactions: No Reported Reaction Past Psychological History: ADD/ADHD, Anxiety Smoking Status: Current every day smoker, Former smoker, Vaper Past Alcohol Use History: None Reported Past Drug Use History: Marijuana - Past Family History Father Family Medical History: Cancer Additional Family Medical History / Comment(s): FATHER HAd EMPHYSEMA AND STAGE IV LUNG CA. ALSO HAS AN AORTIC ANEURYSM. recently . Mother Family Medical History: Cancer Additional Family Medical History / Comment(s): BREAST CANCER. General Exam - General Exam Comments Initial Comments: GENERAL: Patient is well-developed and well-nourished. Patient is nontoxic and well- hydrated and is in mild distress. ENT: Neck is soft and supple. No significant lymphadenopathy is noted. Oropharynx is clear. Moist mucous membranes. Neck has full range of motion without eliciting any pain. EYES: The sclera were anicteric and conjunctiva were pink and moist. Extraocular movements were intact and pupils were equal round and reactive to light. Eyelids were unremarkable. PULMONARY: Slight expiratory wheezing CARDIOVASCULAR: There is a regular rate and rhythm without any murmurs gallops or rubs. ABDOMEN: Soft and nontender with normal bowel sounds. SKIN: Patient's hands are swollen and red patient's face is red ears are red and swollen. Patient has hives on his legs. Patient states all those areas are itching. Patient does not appear to have any rashes to his back or chest or abdomen area. NEUROLOGIC: Patient is alert and oriented x3. Cranial nerves II through XII are grossly intact. Motor and sensory are also intact. Normal speech, volume and content. Symmetrical smile. MUSCULOSKELETAL: Normal extremities with adequate strength and full range of motion. No lower extremity swelling or edema. No calf tenderness. LYMPHATICS: No significant lymphadenopathy is noted PSYCHIATRIC: Normal psychiatric evaluation. Limitations: no limitations Course Vital Signs 04/18/22 04/18/22 04/18/22 15:38 16:36 16:50 Temperature 98.1 F Pulse Rate 82 88 90 Respiratory 16 Rate Blood Pressure 137/91 O2 Sat by Pulse 100 Oximetry 04/18/22 17:22 Temperature Pulse Rate Respiratory 16 Rate Blood Pressure O2 Sat by Pulse Oximetry Medical Decision Making - Medical Decision Making Patient received Benadryl and Pepcid Solu-Medrol and albuterol the emergency department. He was feeling much better on the multiple times I followed up on the patient. Patient was having no more difficulty breathing or throat tightness. Patient's erythema and hives gone away almost completely Disposition Clinical Impression: Anaphylaxis Disposition: HOME SELF-CARE Instructions (If sedation given, give patient instructions): Anaphylaxis (ED) Additional Instructions: Patient should take Benadryl when necessary for hives rash or rash. Patient's take prednisone as prescribed. Patient should only use the EpiPen if he has difficulty breathing or throat tightening. If he does use the EpiPen he needs to come to the emergency department immediately or call 911 Prescriptions: predniSONE [Deltasone] 40 mg PO DAILY #8 tab EPINEPHrine (Auto Inject) [Epipen] 0.3 mg IM ONCE PRN #2 each PRN Reason: Difficulty breathing Is patient prescribed a controlled substance at d/c from ED?: No Referrals: Damon Elam Jr, [Doctor of Osteopathic Medicine] - 1-2 days Time of Disposition: 18:06
[2022-04-18 15:40] VITALS: RESP 16
[2022-04-18] MEDS ORDERED: ACETAMINOPHEN TAB 500 MG TAB PO STA (16:34)
[2022-04-18 18:30] VITALS: BP 126/82; PULSE 68; TEMP 98.6
== END 2022-04-18 18:28 | disposition home or self-care (01) ==
LOC: EC 15:07
DX: T78.2XXA Anaphylactic shock, unspecified, initial encounter (principal); J45.909 Unspecified asthma, uncomplicated; K21.9 Gastro-esophageal reflux disease without esophagitis; I10 Essential (primary) hypertension; F41.9 Anxiety disorder, unspecified; F17.290 Nicotine dependence, other tobacco product, uncomplicated; F12.90 Cannabis use, unspecified, uncomplicated; Z88.1 Allergy status to other antibiotic agents; Z88.8 Allergy status to other drugs, medicaments and biological substances; Z79.899 Other long term (current) drug therapy
CPT/HCPCS: 94640; 99284; 96374; 96375 ×2; J1200; J2930

== ENCOUNTER → 2023-01-15 | Outpatient (CLI) | payer OTHER ==
--- NOTE | 2023-01-15 18:13 | US ---
EXAMINATION TYPE: US scrotum with doppler. Grayscale and color Doppler Duplex imaging performed of t jone scrotum. DATE OF EXAM: 01/15/2023 COMPARISON: NONE CLINICAL INDICATION: Male, 37 years old with history of N50.82; left side pain EXAM MEASUREMENTS: TESTICLES: Right Testicle: 4.4 x 2.2 x 2.9 cm Left Testicle: 3.8 x 1.9 x 3.0 cm EPIDIDYMIS HEAD: Right Epididymis: .9 x .6 x 1.3 cm Left Epididymis: 1.0 x 1.1 x 1.4 cm heterogenous Doppler performed to assess for testicular vascularity; good bilateral color flow and waveforms are s een. There is no evidence of testicular torsion. Presence of hydroceles: no Presence of varicoceles: Prominent vascularity visualized. Left varicocele identified. IMPRESSION: 1. No evidence of testicular torsion or intratesticular mass. 2. Heterogenous appearance to the left epididymis with increased color flow suggestive of epididymiti s. 3. Left varicocele.
== END | disposition home or self-care (01) ==
LOC: RADUSWWP 16:09
PROVIDERS: ATTEND Family Medicine
DX: I86.1 Scrotal varices (principal); N50.89 Other specified disorders of the male genital organs
CPT/HCPCS: 76870; 93975

== ENCOUNTER 2023-03-13 14:49 | Emergency (ER) | payer OTHER ==
--- NOTE | 2023-03-13 16:41 | ED ---
General Adult HPI - General Source: patient Mode of arrival: ambulatory Limitations: no limitations <Liz Oleary - Last Filed: 03/13/23 16:39> <Olivai Vick - Last Filed: 03/13/23 21:03> - General Chief complaint: Neuro Symptoms/Deficit Stated complaint: Right Side Numbness - History of Present Illness Initial comments: 37-year-old male presents to the emergency department chief complaint of right sided posterior head numbness which started last night. He reports no other right-sided weakness or headache. He also admits to associated dizziness that started around the same time. Patient has history of IV drug abuse. (Liz Oleary) 57-year-old male presenting with chief complaint of numbness to the right side of the head. This started around 10 PM last night. Patient denies any pain. No headache or previous head or neck injury. No nausea, vomiting, dizziness. No weakness. Patient states that they recently decreased his Suboxone dosing and he was also recently started on Effexor and Lamictal. No chest pain, difficulty breathing, palpitations, abdominal pain, recent URI-like symptoms. A dmits to smoking tobacco 1 pack of cigarettes per day, also admits to smoking marijuana. Previous IV drug use. Denies alcohol consumption. (Olivia Vick) - Related Data Home Medications Medication Instructions Recorded Confirmed Ibuprofen 800 mg PO TID PRN 06/08/19 03/13/23 Buprenorphine HCl/Naloxone HCl 1 film SL BID 03/13/23 03/13/23 [Suboxone 2 mg-0.5 mg Sl Film] Venlafaxine HCl [Effexor XR] 75 mg PO DAILY 03/13/23 03/13/23 lamoTRIgine [LaMICtal] 25 mg PO BID 03/13/23 03/13/23 Allergies Allergy/AdvReac Type Severity Reaction Status Date / Time cefepime Allergy seizure Verified 03/13/23 19:19 prochlorperazine edisylate Allergy SEIZURE Verified 03/13/23 19:19 [From Compazine] prochlorperazine maleate Allergy SEIZURE Verified 03/13/23 19:19 [From Compazine] Review of Systems ROS Other: All systems not noted in ROS Statement are negative. <Liz Oleary - Last Filed: 03/13/23 16:39> ROS Other: All systems not noted in ROS Statement are negative. <Olivia Vick - Last Filed: 03/13/23 21:03> ROS Statement: Those systems with pertinent positive or pertinent negative responses have been documented in the HPI. Past Medical History Past Medical History: Asthma, GERD/Reflux, Hypertension, Seizure Disorder Additional Past Medical History / Comment(s): Left sternoclavicular joint osteomyelitis, treated at Pt states had quit heroin since 2016. lower back pain with arthritis, herniated discs, migraines , seizure with compazine as a child and once while in rehab in 2013.last seizure 5-6 months ago, adhd/anxiety, [facility] ear(past perforated eardrum, migraines History of Any Multi-Drug Resistant Organisms: MRSA Date of last positivie culture/infection: 09/11/18 MDRO Source:: Left Arm Past Surgical History: No Surgical Hx Reported, Hernia Repair Additional Past Surgical History / Comment(s): HAD EAR SURGERY AN twice. Cystoscopy Past Anesthesia/Blood Transfusion Reactions: No Reported Reaction Past Psychological History: ADD/ADHD, Anxiety Smoking Status: Current every day smoker, Former smoker, Vaper Past Alcohol Use History: None Reported Past Drug Use History: Marijuana, Prescription Drug Abuse - Past Family History Father Family Medical History: Cancer Additional Family Medical History / Comment(s): FATHER HAd EMPHYSEMA AND STAGE IV LUNG CA. ALSO HAS AN AORTIC ANEURYSM. recently . Mother Family Medical History: Cancer Additional Family Medical History / Comment(s): BREAST CANCER. <Liz Oleary - Last Filed: 03/13/23 16:39> General Exam Limitations: no limitations <Liz Oleary - Last Filed: 03/13/23 16:39> Limitations: no limitations General appearance: alert, in no apparent distress Head exam: Present: atraumatic, normocephalic, normal inspection Eye exam: Present: normal appearance, PERRL, EOMI. Absent: scleral icterus, conjunctival injection, periorbital swelling Neck exam: Present: normal inspection, full ROM Respiratory exam: Present: normal lung sounds bilaterally. Absent: respiratory distress, wheezes, rales, rhonchi, stridor Cardiovascular Exam: Present: regular rate, normal rhythm, normal heart sounds. Absent: systolic murmur, diastolic murmur, rubs, gallop, clicks Neurological exam: Present: alert, oriented X3, CN II-XII intact Expanded Patient oriented to: Present: person, place, time Speech: Present: fluid speech Cranial nerves: EOM's Intact: Normal Cerebellar function: Finger to Nose: Normal, Heel to [place]: Normal Motor strength exam: RUE: 5, LUE: 5, RLE: 5, LLE: 5 Eye Response: (4) open spontaneously Motor Response: (6) obeys commands Verbal Response: (5) oriented Yang Total: 15 Psychiatric exam: Present: normal affect, normal mood Skin exam: Present: warm, dry, intact, normal color. Absent: rash <Olivia Vick - Last Filed: 03/13/23 21:03> - General Exam Comments Initial Comments: Visual Physical Exam Vital signs reviewed General: Well-appearing, nontoxic, no acute distress. Head: Normocephalic, atraumatic Eyes: PERRLA, EOMI ENT: Airway patent Chest: Nonlabored breathing Skin: No visual rash, normal skin tone Neuro: Alert and oriented 3 Musculoskeletal: No gross abnormalities (Liz Oleary) Course Vital Signs 03/13/23 03/13/23 15:34 19:28 Temperature 98 F 98.4 F Pulse Rate 100 74 Respiratory 20 18 Rate Blood Pressure 152/84 143/84 O2 Sat by Pulse 98 100 Oximetry EKG Findings - EKG Comments: EKG Findings:: Sinus rhythm ventricular rate 87. [place] interval 137. QRS 92. QT 347. QTC 391. no ischemic changes. Normal axis. <Olivia Vick - Last Filed: 03/13/23 21:03> Medical Decision Making <Liz Oleary - Last Filed: 03/13/23 16:39> - Lab Data Result diagrams: 03/13/23 19:07 03/13/23 19:07 <Olivia Vikc - Last Filed: 03/13/23 21:03> - Medical Decision Making I performed a quick note portion of this note. Electronically signed Liz Oleary PA-C (Liz Oleary) Was pt. sent in by a medical professional or institution ([facility], [employer], urgent care, hospital, or [facility]...) When possible be specific @ -No Did you speak to anyone other than the patient for history (EMS, parent, family, police, friend...)? What history was obtained from this source @ -No Did you review nursing and triage notes (agree or disagree)? Why? @ -I reviewed the triage note and agree with the exception that the patient is having no slurred speech. Patient and family deny slurred speech. During each of my interactions with patient he displays no signs of slurred speech. Were old charts reviewed (outside hosp., previous admission, EMS record, old EKG, old radiological studies, urgent care reports/EKG's, [facility] records)? Report findings @ -No old charts were reviewed Differential Diagnosis (chest pain, altered mental status, abdominal pain women, abdominal pain men, vaginal bleeding, weakness, fever, dyspnea, syncope, headache, dizziness, GI bleed, back pain, seizure, CVA, palpatations, mental health, musculoskeletal)? @ -Differential CVA Ischemic stroke, hemorrhagic stroke, brain tumor, atypical migraine, Wernicke's encephalopathy, seizure, multiple sclerosis, meningitis, encephalitis, hypoglycemia, Guillain-Alonso, electrolytes disturbance, myasthenia gravis.... This is not meant to be an all-inclusive list EKG interpreted by me (3pts min.). @ -Sinus rhythm ventricular rate 87. [place] interval 137. QRS 92. QT 347. QTC 391. No ischemic changes. Normal axis. X-rays interpreted by me (1pt min.). @ -Chest X-rays unremarkable CT interpreted by me (1pt min.). @ -CT shows no acute intracranial process U/S interpreted by me (1pt. min.). @ -None done What testing was considered but not performed or refused? (CT, X-rays, U/S, labs)? Why? @ -None What meds were considered but not given or refused? Why? @ -None Did you discuss the management of the patient with other professionals (professionals i.e. , PA, [employer] HOME INSPECTOR, lab, RT, psych nurse, social worker health services, food service ambassador, teacher, ground defence officer, renal case manager)? Give summary @ -No Was smoking cessation discussed for >3mins.? @ -No Was critical care preformed (if so, how long)? @ -No Were there social determinants of health that impacted care today? How? (Homelessness, low income, unemployed, alcoholism, drug addiction, transportation, low edu. Level, literacy, decrease access to med. care, usp, rehab)? @ -No Was there de-escalation of care discussed even if they declined (Discuss DNR or withdrawal of care, Hospice)? DNR status @ -No What co-morbidities impacted this encounter? (DM, HTN, Smoking, COPD, CAD, Cancer, CVA, ARF, Chemo, Hep., AIDS, mental health diagnosis, sleep apnea, morbid obesity)? @ -Previous drug use Was patient admitted / discharged? Hospital course, mention meds given and route, prescriptions, significant lab abnormalities, going to OR and other pertinent info. @ -37-year-old male presenting with chief complaint of numbness to the right side of the head that started last night. States that it seems to be somewhat improved today but is not completely gone. He notes that he recently had his Suboxone dose decreased. He also notes that he has been under a lot of stress in his personal life lately. Physical examination is unremarkable, no focal neurological deficits, GCS is 15. Negative CT of the brain and chest x-ray. EKG shows no acute findings. Lab work shows mild transaminitis. Negative tr oponin. Creatinine kinase 177. His urine is positive for amphetamines, methamphetamines, benzodiazepines, marijuana. Patient eloped before formal discharge discussion. He should follow-up with his PCP and report back to ER with any new or worsening symptoms. I discussed this case with my attending Dr. Undiagnosed new problem with uncertain prognosis? @ -No Drug Therapy requiring intensive monitoring for toxicity (Heparin, Nitro, Insulin, Cardizem)? @ -No Were any procedures done? @ -No Diagnosis/symptom? @ -Medication side effect, numbness and tingling Acute, or Chronic, or Acute on Chronic? @ -Acute Uncomplicated (without systemic symptoms) or Complicated (systemic symptoms)? @ -Uncomplicated Side effects of treatment? @ -No Exacerbation, Progression, or Severe Exacerbation? @ -No Poses a threat to life or bodily function? How? (Chest pain, USA, DC, pneumonia, PE, COPD, DKA, ARF, appy, cholecystitis, CVA, Diverticulitis, Homicidal, Suicida l, threat to staff... and all critical care pts) @ -low Likelihood (Dior Vicke) - Lab Data Lab Results 03/13/23 03/13/23 03/13/23 Range/Units 19:07 19:07 19:07 WBC 4.5 (3.8-10.6) k/uL RBC 5.02 (4.30-5.90) m/uL Hgb 14.6 (13.0-17.5) gm/dL Hct 42.9 (39.0-53.0) % MCV 85.5 (80.0-100.0) fL MCH 29.1 (25.0-35.0) pg MCHC 34.0 (31.0-37.0) g/dL RDW 13.1 (11.5-15.5) % Plt Count 233 (150-450) k/uL MPV 7.5 Neutrophils % 62 % Lymphocytes % 24 % Monocytes % 6 % Eosinophils % 6 % Basophils % 0 % Neutrophils # 2.8 (1.3-7.7) k/uL Lymphocytes # 1.1 (1.0-4.8) k/uL Monocytes # 0.3 (0-1.0) k/uL Eosinophils # 0.3 (0-0.7) k/uL Basophils # 0.0 (0-0.2) k/uL PT 9.6 (9.0-12.0) sec INR 0.9 (<1.2) APTT 23.5 (22.0-30.0) sec Sodium 137 (137-145) mmol/L Potassium 4.3 (3.5-5.1) mmol/L Chloride 100 (98-107) mmol/L Carbon Dioxide 30 (22-30) mmol/L Anion Gap 7 mmol/L BUN 16 (9-20) mg/dL Creatinine 0.95 (0.66-1.25) mg/dL Est GFR (CKD-EPI)AfAm >90 (>60 ml/min/1.73 sqM) Est GFR (CKD-EPI)NonAf >90 (>60 ml/min/1.73 sqM) Glucose 92 (74-99) mg/dL Calcium 9.4 (8.4-10.2) mg/dL Total Bilirubin 0.5 (0.2-1.3) mg/dL AST 61 H (17-59) U/L ALT 101 H (4-49) U/L Alkaline Phosphatase 93 (38-126) U/L Creatine Kinase 177 H (55-170) U/L Troponin I (0.000-0.034) ng/mL Total Protein 7.6 (6.3-8.2) g/dL Albumin 4.5 (3.5-5.0) g/dL Urine Color Urine Appearance (Clear) Urine pH (5.0-8.0) Ur Specific [place] (1.001-1.035) Urine Protein (Negative) Urine Glucose (UA) (Negative) Urine Ketones (Negative) Urine Blood (Negative) Urine Nitrite (Negative) Urine Bilirubin (Negative) Urine Urobilinogen (<2.0) mg/dL Ur Leukocyte Esterase (Negative) Urine RBC (0-5) /hpf Urine WBC (0-5) /hpf Ur Squamous Epith Cells (0-4) /hpf Urine Opiates Screen (NotDetected) Ur Oxycodone Screen (NotDetected) Urine Methadone Screen (NotDetected) Ur Propoxyphene Screen (NotDetected) Ur Barbiturates Screen (NotDetected) U Tricyclic Antidepress (NotDetected) Ur Phencyclidine Scrn (NotDetected) Ur Amphetamines Screen (NotDetected) U Methamphetamines Scrn (NotDetected) U Benzodiazepines Scrn (NotDetected) Urine Cocaine Screen (NotDetected) U Marijuana (THC) Screen (NotDetected) 03/13/23 03/13/23 Range/Units 19:07 20:06 WBC (3.8-10.6) k/uL RBC (4.30-5.90) m/uL Hgb (13.0-17.5) gm/dL Hct (39.0-53.0) % MCV (80.0-100.0) fL MCH (25.0-35.0) pg MCHC (31.0-37.0) g/dL RDW (11.5-15.5) % Plt Count (150-450) k/uL MPV Neutrophils % % Lymphocytes % % Monocytes % % Eosinophils % % Basophils % % Neutrophils # (1.3-7.7) k/uL Lymphocytes # (1.0-4.8) k/uL Monocytes # (0-1.0) k/uL Eosinophils # (0-0.7) k/uL Basophils # (0-0.2) k/uL PT (9.0-12.0) sec INR (<1.2) APTT (22.0-30.0) sec Sodium (137-145) mmol/L Potassium (3.5-5.1) mmol/L Chloride (98-107) mmol/L Carbon Dioxide (22-30) mmol/L Anion Gap mmol/L BUN (9-20) mg/dL Creatinine (0.66-1.25) mg/dL Est GFR (CKD-EPI)AfAm (>60 ml/min/1.73 sqM) Est GFR (CKD-EPI)NonAf (>60 ml/min/1.73 sqM) Glucose (74-99) mg/dL Calcium (8.4-10.2) mg/dL Total Bilirubin (0.2-1.3) mg/dL AST (17-59) U/L ALT (4-49) U/L Alkaline Phosphatase (38-126) U/L Creatine Kinase (55-170) U/L Troponin I <0.012 (0.000-0.034) ng/mL Total Protein (6.3-8.2) g/dL Albumin (3.5-5.0) g/dL Urine Color Yellow Urine Appearance Cloudy (Clear) Urine pH 7.5 (5.0-8.0) Ur Specific [place] 1.018 (1.001-1.035) Urine Protein 1+ H (Negative) Urine Glucose (UA) Negative (Negative) Urine Ketones Negative (Negative) Urine Blood Negative (Negative) Urine Nitrite Negative (Negative) Urine Bilirubin Negative (Negative) Urine Urobilinogen <2.0 (<2.0) mg/dL Ur Leukocyte Esterase Negative (Negative) Urine RBC 2 (0-5) /hpf Urine WBC 3 (0-5) /hpf Ur Squamous Epith Cells <1 (0-4) /hpf Urine Opiates Screen Not Detected (NotDetected) Ur Oxycodone Screen Not Detected (NotDetected) Urine Methadone Screen Not Detected (NotDetected) Ur Propoxyphene Screen Not Detected (NotDetected) Ur Barbiturates Screen Not Detected (NotDetected) U Tricyclic Antidepress Not Detected (NotDetected) Ur Phencyclidine Scrn Not Detected (NotDetected) Ur Amphetamines Screen Detected H (NotDetected) U Methamphetamines Scrn Detected H (NotDetected) U Benzodiazepines Scrn Detected H (NotDetected) Urine Cocaine Screen Not Detected (NotDetected) U Marijuana (THC) Screen Detected H (NotDetected) Disposition <Liz Oleary - Last Filed: 03/13/23 16:39> Is patient prescribed a controlled substance at d/c from ED?: No Time of Disposition: 20:47 <Olivia Vick - Last Filed: 03/13/23 21:03> Clinical Impression: Medication side effect Disposition: HOME SELF-CARE Condition: Fair Instructions (If sedation given, give patient instructions): Buprenorphine/N aloxone (Into the mouth) Additional Instructions: Follow-up with PCP. Report back to ER with any new or worsening symptoms. Take Suboxone as prescribed Referrals: Damon Elam Jr, DO [Primary Care Provider] - 1-2 days
--- NOTE | 2023-03-13 16:55 | CT ---
EXAMINATION TYPE: CT brain wo con CT DLP: 1125.4 mGycm, Automated exposure control for dose reduction was used. DATE OF EXAM: 03/13/2023 4:48 PM COMPARISON: . CLINICAL INDICATION:Male, 37 years old with history of Neuro deficit, acute, stroke suspected, RT kimberly e head numbness TECHNIQUE: Brain: Axial CT images of the brain were obtained with coronal and sagittal reformats created and rev iewed. Contrast used: None. Oral contrast used: None. FINDINGS: Brain: Extra-axial spaces: No abnormal extra-axial fluid collections. Ventricular system: Within normal limits Cerebral parenchyma: No acute intraparenchymal hemorrhage or mass effect. The edmonds-white junction is well differentiated. Cerebellum: Unremarkable. Mass effect: No evidence of midline shift. Intracranial vasculature: unremarkable Soft tissues: Normal. Calvarium/osseous structures: No depressed skull fracture. Paranasal sinuses and mastoid air cells: Mild scattered paranasal sinus disease. Visualized orbits: Orbital contents are intact. IMPRESSION: No acute intracranial process.
--- NOTE | 2023-03-13 17:26 | XR ---
EXAMINATION TYPE: XR chest 2V DATE OF EXAM: 03/13/2023 5:05 PM COMPARISON: None TECHNIQUE: XR chest 2V Frontal and lateral views of the chest. CLINICAL INDICATION:Male, 37 years old with history of altered mental status; FINDINGS: Lungs/Pleura: There is no evidence of pleural effusion, focal consolidation, or pneumothorax. Pulmonary vascularity: Unremarkable. Heart/mediastinum: Cardiomediastinal silhouette is unremarkable. Musculoskeletal: No acute osseous pathology. IMPRESSION: No acute cardiopulmonary disease/process.
[2023-03-13 19:22] LABS: Basophils % (A) 0 %; Eosinophils # (A) 0.3 k/uL (0-0.7); Eosinophils % (A) 6 %; HCT 42.9 % (39.0-53.0); HGB 14.6 gm/dL (13.0-17.5); Lymphocytes # (A) 1.1 k/uL (1.0-4.8); Lymphocytes % (A) 24 %; MCH 29.1 pg (25.0-35.0); MCV 85.5 fL (80.0-100.0); Mean Platelet Volume 7.5; Monocytes # (A) 0.3 k/uL (0-1.0); Monocytes % (A) 6 %; Neutrophils # (A) 2.8 k/uL (1.3-7.7); Neutrophils % (A) 62 %; Platelet Count 233 k/uL (150-450); RBC 5.02 m/uL (4.30-5.90); RDW 13.1 % (11.5-15.5); WBC 4.5 k/uL (3.8-10.6)
[2023-03-13 19:30] VITALS: BP 143/84; PULSE 74; RESP 18; TEMP 98.4
[2023-03-13 19:33] LABS: INR 0.9 (<1.2); Partial Thromboplastin Time 23.5 sec (22.0-30.0); Prothrombin Time 9.6 sec (9.0-12.0)
[2023-03-13 19:35] LABS: ALT 101 U/L (4-49); AST 61 U/L (17-59); African American GFR (CKD) >90 (>60 ml/min/1.73 sqM); Albumin 4.5 g/dL (3.5-5.0); Alkaline Phosphatase 93 U/L (38-126); Anion Gap 7 mmol/L; Blood Urea Nitrogen 16 mg/dL (9-20); Calcium 9.4 mg/dL (8.4-10.2); Carbon Dioxide 30 mmol/L (22-30); Chloride 100 mmol/L (98-107); Creatine Kinase 177 U/L (55-170); Glucose 92 mg/dL (74-99); Non-African American GFR(CKD) >90 (>60 ml/min/1.73 sqM); Potassium 4.3 mmol/L (3.5-5.1); Sodium 137 mmol/L (137-145); Total Bilirubin 0.5 mg/dL (0.2-1.3); Total Protein 7.6 g/dL (6.3-8.2)
[2023-03-13 20:32] LABS: Cocaine Screen,Urine Not Detected (NotDetected); Opiate Screen,Urine Not Detected (NotDetected); Phencyclidine Screen,Urine Not Detected (NotDetected); Urn Cannabinoid Scrn Detected (NotDetected)
[2023-03-13 20:33] LABS: Amphetamine Screen,Urine Detected (NotDetected); Barbiturate Screen,Urine Not Detected (NotDetected); Benzodiazepines Screen,Urine Detected (NotDetected); Methadone Screen, Urine Not Detected (NotDetected); Oxycodone Screen, Urine Not Detected (NotDetected); Tricyclic Antidepressant,Urine Not Detected (NotDetected)
[2023-03-13 20:37] LABS: Appearance,Urine Cloudy (Clear); Bilirubin,Urine Negative (Negative); Blood,Urine Negative (Negative); Color,Urine Yellow; Glucose,Urine (UA) Negative (Negative); Ketones,Urine Negative (Negative); Leukocyte Esterase,Urine Negative (Negative); Nitrite,Urine Negative (Negative); PH, Urine 7.5 (5.0-8.0); Protein,Urine 1+ (Negative); RBC,Urine 2 /hpf (0-5); Specific Gravity,Urine 1.018 (1.001-1.035); Squamous Epithelial Cell,Urine <1 /hpf (0-4); Urobilinogen,Urine <2.0 mg/dL (<2.0); WBC,Urine 3 /hpf (0-5)
== END 2023-03-13 20:48 | disposition home or self-care (01) ==
LOC: EC 14:49
DX: R51.9 Headache, unspecified (principal); T43.215A Adverse effect of selective serotonin and norepinephrine reuptake inhibitors, initial encounter; J45.909 Unspecified asthma, uncomplicated; I10 Essential (primary) hypertension; F17.290 Nicotine dependence, other tobacco product, uncomplicated; F12.90 Cannabis use, unspecified, uncomplicated; Z88.6 Allergy status to analgesic agent; Z88.8 Allergy status to other drugs, medicaments and biological substances; Z79.899 Other long term (current) drug therapy
CPT/HCPCS: 36415; 70450; 71046; 80053; 80306; 81001; 82550; 84484; 85025; 85610; 85730; 93005; 99284

== ENCOUNTER 2023-11-18 09:48 | Emergency (ER) | payer OTHER ==
[2023-11-18 10:08] VITALS: TEMP 98.4
--- NOTE | 2023-11-18 10:12 | ED ---
Abdominal Pain HPI - General Chief Complaint: Abdominal Pain Stated Complaint: Abdominal Pain Time Seen by Provider: 11/18/23 10:11 Source: patient, RN notes reviewed Mode of arrival: ambulatory Limitations: no limitations - History of Present Illness Initial Comments: Patient is a 38-year-old male presenting to the ER with a chief complaint of lower left quadrant abdominal pain with radiation to left testicle. He states has been experiencing this for about a year. He states his pain radiates into his left testicle. States the pain increases with urination/bowel movements. Denies any constipation/diarrhea. Denies any concern of STD or penile d ischarge. He has tried taking Klonopin without relief. Denies any fevers but does endorse recent nausea due to pain. Denies any scrotal swelling or redness. He does admit to some rectal pain. Denies receptive anal intercourse. He describes it as a achy pain that radiates to his back. No history of kidney stones. Denies any headache, cough, congestion, chest pain, shortness of breath, peripheral edema. - Related Data Home Medications Medication Instructions Recorded Confirmed Ibuprofen 800 mg PO QID PRN 06/08/19 11/18/23 Buprenorphine HCl/Naloxone HCl 1 film SL DAILY@1300 11/18/23 11/18/23 [Suboxone 4 mg-1 mg Sl Film] Buprenorphine HCl/Naloxone HCl 1 film SL DAILY@0500 11/18/23 11/18/23 [Suboxone 8 mg-2 mg Sl Film] Butalb/APAP/Caff 50-325-40Mg 1 tab PO Q4H PRN 11/18/23 11/18/23 [Fioricet 50-325-40] Naloxone HCl [Narcan] 4 mg NASAL DIRECTED PRN 11/18/23 11/18/23 Previous Rx's Medication Instructions Recorded Doxycycline [Vibramycin] 100 mg PO BID 14 Days #28 capsule 11/18/23 Allergies Allergy/AdvReac Type Severity Reaction Status Date / Time cefepime Allergy seizure Verified 11/18/23 12:36 prochlorperazine edisylate Allergy SEIZURE Verified 11/18/23 12:36 [From Compazine] prochlorperazine maleate Allergy SEIZURE Verified 11/18/23 12:36 [From Compazine] Review of Systems ROS Statement: Those systems with pertinent positive or pertinent negative responses have been documented in the HPI. ROS Other: All systems not noted in ROS Statement are negative. Past Medical History Past Medical History: Asthma, GERD/Reflux, Hypertension, Seizure Disorder Additional Past Medical History / Comment(s): Left sternoclavicular joint osteomyelitis, treated at 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 lower back pain with arthritis, herniated discs, migraines , seizure with compazine as a child and once while in rehab in 2013.last seizure 5-6 months ago, adhd/anxiety, [place] lt ear(past perforated eardrum, migraines History of Any Multi-Drug Resistant Organisms: MRSA Date of last positivie culture/infection: 09/11/18 MDRO Source:: Left Arm Past Surgical History: No Surgical Hx Reported, Hernia Repair Additional Past Surgical History / Comment(s): HAD EAR SURGERY AN INFANT twice. Cystoscopy Past Anesthesia/Blood Transfusion Reactions: No Reported Reaction Past Psychological History: ADD/ADHD, Anxiety Smoking Status: Current every day smoker, Vaper Past Alcohol Use History: None Reported Past Drug Use History: Marijuana, Prescription Drug Abuse - Past Family History Father Family Medical History: Cancer Additional Family Medical History / Comment(s): FATHER HAd EMPHYSEMA AND STAGE IV LUNG CA. ALSO HAS AN AORTIC ANEURYSM. recently . Mother Family Medical History: Cancer Additional Family Medical History / Comment(s): BREAST CANCER. General Exam Limitations: no limitations General appearance: alert, in no apparent distress Head exam: Present: atraumatic, normocephalic, normal inspection Eye exam: Present: normal appearance, PERRL, EOMI. Absent: scleral icterus, conjunctival injection, periorbital swelling Respiratory exam: Present: normal lung sounds bilaterally. Absent: respiratory distress, wheezes, rales, rhonchi, stridor Cardiovascular Exam: Present: regular rate, normal rhythm, normal heart sounds. Absent: systolic murmur, diastolic murmur, rubs, gallop, clicks GI/Abdominal exam: Present: soft, tenderness (Left lower quadrant), normal bowel sounds. Absent: distended, guarding, rebound, rigid exam: Present: testicular tenderness (left), circumcision, other (Left testicle higher compared to right. Tenderness on invagination of left. buldge to left inguinal region superior to left testicle) Neurological exam: Present: alert, oriented X3, CN II-XII intact Psychiatric exam: Present: normal affect, normal mood Skin exam: Present: warm, dry, intact, normal color. Absent: rash Course Vital Signs 11/18/23 11/18/23 11/18/23 09:50 11:52 14:48 Temperature 98.4 F Pulse Rate 69 90 69 Respiratory 20 18 16 Rate Blood Pressure 161/99 143/86 136/72 O2 Sat by Pulse 99 99 98 Oximetry - Reevaluation(s) Reevaluation #1: 11/18/23 11:52 Scrotal exam chaperoned by Mary Cruz RN 11/18/23 13:08 Nurse advised by US game technician that patient stated her recently tested positive for hepatitis C and he has not followed up outpatient yet. Medical Decision Making - Medical Decision Making Was pt. sent in by a medical professional or institution (, PA, CHORAL TEACHER, urgent care, hospital, or care home...) When possible be specific @ -No Did you speak to anyone other than the patient for history (EMS, parent, family, police, friend...)? What history was obtained from this source @ -No Did you review nursing and triage notes (agree or disagree)? Why? @ -I reviewed and agree with nursing and triage notes Were old charts reviewed (outside hosp., previous admission, EMS record, old EKG, old radiological studies, urgent care reports/EKG's, care home records)? Report findings @ -No old charts were reviewed Differential Diagnosis (chest pain, altered mental status, abdominal pain women, abdominal pain men, vaginal bleeding, weakness, fever, dyspnea, syncope, headache, dizziness, GI bleed, back pain, seizure, CVA, palpatations, mental health, musculoskeletal)? @ -Differential Abdominal Pain Men: Appendicitis, cholecystitis, diverticulosis, ischemic bowel, pancreatitis, hepatitis, UTI, gastroenteritis, AAA, incarcerated hernia, bowel obstruction, constipation, inflammatory bowel, h epatitis, peptic ulcer disease, splenic infarction, perforated viscus, testicular torsion, this is not meant to be an all-inclusive list EKG interpreted by me (3pts min.). @ -None X-rays interpreted by me (1pt min.). @ -None done CT interpreted by me (1pt min.). @ -None done U/S interpreted by me (1pt. min.). @ -Scrotal ultrasound significant for enlargement of bilateral epididymis correlated with epididymitis. Small bilateral varicoceles. What testing was considered but not performed or refused? (CT, X-rays, U/S, labs)? Why? @ -None What meds were considered but not given or refused? Why? @ -None Did you discuss the management of the patient with other professionals (professionals i.e. ., PA, CHORAL TEACHER, lab, RT, psych nurse, health care social worker, reinforcing steel machine operator, teacher, telecommunications officer, case picker)? Give summary @ -No Was smoking cessation discussed for >3mins.? @ -I discussed smoking cessation for greater than 3 minutes. The risk of smoking were discussed with the patient including but not limited to risks of cancer, stroke, coronary artery disease and COPD. Also discussed with patient were multiple methods of quitting smoking. Lastly we discussed the financial cost of smoking. Was critical care preformed (if so, how long)? @ -No Were there social determinants of health that impacted care today? How? (Homelessness, low income, unemployed, alcoholism, drug addiction, transportation, low edu. Level, literacy, decrease access to med. care, group home, rehab)? @ -No Was there de-escalation of care discussed even if they declined (Discuss DNR or withdrawal of care, Hospice)? DNR status @ -No What co-morbidities impacted this encounter? (DM, HTN, Smoking, COPD, CAD, Cancer, CVA, ARF, Chemo, Hep., AIDS, mental health diagnosis, sleep apnea, morbid obesity)? @ -History of heroin use and currently on Suboxone Was patient admitted / discharged? Hospital course, mention meds given and route, prescriptions, significant lab abnormalities, going to OR and other pertinent info. @ -Discharge. Patient is a 38-year-old male presenting to the ER with a chief complaint of left lower quadrant abdominal pain with radiation to left testicle. History and physical exam completed. Vitals stable. Patient no signs of acute distress and nontoxic-appearing. Testicular exam chaperoned by Mary Cruz RN. Exam significant for retracting left testicle towards groin. Tenderness to invagination. No erythema, penile discharge or rashes present. Labs obtained unimpressive. Urine without signs of infection. Gonorrhea/chlamydia/trichomonas testing pending. Scrotal ultrasound significant for bilateral epididymitis. Patient received Rocephin in ER and prescribed 14- day course of doxycycline. Advise follow-up with urology, referral given. Advised completion of full course of antibiotics and [id number] Tylenol and Motrin for pain control. Strict return parameters discussed. Patient discharged stable condition with follow-up to urology/PCP. Patient and family, at bedside, expressed verbal understanding and agreement with care plan. Case discussed with ED attending, Dr. Mohamud. Undiagnosed new problem with uncertain prognosis? @ -No Drug Therapy requiring intensive monitoring for toxicity (Heparin, Nitro, Insulin, Cardizem)? @ -No Were any procedures done? @ -No Diagnosis/symptom? @ -Bilateral epididymitis Acute, or Chronic, or Acute on Chronic? @ -Acute Uncomplicated (without systemic symptoms) or Complicated (systemic symptoms)? @ -Uncomplicated Side effects of treatment? @ -No Exacerbation, Progression, or Severe Exacerbation? @ -No Poses a threat to life or bodily function? How? (Chest pain, [place], [place], pneumonia, PE, COPD, DKA, ARF, appy, cholecystitis, CVA, Diverticulitis, Homicidal, Suicidal, threat to staff... and all critical care pts) @ -Possibly, epididymitis can lead to infertility. - Lab Data Result diagrams: 11/18/23 10:40 11/18/23 10:40 Lab Results 11/18/23 11/18/23 11/18/23 Range/Units 10:40 10:40 10:40 WBC 4.9 (3.8-10.6) k/uL RBC 5.24 (4.30-5.90) m/uL Hgb 14.5 (13.0-17.5) gm/dL Hct 45.3 (39.0-53.0) % MCV 86.5 (80.0-100.0) fL MCH 27.7 (25.0-35.0) pg MCHC 32.1 (31.0-37.0) g/dL RDW 12.9 (11.5-15.5) % Plt Count 264 (150-450) k/uL MPV 7.1 Neutrophils % 61 % Lymphocytes % 23 % Monocytes % 6 % Eosinophils % 7 % Basophils % 1 % Neutrophils # 3.0 (1.3-7.7) k/uL Lymphocytes # 1.1 (1.0-4.8) k/uL Monocytes # 0.3 (0-1.0) k/uL Eosinophils # 0.3 (0-0.7) k/uL Basophils # 0.1 (0-0.2) k/uL Sodium 139 (137-145) mmol/L Potassium 4.1 (3.5-5.1) mmol/L Chloride 105 (98-107) mmol/L Carbon Dioxide 28 (22-30) mmol/L Anion Gap 6 mmol/L BUN 20 (9-20) mg/dL Creatinine 0.92 (0.66-1.25) mg/dL Est GFR (CKD-EPI)AfAm >90 (>60 ml/min/1.73 sqM) Est GFR (CKD-EPI)NonAf >90 (>60 ml/min/1.73 sqM) Glucose 101 H (74-99) mg/dL Plasma Lactic Acid Erik (0.7-2.0) mmol/L Calcium 9.1 (8.4-10.2) mg/dL Total Bilirubin 0.5 (0.2-1.3) mg/dL AST 46 (17-59) U/L ALT 90 H (4-49) U/L Alkaline Phosphatase 107 (38-126) U/L Total Protein 7.2 (6.3-8.2) g/dL Albumin 4.1 (3.5-5.0) g/dL Amylase 46 (30-110) U/L Lipase 65 (23-300) U/L Urine Color Colorless Urine Appearance Cloudy (Clear) Urine pH 7.0 (5.0-8.0) Ur Specific [place] 1.019 (1.001-1.035) Urine Protein Negative (Negative) Urine Glucose (UA) Negative (Negative) Urine Ketones Negative (Negative) Urine Blood Negative (Negative) Urine Nitrite Negative (Negative) Urine Bilirubin Negative (Negative) Urine Urobilinogen <2.0 (<2.0) mg/dL Ur Leukocyte Esterase Trace H (Negative) Urine RBC 2 (0-5) /hpf Urine WBC 4 (0-5) /hpf Ur Squamous Epith Cells <1 (0-4) /hpf Amorphous Sediment Few H (None) /hpf Urine Mucus Rare H (None) /hpf 11/18/23 Range/Units 10:40 WBC (3.8-10.6) k/uL RBC (4.30-5.90) m/uL Hgb (13.0-17.5) gm/dL Hct (39.0-53.0) % MCV (80.0-100.0) fL MCH (25.0-35.0) pg MCHC (31.0-37.0) g/dL RDW (11.5-15.5) % Plt Count (150-450) k/uL MPV Neutrophils % % Lymphocytes % % Monocytes % % Eosinophils % % Basophils % % Neutrophils # (1.3-7.7) k/uL Lymphocytes # (1.0-4.8) k/uL Monocytes # (0-1.0) k/uL Eosinophils # (0-0.7) k/uL Basophils # (0-0.2) k/uL Sodium (137-145) mmol/L Potassium (3.5-5.1) mmol/L Chloride (98-107) mmol/L Carbon Dioxide (22-30) mmol/L Anion Gap mmol/L BUN (9-20) mg/dL Creatinine (0.66-1.25) mg/dL Est GFR (CKD-EPI)AfAm (>60 ml/min/1.73 sqM) Est GFR (CKD-EPI)NonAf (>60 ml/min/1.73 sqM) Glucose (74-99) mg/dL Plasma Lactic Acid [place] 1.0 (0.7-2.0) mmol/L Calcium (8.4-10.2) mg/dL Total Bilirubin (0.2-1.3) mg/dL AST (17-59) U/L ALT (4-49) U/L Alkaline Phosphatase (38-126) U/L Total Protein (6.3-8.2) g/dL Albumin (3.5-5.0) g/dL Amylase (30-110) U/L Lipase (23-300) U/L Urine Color Urine Appearance (Clear) Urine pH (5.0-8.0) Ur Specific [place] (1.001-1.035) Urine Protein (Negative) Urine Glucose (UA) (Negative) Urine Ketones (Negative) Urine Blood (Negative) Urine Nitrite (Negative) Urine Bilirubin (Negative) Urine Urobilinogen (<2.0) mg/dL Ur Leukocyte Esterase (Negative) Urine RBC (0-5) /hpf Urine WBC (0-5) /hpf Ur Squamous Epith Cells (0-4) /hpf Amorphous Sediment (None) /hpf Urine Mucus (None) /hpf - Radiology Data Radiology results: report reviewed, image reviewed Disposition Clinical Impression: Epididymitis Disposition: HOME SELF-CARE Condition: Stable Instructions (If sedation given, give patient instructions): Epididymitis (ED) Additional Instructions: Please take doxycycline twice daily for 14 days and follow-up with urology. You may take [id number] Tylenol and Motrin for pain control. Return to the ER for any new or worsening concerns. Prescriptions: Doxycycline [Vibramycin] 100 mg PO BID 14 Days #28 capsule Is patient prescribed a controlled substance at d/c from ED?: No Referrals: Jose Myrick MD [Primary Care Provider] - 1-2 days Carlos Neri MD [STAFF PHYSICIAN] - 1-2 days Time of Disposition: 13:28
[2023-11-18 10:46] LABS: Basophils # (A) 0.1 k/uL (0-0.2); Basophils % (A) 1 %; Eosinophils # (A) 0.3 k/uL (0-0.7); Eosinophils % (A) 7 %; HCT 45.3 % (39.0-53.0); HGB 14.5 gm/dL (13.0-17.5); Lymphocytes # (A) 1.1 k/uL (1.0-4.8); Lymphocytes % (A) 23 %; MCH 27.7 pg (25.0-35.0); MCHC 32.1 g/dL (31.0-37.0); MCV 86.5 fL (80.0-100.0); Mean Platelet Volume 7.1; Monocytes # (A) 0.3 k/uL (0-1.0); Monocytes % (A) 6 %; Neutrophils % (A) 61 %; Platelet Count 264 k/uL (150-450); RBC 5.24 m/uL (4.30-5.90); RDW 12.9 % (11.5-15.5); WBC 4.9 k/uL (3.8-10.6)
[2023-11-18] MEDS: ONDANSETRON 4 MG/2 ML VIAL IVP STA (10:53)
[2023-11-18] MEDS: SODIUM CHLORIDE 0.9% 1,000 ML IV STA (10:54)
[2023-11-18 10:56] LABS: Amorphous Sediment,Urine Few /hpf; Appearance,Urine Cloudy (Clear); Bilirubin,Urine Negative (Negative); Blood,Urine Negative (Negative); Color,Urine Colorless; Glucose,Urine (UA) Negative (Negative); Ketones,Urine Negative (Negative); Leukocyte Esterase,Urine Trace (Negative); Mucus,Urine Rare /hpf; Nitrite,Urine Negative (Negative); Protein,Urine Negative (Negative); RBC,Urine 2 /hpf (0-5); Specific Gravity,Urine 1.019 (1.001-1.035); Squamous Epithelial Cell,Urine <1 /hpf (0-4); Urobilinogen,Urine <2.0 mg/dL (<2.0); WBC,Urine 4 /hpf (0-5)
[2023-11-18 11:06] LABS: ALT 90 U/L (4-49); AST 46 U/L (17-59); African American GFR (CKD) >90 (>60 ml/min/1.73 sqM); Albumin 4.1 g/dL (3.5-5.0); Alkaline Phosphatase 107 U/L (38-126); Amylase 46 U/L (30-110); Anion Gap 6 mmol/L; Blood Urea Nitrogen 20 mg/dL (9-20); Calcium 9.1 mg/dL (8.4-10.2); Carbon Dioxide 28 mmol/L (22-30); Chloride 105 mmol/L (98-107); Glucose 101 mg/dL (74-99); Lipase 65 U/L (23-300); Non-African American GFR(CKD) >90 (>60 ml/min/1.73 sqM); Potassium 4.1 mmol/L (3.5-5.1); Sodium 139 mmol/L (137-145); Total Bilirubin 0.5 mg/dL (0.2-1.3); Total Protein 7.2 g/dL (6.3-8.2)
[2023-11-18] MEDS: KETOROLAC 15 MG/ML 1 ML VIAL IVP STA (11:53)
[2023-11-18] MEDS: LORazepam 2 MG/ML INJ IV STA (11:54)
--- NOTE | 2023-11-18 13:08 | US ---
EXAMINATION TYPE: US scrotum with doppler. Grayscale and color Doppler Duplex imaging performed of alvarez becerril scrotum. DATE OF EXAM: 11/18/2023 COMPARISON: 01/15/2023 CLINICAL INDICATION: Male, 38 years old with history of pain; Pain with urination, left testicle retr acting to groin EXAM MEASUREMENTS: TESTICLES: Right Testicle: 4.5 x 2.4 x 3.5 cm Left Testicle: 4.0 x 2.5 x 2.6 cm EPIDIDYMIS HEAD: Right Epididymis: 1.0 x 0.6 x 1.3 cm Left Epididymis: 1.4 x 1.3 x 1.8 cm Doppler performed to assess for testicular vascularity; good bilateral color flow and waveforms are s een. There is no evidence of testicular torsion. Presence of hydroceles: no Presence of varicoceles: bilaterally Enlarged epididymus head, body, and tail with calcifications bilaterally IMPRESSION: 1. There is calcifications and enlargement of the epididymis bilaterally correlate for epididymitis. 2. Small bilateral varicoceles.
[2023-11-18] MEDS: cefTRIAXone 1,000 MG VIAL (IM USE) IM STA (14:04)
[2023-11-18] MEDS: cefTRIAXone IN SWFI 1,000 MG/10 ML SYRINGE IVP STA (14:24)
[2023-11-18 15:09] VITALS: BP 136/72; PULSE 69; RESP 16
[2023-11-19 13:20] LABS: C. trachomatis,PCR NEG; N. gonorrhoeae,PCR NEG
== END 2023-11-18 14:52 | disposition home or self-care (01) ==
LOC: EC 09:48
DX: N45.1 Epididymitis (principal); F17.290 Nicotine dependence, other tobacco product, uncomplicated; F12.90 Cannabis use, unspecified, uncomplicated; Z88.8 Allergy status to other drugs, medicaments and biological substances
CPT/HCPCS: 36415; 80053; 82150; 83605; 83690; 85025; 81001; 93975; 76870; 99284; 96374; 96375 ×3; 96361 ×4; 99406; J2060; J2405; J0696; J1885; 87491; 87591

== ENCOUNTER 2024-01-07 10:52 | Emergency (ER) | payer OTHER ==
[2024-01-07 11:47] VITALS: TEMP 97.6
--- NOTE | 2024-01-07 12:27 | ED ---
General Adult HPI <Mustapha Kirkpatrick - Last Filed: 01/07/24 20:56> - General Source: patient, police, EMS, RN notes reviewed Mode of arrival: EMS Limitations: no limitations <Sami Brandt - Last Filed: 01/08/24 06:27> - General Chief complaint: Overdose Stated complaint: Altered Level of Con. Time Seen by Provider: 01/07/24 10:56 - History of Present Illness Initial comments: 38-year-old male presents emergency department via EMS with police for evaluation of possible drug overdose. Patient states that he is just extremely tired as he states he is working 3 jobs currently to support himself and his child. Patient does admit that he had extreme grief from loss of recent from his parents, girlfriend. Patient states he is depressed but not suicidal. He does have a history of drug abuse states he is on Suboxone and has admitted to some recent drug use. Patient was found sleeping at work. He has no other complaints. He denies any chest pain shortness of breath abdominal pain no GI symptoms (Sami Brandt) - Related Data Home Medications Medication Instructions Recorded Confirmed Ibuprofen 800 mg PO QID PRN 06/08/19 01/07/24 Buprenorphine HCl/Naloxone HCl 1 film SL DAILY@1300 11/18/23 01/07/24 [Suboxone 4 mg-1 mg Sl Film] Buprenorphine HCl/Naloxone HCl 0.5 film SL DAILY@0500 11/18/23 01/07/24 [Suboxone 8 mg-2 mg Sl Film] Butalb/APAP/Caff 50-325-40Mg 1 tab PO Q4H PRN 11/18/23 01/07/24 [Fioricet 50-325-40] Naloxone HCl [Narcan] 4 mg NASAL DIRECTED PRN 11/18/23 01/07/24 Allergies Allergy/AdvReac Type Severity Reaction Status Date / Time cefepime AdvReac seizure Verified 01/07/24 12:10 prochlorperazine edisylate AdvReac SEIZURE Verified 01/07/24 12:10 [From Compazine] prochlorperazine maleate AdvReac SEIZURE Verified 01/07/24 12:10 [From Compazine] Review of Systems ROS Other: All systems not noted in ROS Statement are negative. <Mustapha Kirkpatrick - Last Filed: 01/07/24 20:56> ROS Other: All systems not noted in ROS Statement are negative. <Sami Brandt - Last Filed: 01/08/24 06:27> ROS Statement: Those systems with pertinent positive or pertinent negative responses have been documented in the HPI. Past Medical History Past Medical History: Asthma, GERD/Reflux, Hypertension, Seizure Disorder Additional Past Medical History / Comment(s): Left sternoclavicular joint osteomyelitis, treated at [facility] Pt states had quit heroin since 2016. lower back pain with arthritis, herniated discs, migraines , seizure with compazine as a child and once while in rehab in 2013.last seizure 5-6 months ago, adhd/anxiety, [place] lt ear(past perforated eardrum, migraines History of Any Multi-Drug Resistant Organisms: MRSA Date of last positivie culture/infection: 09/11/18 MDRO Source:: Left Arm Past Surgical History: No Surgical Hx Reported, Hernia Repair Additional Past Surgical History / Comment(s): HAD EAR SURGERY AN twice. Cystoscopy Past Anesthesia/Blood Transfusion Reactions: No Reported Reaction Past Psychological History: ADD/ADHD, Anxiety Smoking Status: Current every day smoker, Vaper Past Alcohol Use History: Occasional Past Drug Use History: Marijuana, Prescription Drug Abuse - Past Family History Father Family Medical History: Cancer Additional Family Medical History / Comment(s): FATHER HAd EMPHYSEMA AND STAGE IV LUNG CA. ALSO HAS AN AORTIC ANEURYSM. recently . Mother Family Medical History: Cancer Additional Family Medical History / Comment(s): BREAST CANCER. <Sami Brandt - Last Filed: 01/08/24 06:27> General Exam Limitations: no limitations General appearance: alert, in no apparent distress Head exam: Present: atraumatic, normocephalic, normal inspection Eye exam: Present: normal appearance, PERRL, EOMI. Absent: scleral icterus, conjunctival injection, periorbital swelling ENT exam: Present: normal exam, mucous membranes moist Neck exam: Present: normal inspection, full ROM. Absent: tenderness, meningismus, lymphadenopathy Respiratory exam: Present: normal lung sounds bilaterally. Absent: respiratory distress, wheezes, rales, rhonchi, stridor Cardiovascular Exam: Present: regular rate, normal rhythm, normal heart sounds. Absent: systolic murmur, diastolic murmur, rubs, gallop, clicks GI/Abdominal exam: Present: soft, normal bowel sounds. Absent: distended, tenderness, guarding, rebound, rigid Neurological exam: Present: alert Psychiatric exam: Present: flat affect <Sami Brandt - Last Filed: 01/08/24 06:27> Course Vital Signs 01/07/24 01/07/24 01/07/24 10:54 12:00 12:30 Temperature 97.6 F Pulse Rate 80 60 65 Respiratory 16 18 16 Rate Blood Pressure 151/99 127/92 133/43 O2 Sat by Pulse 98 100 96 Oximetry 01/07/24 01/07/24 01/07/24 13:00 13:05 14:00 Temperature Pulse Rate 61 66 Respiratory 16 16 18 Rate Blood Pressure 102/55 131/86 121/82 O2 Sat by Pulse 99 98 98 Oximetry 01/07/24 01/07/24 01/07/24 15:00 20:00 21:19 Temperature 97.6 F Pulse Rate 64 59 L Respiratory 16 15 15 Rate Blood Pressure 125/89 132/82 118/79 O2 Sat by Pulse 99 100 97 Oximetry Medical Decision Making <Sami Brandt M - Last Filed: 01/08/24 06:27> - Medical Decision Making Was pt. sent in by a medical professional or institution ([facility], [employer], urgent care, hospital, or fci...) When possible be specific @ -No Did you speak to anyone other than the patient for history (EMS, parent, family, police, friend...)? What history was obtained from this source @ -[Police and EMS who brought the patient in giving history at scene Did you review nursing and triage notes (agree or disagree)? Why? @ -I reviewed and agree with nursing and triage notes Were old charts reviewed (outside hosp., previous admission, EMS record, old EKG, old radiological studies, urgent care reports/EKG's, fci records)? Report findings @ -No old charts were reviewed Differential Diagnosis (chest pain, altered mental status, abdominal pain women, abdominal pain men, vaginal bleeding, weakness, fever, dyspnea, syncope, headache, dizziness, GI bleed, back pain, seizure, CVA, palpatations, mental health, musculoskeletal)? @ -Differential Mental Health Depression, anxiety, bipolar, psychosis, schizophrenia, borderline personality, situational depression, adjustment disorder, behavioral disorder, brain tumor, malingering, substance abuse, encephalopathy, medication reaction, dementia, hypothyroidism, degenerative neurologic disorder, lupus.... This is not meant to be all-inclusive list EKG interpreted by me (3pts min.). @ -None X-rays interpreted by me (1pt min.). @ -None done CT interpreted by me (1pt min.). @ -None done U/S interpreted by me (1pt. min.). @ -None done What testing was considered but not performed or refused? (CT, X-rays, U/S, labs)? Why? @ -None What meds were considered but not given or refused? Why? @ -None Did you discuss the management of the patient with other professionals (professionals i.e. , PA, [employer], lab, RT, psych nurse, social work lecturer, president and chief operating officer, teacher, president and chief operating officer, disease case manager rn)? Give summary @ -EPS evaluated patient and recommended outpatient treatment that he does not meet inpatient treatment Was smoking cessation discussed for >3mins.? @ -No Was critical care preformed (if so, how long)? @ -No Were there social determinants of health that impacted care today? How? (Homelessness, low income, unemployed, alcoholism, drug addiction, transportation, low edu. Level, literacy, decrease access to med. care, fpc, rehab)? @ -No Was there de-escalation of care discussed even if they declined (Discuss DNR or withdrawal of care, Hospice)? DNR status @ -No What co-morbidities impacted this encounter? (DM, HTN, Smoking, COPD, CAD, Cancer, CVA, ARF, Chemo, Hep., AIDS, mental health diagnosis, sleep apnea, morbid obesity)? @ -None Was patient admitted / discharged? Hospital course, mention meds given and route, prescriptions, significant lab abnormalities, going to OR and other pertinent info. @ -Charge patient evaluated EPS was recommended for outpatient treatment patient does have drug abuse, methamphetamines and cocaine. Undiagnosed new problem with uncertain prognosis? @ -No Drug Therapy requiring intensive monitoring for toxicity (Heparin, Nitro, Insulin, Cardizem)? @ -No Were any procedures done? @ -No Diagnosis/symptom? @ -Drug overdose, drug abuse Acute, or Chronic, or Acute on Chronic? @ -Acute Uncomplicated (without systemic symptoms) or Complicated (systemic symptoms)? @ -Complicated Side effects of treatment? @ -No Exacerbation, Progression, or Severe Exacerbation? @ -No Poses a threat to life or bodily function? How? (Chest pain, [place], [place], pneumonia, PE, COPD, DKA, ARF, appy, cholecystitis, CVA, Diverticulitis, Homicidal, Suicidal, threat to staff... and all critical care pts) @ -Yes could cause drug overdose (Sami Brandt) - Lab Data Lab Results 01/07/24 Range/Units 15:20 Urine Opiates Screen Not Detected (NotDetected) Ur Oxycodone Screen Not Detected (NotDetected) Urine Methadone Screen Not Detected (NotDetected) Ur Barbiturates Screen Not Detected (NotDetected) U Tricyclic Antidepress Not Detected (NotDetected) Ur Phencyclidine Scrn Not Detected (NotDetected) Ur Amphetamines Screen Detected H (NotDetected) U Methamphetamines Scrn Detected H (NotDetected) U Benzodiazepines Scrn Not Detected (NotDetected) Urine Cocaine Screen Detected H (NotDetected) U Marijuana (THC) Screen Detected H (NotDetected) Disposition Is patient prescribed a controlled substance at d/c from ED?: No <Mustapha Kirkpatrick - Last Filed: 01/07/24 20:56> <Sami Brandt - Last Filed: 01/08/24 06:27> Clinical Impression: Drug overdose Disposition: HOME SELF-CARE Condition: Fair Instructions (If sedation given, give patient instructions): Adult Overdose (ED) Referrals: Jose Myrick MD [Primary Care Provider] - 1-2 days
[2024-01-07 15:48] LABS: Amphetamine Screen,Urine Detected (NotDetected); Barbiturate Screen,Urine Not Detected (NotDetected); Benzodiazepines Screen,Urine Not Detected (NotDetected); Cocaine Screen,Urine Detected (NotDetected); Methadone Screen, Urine Not Detected (NotDetected); Opiate Screen,Urine Not Detected (NotDetected); Oxycodone Screen, Urine Not Detected (NotDetected); Phencyclidine Screen,Urine Not Detected (NotDetected); Tricyclic Antidepressant,Urine Not Detected (NotDetected); Urn Cannabinoid Scrn Detected (NotDetected)
[2024-01-07 20:35] VITALS: RESP 15
[2024-01-07 21:24] VITALS: BP 118/79; PULSE 59
== END 2024-01-07 21:20 | disposition home or self-care (01) ==
LOC: EC 10:52
DX: T50.7X1A Poisoning by analeptics and opioid receptor antagonists, accidental (unintentional), initial encounter (principal); F17.290 Nicotine dependence, other tobacco product, uncomplicated; F12.90 Cannabis use, unspecified, uncomplicated; Z88.8 Allergy status to other drugs, medicaments and biological substances; Z88.1 Allergy status to other antibiotic agents
CPT/HCPCS: 80306; 82075; 99284

== ENCOUNTER 2024-08-20 15:55 | Emergency (ER) | payer OTHER ==
[2024-08-20 16:10] VITALS: RESP 18
--- NOTE | 2024-08-20 16:47 | XR ---
EXAMINATION TYPE: XR KUB DATE OF EXAM: 08/20/2024 4:35 PM COMPARISON: 06/08/2019 CLINICAL INDICATION: Male, 39 years old with history of constipation, bloating; [facility] TECHNIQUE: One radiographic view of the abdomen was obtained. FINDINGS: The bowel gas pattern is nonspecific without dilated loops of small or large bowel. . Fecal material and gas are demonstrated throughout the colon and rectum. There is no evidence for organome ghassan or pneumoperitoneum. The osseous structures are intact. No abnormal calcifications are present . IMPRESSION: Nonspecific bowel gas pattern without radiographic evidence for acute process. [facility], , 08/20/2024 4:44 PM
--- NOTE | 2024-08-20 16:58 | ED ---
General Adult HPI - General Chief complaint: Abdominal Pain Stated complaint: Back pain and stomach pain Time Seen by Provider: 08/20/24 16:11 Source: patient, RN notes reviewed Mode of arrival: ambulatory Limitations: no limitations - History of Present Illness Initial comments: This is a 39-year-old male presenting to the emergency department for chief complaint of constipation. Patient states that he is having a difficult time having a bowel movement over the past week with his last being this morning that was a very small quantity. Patient states that he is attempted at home suppository with no relief of symptoms. He endorses abdominal bloating however denies abdominal pain. Denies melena, hematochezia. Dors is nausea with no vomiting. Additionally, patient states that he is having lumbar back pain that is exacerbated on palpation with range of motion. Patient is quite anxious states that he is currently going through a custody holly for his children and is concerned that his symptoms may be worsening his constipation. - Related Data Home Medications Medication Instructions Recorded Confirmed Ibuprofen 800 mg PO QID PRN 06/08/19 01/07/24 Buprenorphine HCl/Naloxone HCl 1 film SL DAILY@1300 11/18/23 01/07/24 [Suboxone 4 mg-1 mg Sl Film] Buprenorphine HCl/Naloxone HCl 0.5 film SL DAILY@0500 11/18/23 01/07/24 [Suboxone 8 mg-2 mg Sl Film] Butalb/APAP/Caff 50-325-40Mg 1 tab PO Q4H PRN 11/18/23 01/07/24 [Fioricet 50-325-40] Naloxone HCl [Narcan] 4 mg NASAL DIRECTED PRN 11/18/23 01/07/24 Allergies Allergy/AdvReac Type Severity Reaction Status Date / Time cefepime AdvReac seizure Verified 08/20/24 16:05 prochlorperazine edisylate AdvReac SEIZURE Verified 08/20/24 16:05 [From Compazine] prochlorperazine maleate AdvReac SEIZURE Verified 08/20/24 16:05 [From Compazine] Review of Systems ROS Statement: Those systems with pertinent positive or pertinent negative responses have been documented in the HPI. ROS Other: All systems not noted in ROS Statement are negative. Past Medical History Past Medical History: Asthma, GERD/Reflux, Hypertension, Seizure Disorder Additional Past Medical History / Comment(s): Left sternoclavicular joint osteomyelitis, treated at [facility] Pt states had quit heroin since 2016. lower back pain with arthritis, herniated discs, migraines , seizure with compazine as a child and once while in rehab in 2013.last seizure 5-6 months ago, adhd/anxiety, [place] lt ear(past perforated eardrum, migraines History of Any Multi-Drug Resistant Organisms: MRSA Date of last positivie culture/infection: 09/11/18 MDRO Source:: Left Arm Past Surgical History: No Surgical Hx Reported, Hernia Repair Additional Past Surgical History / Comment(s): HAD EAR SURGERY AN INFANT twice. Cystoscopy Past Anesthesia/Blood Transfusion Reactions: No Reported Reaction Past Psychological History: ADD/ADHD, Anxiety Smoking Status: Current every day smoker, Vaper Past Alcohol Use History: Occasional Past Drug Use History: None Reported, Marijuana, Prescription Drug Abuse - Past Family History Father Family Medical History: Cancer Additional Family Medical History / Comment(s): FATHER HAd EMPHYSEMA AND STAGE IV LUNG CA. ALSO HAS AN AORTIC ANEURYSM. recently . Mother Family Medical History: Cancer Additional Family Medical History / Comment(s): BREAST CANCER. General Exam Limitations: no limitations General appearance: alert, in no apparent distress, anxious ENT exam: Present: normal exam, mucous membranes moist Respiratory exam: Present: normal lung sounds bilaterally. Absent: respiratory distress, wheezes, rales, rhonchi, stridor Cardiovascular Exam: Present: regular rate, normal rhythm, normal heart sounds. Absent: systolic murmur, diastolic murmur, rubs, gallop, clicks GI/Abdominal exam: Present: soft, distended, normal bowel sounds. Absent: tenderness, guarding, rebound, rigid, mass, bruit Extremities exam: Present: normal inspection, full ROM, normal capillary refill. Absent: tenderness, pedal edema, joint swelling, calf tenderness Back exam: Present: normal inspection Skin exam: Present: warm, dry, intact, normal color. Absent: rash Course Vital Signs 08/20/24 16:06 Temperature 98.2 F Pulse Rate 80 Respiratory 18 Rate Blood Pressure 151/88 O2 Sat by Pulse 98 Oximetry Medical Decision Making - Medical Decision Making Was pt. sent in by a medical professional or institution (, PA, [employer], urgent care, hospital, or halfway...) When possible be specific @ -No Did you speak to anyone other than the patient for history (EMS, parent, family, police, friend...)? What history was obtained from this source @ -No Did you review nursing and triage notes (agree or disagree)? Why? @ -I reviewed and agree with nursing and triage notes Were old charts reviewed (outside hosp., previous admission, EMS record, old EKG, old radiological studies, urgent care reports/EKG's, halfway records)? Report findings @ -No old charts were reviewed Differential Diagnosis (chest pain, altered mental status, abdominal pain women, abdominal pain men, vaginal bleeding, weakness, fever, dyspnea, syncope, headache, dizziness, GI bleed, back pain, seizure, CVA, palpatations, mental health, musculoskeletal)? @ -Differential Abdominal Pain Men: Appendicitis, cholecystitis, diverticulosis, ischemic bowel, pancreatitis, hepatitis, UTI, gastroenteritis, AAA, incarcerated hernia, bowel obstruction, constipation, inflammatory bowel, hepatitis, peptic ulcer disease, splenic infarction, perforated viscus, testicular torsion, this is not meant to be an all-inclusive list EKG interpreted by me (3pts min.). @ -None X-rays interpreted by me (1pt min.). @ -KUB x-ray no evidence for acute process. CT interpreted by me (1pt min.). @ -None done U/S interpreted by me (1pt. min.). @ -None done What testing was considered but not performed or refused? (CT, X-rays, U/S, labs)? Why? @ -None What meds were considered but not given or refused? Why? @ -None Did you discuss the management of the patient with other professionals (professionals i.e. , PA, [employer], lab, RT, psych nurse, social media marketing analyst, intellectual property lawyer, teacher, collection officer, manager of case management)? Give summary @ -No Was smoking cessation discussed for >3mins.? @ -No Was critical care preformed (if so, how long)? @ -No Were there social determinants of health that impacted care today? How? (Homelessness, low income, unemployed, alcoholism, drug addiction, transportation, low edu. Level, literacy, decrease access to med. care, senior care, rehab)? @ -No Was there de-escalation of care discussed even if they declined (Discuss DNR or withdrawal of care, Hospice)? DNR status @ -No What co-morbidities impacted this encounter? (DM, HTN, Smoking, COPD, CAD, Cancer, CVA, ARF, Chemo, Hep., AIDS, mental health diagnosis, sleep apnea, morbid obesity)? @ -None Was patient admitted / discharged? Hospital course, mention meds given and route, prescriptions, significant lab abnormalities, going to OR and other pertinent info. @ -Discharge. 39-year-old male presenting with abdominal bloating constipation. Is noted to have abdominal bloating on examination with no evidence of tenderness to palpation. equal bowel sounds are throughout quadrants. It is quite anxious on exam in addition to anxiety with regard to use of enema and therefore minor dose of IM ativan is administered. X-ray KUB no evidence of small bowel obstruction or free air. Patient provided with enema that has been since on the emergency department. Additionally, he is discharged with magnesium citrate to take as needed addition to recommend increasing fluids and fiber to combat constipation. discussed with Dr. Cooper Undiagnosed new problem with uncertain prognosis? @ -No Drug Therapy requiring intensive monitoring for toxicity (Heparin, Nitro, Insulin, Cardizem)? @ -No Were any procedures done? @ -No Diagnosis/symptom? @ -Constipation, anxiety Acute, or Chronic, or Acute on Chronic? @ -Acute Uncomplicated (without systemic symptoms) or Complicated (systemic symptoms)? @ -Uncomplicated Side effects of treatment? @ -No Exacerbation, Progression, or Severe Exacerbation? @ -No Poses a threat to life or bodily function? How? (Chest pain, [place], [place], pneumonia, PE, COPD, DKA, ARF, appy, cholecystitis, CVA, Diverticulitis, Homicidal, Suicidal, threat to staff... and all critical care pts) @ -No Disposition Clinical Impression: Constipation, Anxiety Disposition: HOME SELF-CARE Condition: Good Instructions (If sedation given, give patient instructions): Constipation (ED), High Fiber Diet (ED) Additional Instructions: Please return to the Emergency Department if symptoms worsen or any other concerns. Is patient prescribed a controlled substance at d/c from ED?: No Referrals: None,Stated [Primary Care Provider] - 1-2 days Time of Disposition: 18:29
[2024-08-20] MEDS: NA PHOS,M-B/NA PHOS,DI-BA 133 ML ENEMA RECTAL STA (17:30)
[2024-08-20] MEDS: LORazepam 2 MG/ML INJ IM STA (17:37)
[2024-08-20] MEDS: MAGNESIUM CITRATE 296 ML BOTTLE PO ONE (18:45)
[2024-08-20 18:50] VITALS: BP 146/78; PULSE 78; TEMP 98
== END 2024-08-20 20:37 | disposition home or self-care (01) ==
LOC: EC 15:55
DX: K59.00 Constipation, unspecified (principal); F41.9 Anxiety disorder, unspecified; F17.290 Nicotine dependence, other tobacco product, uncomplicated; Z88.1 Allergy status to other antibiotic agents; Z88.8 Allergy status to other drugs, medicaments and biological substances
CPT/HCPCS: 74018; 99284; 96372; J2060

== ENCOUNTER 2024-11-09 09:02 | Emergency (ER) | payer OTHER ==
[2024-11-09 09:10] VITALS: RESP 18
--- NOTE | 2024-11-09 09:57 | US ---
EXAMINATION TYPE: US scrotum with doppler. DATE OF EXAM: 11/09/2024 COMPARISON: Scrotal ultrasound November 18, 2023 CLINICAL INDICATION: Male, 39 years old with history of pain; Pt states left testicle pain x 1 year, has gotten worse the last couple of days TECHNIQUE: Grayscale, color Doppler and spectral Doppler imaging of the scrotum. FINDINGS: EXAM MEASUREMENTS: TESTICLES: Right Testicle: 4.6 x 2.0 x 3.3 cm Left Testicle: 4.2 x 2.0 x 3.0 cm EPIDIDYMIS HEAD: Right Epididymis: 1.0 cm Left Epididymis: 0.9 cm Doppler performed to assess for testicular vascularity; good bilateral color flow and spectral wavefo maykel are seen. Presence of hydroceles: No Presence of varicoceles: Yes, lateral and inferior to left testicle, valsalva maneuver performed IMPRESSION: Satisfactory blood flow to both testicles identified. No evidence for acute process. No evidence for intratesticular mass. [facility], , 11/09/2024 9:55 AM
[2024-11-09] MEDS: LORazepam 1 MG TAB PO STA (10:15)
[2024-11-09 10:33] LABS: Appearance,Urine Clear (Clear); Bilirubin,Urine Negative (Negative); Blood,Urine Negative (Negative); Color,Urine Colorless; Glucose,Urine (UA) Negative (Negative); Ketones,Urine Negative (Negative); Leukocyte Esterase,Urine Negative (Negative); Nitrite,Urine Negative (Negative); Protein,Urine Negative (Negative); Specific Gravity,Urine 1.007 (1.001-1.035); Urobilinogen,Urine <2.0 mg/dL (<2.0)
--- NOTE | 2024-11-09 10:53 | ED ---
Male Urogenital HPI - General Chief complaint: Urogenital Stated complaint: Urogenital Time Seen by Provider: 11/09/24 09:15 Source: patient, RN notes reviewed Mode of arrival: ambulatory Limitations: no limitations - History of Present Illness Initial comments: 39-year-old male presents emergency department complaint of left-sided scrotal pain. Patient states he has intermittent episodes he states pain is resolved at this time. Denies any dysuria hematuria no swelling he states he had prior hernia repair over 5 years ago his had no complications. Patient states he had no change in bowel habits no dysuria no other associated complaints - Related Data Home Medications Medication Instructions Recorded Confirmed Ibuprofen 800 mg PO QID PRN 06/08/19 01/07/24 Buprenorphine HCl/Naloxone HCl 1 film SL DAILY@1300 11/18/23 01/07/24 [Suboxone 4 mg-1 mg Sl Film] Buprenorphine HCl/Naloxone HCl 0.5 film SL DAILY@0500 11/18/23 01/07/24 [Suboxone 8 mg-2 mg Sl Film] Butalb/APAP/Caff 50-325-40Mg 1 tab PO Q4H PRN 11/18/23 01/07/24 [Fioricet 50-325-40] Naloxone HCl [Narcan] 4 mg NASAL DIRECTED PRN 11/18/23 01/07/24 Previous Rx's Medication Instructions Recorded Ibuprofen [Motrin] 600 mg PO Q8HR PRN #20 tab 11/09/24 Allergies Allergy/AdvReac Type Severity Reaction Status Date / Time cefepime AdvReac seizure Verified 11/09/24 09:09 prochlorperazine edisylate AdvReac SEIZURE Verified 11/09/24 09:09 [From Compazine] prochlorperazine maleate AdvReac SEIZURE Verified 11/09/24 09:09 [From Compazine] Review of Systems ROS Statement: Those systems with pertinent positive or pertinent negative responses have been documented in the HPI. ROS Other: All systems not noted in ROS Statement are negative. 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 lower back pain with arthritis, herniated discs, migraines , seizure with compazine as a child and once while in rehab in 2014.last seizure 5-6 months ago, adhd/anxiety, [place] lt ear(past perforated eardrum, migraines History of Any Multi-Drug Resistant Organisms: MRSA Date of last positivie culture/infection: 09/11/18 MDRO Source:: Left Arm Past Surgical History: No Surgical Hx Reported, Hernia Repair Additional Past Surgical History / Comment(s): HAD EAR SURGERY AN twice. Cystoscopy Past Anesthesia/Blood Transfusion Reactions: No Reported Reaction Past Psychological History: ADD/ADHD, Anxiety Smoking Status: Current every day smoker, Vaper Past Alcohol Use History: Occasional Past Drug Use History: None Reported, Marijuana, Prescription Drug Abuse - Past Family History Father Family Medical History: Cancer Additional Family Medical History / Comment(s): FATHER HAd EMPHYSEMA AND STAGE IV LUNG CA. ALSO HAS AN AORTIC ANEURYSM. recently . Mother Family Medical History: Cancer Additional Family Medical History / Comment(s): BREAST CANCER. General Exam Limitations: no limitations General appearance: alert, in no apparent distress Head exam: Present: atraumatic, normocephalic, normal inspection Eye exam: Present: normal appearance, PERRL, EOMI. Absent: scleral icterus, conjunctival injection, periorbital swelling Respiratory exam: Present: normal lung sounds bilaterally. Absent: respiratory distress, wheezes, rales, rhonchi, stridor Cardiovascular Exam: Present: regular rate, normal rhythm, normal heart sounds. Absent: systolic murmur, diastolic murmur, rubs, gallop, clicks GI/Abdominal exam: Present: soft, normal bowel sounds. Absent: distended, tenderness, guarding, rebound, rigid exam: Absent: normal inspection, testicular tenderness, scrotal swelling Course Vital Signs 11/09/24 09:04 Temperature 97.7 F Pulse Rate 76 Respiratory 18 Rate Blood Pressure 142/90 O2 Sat by Pulse 100 Oximetry Medical Decision Making - Medical Decision Making Was pt. sent in by a medical professional or institution (, PA, DIESEL CRANE OPERATOR, urgent care, hospital, or usp...) When possible be specific @ -No Did you speak to anyone other than the patient for history (EMS, parent, family, police, friend...)? What history was obtained from this source @ -No Did you review nursing and triage notes (agree or disagree)? Why? @ -I reviewed and agree with nursing and triage notes Were old charts reviewed (outside hosp., previous admission, EMS record, old EKG, old radiological studies, urgent care reports/EKG's, usp records)? Report findings @ -No old charts were reviewed Differential Diagnosis (chest pain, altered mental status, abdominal pain women, abdominal pain men, vaginal bleeding, weakness, fever, dyspnea, syncope, headache, dizziness, GI bleed, back pain, seizure, CVA, palpatations, mental health, musculoskeletal)? @ -Epididymitis, testicular torsion, UTI, orchitis, EKG interpreted by me (3pts min.). @ -None X-rays interpreted by me (1pt min.). @ -None done CT interpreted by me (1pt min.). @ -None done U/S interpreted by me (1pt. min.). @ -[Ultrasound scrotum no acute process no evidence of torsion or epididymitis What testing was considered but not performed or refused? (CT, X-rays, U/S, labs)? Why? @ -None What meds were considered but not given or refused? Why? @ -None Did you discuss the management of the patient with other professionals (professionals i.e. , PA, DIESEL CRANE OPERATOR, lab, RT, psych nurse, hospice social worker, registered nursing professor, teacher, life science technical officer, special education case manager)? Give summary @ -No Was smoking cessation discussed for >3mins.? @ -No Was critical care preformed (if so, how long)? @ -No Were there social determinants of health that impacted care today? How? (Homelessness, low income, unemployed, alcoholism, drug addiction, transportation, low edu. Level, literacy, decrease access to med. care, [facility], rehab)? @ -No Was there de-escalation of care discussed even if they declined (Discuss DNR or withdrawal of care, Hospice)? DNR status @ -No What co-morbidities impacted this encounter? (DM, HTN, Smoking, COPD, CAD, Cancer, CVA, ARF, Chemo, Hep., AIDS, mental health diagnosis, sleep apnea, morbid obesity)? @ -None Was patient admitted / discharged? Hospital course, mention meds given and route, prescriptions, significant lab abnormalities, going to OR and other pertinent info. @ -Discharge patient has intermittent testicular pain patient's urine is unremarkable ultrasound was unremarkable. Patient is currently asymptomatic will follow-up with urology. Undiagnosed new problem with uncertain prognosis? @ -No Drug Therapy requiring intensive monitoring for toxicity (Heparin, Nitro, Insulin, Cardizem)? @ -No Were any procedures done? @ -No Diagnosis/symptom? @ -Intermittent testicular pain Acute, or Chronic, or Acute on Chronic? @ -Acute Uncomplicated (without systemic symptoms) or Complicated (systemic symptoms)? @ -Uncomplicated Side effects of treatment? @ -No Exacerbation, Progression, or Severe Exacerbation? @ -No Poses a threat to life or bodily function? How? (Chest pain, USA, SC, pneumonia, PE, COPD, DKA, ARF, appy, cholecystitis, CVA, Diverticulitis, Homicidal, Suicidal, threat to staff... and all critical care pts) @ -No - Lab Data Lab Results 11/09/24 Range/Units 09:18 Urine Color Colorless Urine Appearance Clear (Clear) Urine pH 6.0 (5.0-8.0) Ur Specific [place] 1.007 (1.001-1.035) Urine Protein Negative (Negative) Urine Glucose (UA) Negative (Negative) Urine Ketones Negative (Negative) Urine Blood Negative (Negative) Urine Nitrite Negative (Negative) Urine Bilirubin Negative (Negative) Urine Urobilinogen <2.0 (<2.0) mg/dL Ur Leukocyte Esterase Negative (Negative) Disposition Clinical Impression: Scrotal pain Disposition: HOME SELF-CARE Condition: Stable Instructions (If sedation given, give patient instructions): Scrotal Pain (ED) Additional Instructions: Please return to the Emergency Department if symptoms worsen or any other concerns. Prescriptions: Ibuprofen [Motrin] 600 mg PO Q8HR PRN #20 tab PRN Reason: Pain Is patient prescribed a controlled substance at d/c from ED?: No Referrals: Jose Myrick MD [Primary Care Provider] - 1-2 days Carlos Neri MD [STAFF PHYSICIAN] - 1-2 days Time of Disposition: 10:52
[2024-11-09 11:30] VITALS: BP 118/70; PULSE 63; TEMP 98.1
== END 2024-11-09 11:30 | disposition home or self-care (01) ==
LOC: EC 09:02
DX: N50.82 Scrotal pain (principal); F17.290 Nicotine dependence, other tobacco product, uncomplicated; Z88.1 Allergy status to other antibiotic agents; Z88.8 Allergy status to other drugs, medicaments and biological substances
CPT/HCPCS: 76870; 81003; 93975; 99284